=== PATIENT | female | born 1960 | race Caucasian/White ===

== ENCOUNTER → 2017-05-11 12:38 | Outpatient (CLI) | payer BC, MEDICARE, SELFPAY ==
[2017-05-11 13:57] VITALS: PULSE 100; PULSE 103; PULSE 106; PULSE 110; PULSE 112; PULSE 88; PULSE 89; O2SAT 82; O2SAT 84; O2SAT 86; O2SAT 90; O2SAT 92; O2SAT 95
--- NOTE | 2017-05-11 14:09 | CPS ---
Patient has oxygen established at home by [facility]. 6 minute walk began with patient on room air. At 1 min, her spo2 was 82%, rested and applied pt's own 2lpm demand flow At 2 min, her spo2 was 84%, rested and increased to 3lpm demand flow At 4 min, her spo2 was 86%, rested and increased to 4lpm demand flow At 6 min, her spo2 was 86%, rested and placed on 2LPM CONTINUOUS flow. Patient ambulated another minute(4 laps) with spo2 maintaining at 92%
--- NOTE | 2017-05-12 07:06 | WT_ITS ---
PSN 6 Minute Walk Test - 6 Minute Walk Test 6 Minute Walk Test: 6 Minute Walk Test PSN:6-Minute Walk Test Start: 05/11/17 13: 57 Freq: Status: Active Protocol: RESP.6MINW Document 05/11/17 13:57 [facility] (Rec: 05/11/17 14:24 [facility] [id number]) 6 Minute Walk Test Date Performed 05/11/17 Time Performed 12:30 Height 5 ft 4 in Weight: 86.636 kg Weight in Pounds 191.[address]: Rick Torres Assistive device used: None Pre-test Oxygen Delivery Method Room Air Pulse Ox (%) 92 Pulse Rate (60-100 beats/min) 88 Dyspnea Shi Scale (0-10) 1 1st minute Oxygen Delivery Method Room Air Pulse Ox (%) 82 Pulse Rate (60-100 beats/min) 103 H Dyspnea Shi Scale (0-10) 2 Reported Symptoms Cyanotic Increased Work of Breathing Dizziness 2nd minute Oxygen Flow Rate (L/min) 2 Oxygen Delivery Method Nasal Cannula Pulse Ox (%) 84 Pulse Rate (60-100 beats/min) 100 Dyspnea Shi Scale (0-10) 2 Number of Rests Taken 1 Reported Symptoms Increased Work of Breathing Dizziness 3rd minute Oxygen Flow Rate (L/min) 3 Oxygen Delivery Method Nasal Cannula Pulse Ox (%) 90 Pulse Rate (60-100 beats/min) 106 H Dyspnea Shi Scale (0-10) 3 Reported Symptoms Increased Work of Breathing 4th minute Oxygen Flow Rate (L/min) 3 Oxygen Delivery Method Nasal Cannula Pulse Ox (%) 86 Pulse Rate (60-100 beats/min) 110 H Dyspnea Shi Scale (0-10) 4 Number of Rests Taken 1 Reported Symptoms Increased Work of Breathing Dizziness 5th minute Oxygen Flow Rate (L/min) 4 Oxygen Delivery Method Nasal Cannula Pulse Ox (%) 92 Pulse Rate (60-100 beats/min) 100 Dyspnea Shi Scale (0-10) 3 Reported Symptoms Increased Work of Breathing 6th minute Oxygen Delivery Method Nasal Cannula Pulse Ox (%) 86 Pulse Rate (60-100 beats/min) 112 H Dyspnea Shi Scale (0-10) 4 Number of Rests Taken 1 Reported Symptoms Increased Work of Breathing Dizziness Post-test Oxygen Flow Rate (L/min) 2 Oxygen Delivery Method Nasal Cannula Pulse Ox (%) 95 Pulse Rate (60-100 beats/min) 89 Dyspnea Shi Scale (0-10) 1 Full Laps Walked 12 Partial Lap, Number of Tiles Walked 20 Total Distance Walked (ft) 728 05/11/17 14:09 Cardiopulmonary Services by Aicha Jones Patient has oxygen established at home by [facility]. 6 minute walk began with patient on room air. At 1 min, her spo2 was 82%, rested and applied pt's own 2lpm demand flow At 2 min, her spo2 was 84%, rested and increased to 3lpm demand flow At 4 min, her spo2 was 86%, rested and increased to 4lpm demand flow At 6 min, her spo2 was 86%, rested and placed on 2LPM CONTINUOUS flow. Patient ambulated another minute(4 laps) with spo2 maintaining at 92% Initialized on 05/11/17 14:09 - END OF NOTE - Interpretation Interpretation: Patient was noted to be 92% on room air. The patient was able to travel a total of 728 feet over the course of 6 minutes, but did require 4 breaks secondary to increased work of breathing and leg pain. Patient also was titrated up on demand flow oxygen, but required 2 L/min of continuous flow to maintain saturations. These findings are consistent with a respiratory limitation exercise tolerance - Recommendations Recommendations: The patient requires no supplemental oxygen at rest. However, patient should be using continuous flow oxygen with ambulation at 2 L/min.
== END ==
PROVIDERS: Family Provider Preventive Medicine Occupational Medicine; PCP Preventive Medicine Occupational Medicine; Visit Provider Internal Medicine Critical Care Medicine
DX: R06.9 Unspecified abnormalities of breathing (principal); M79.606 Pain in leg, unspecified
CPT/HCPCS: 94618

== ENCOUNTER → 2017-05-16 09:48 | Outpatient (CLI) | payer BC, MEDICARE, SELFPAY ==
--- NOTE | 2017-05-18 11:26 | PFT ---
INTRODUCTION: The patient is a 57-year-old female currently under the care of Dr. Torres that presents for pulmonary function testing secondary to a diagnosis of COPD. Respiratory therapy reports good patient effort reports no other concerns. Bronchodilators were used during testing. INTERPRETATION: Forced expiration spirometry demonstrates the presence of a very severe large airways obstructive ventilatory defect. There was no significant response to aerosolized bronchodilators, based upon strict ATS criteria. Spirograms are of fair quality and do not plateau indicating slow emptying of the lungs. The respiratory flow volume loop reveals decreased expiratory flow rates at all lung volumes consistent with airways obstruction. Body plethysmography was performed and reveals an elevated RV to 193% of predicted, indicative of underlying air trapping. Diffusing capacity by single breath CO is severely reduced at 25% of predicted. When compared to previous pulmonary function studies dated July 2015 there is been stability in the patient's spirometric values with a notable 19% decrease in DLCO. IMPRESSION: These pulmonary function studies demonstrate the presence of an irreversible very severe large airways obstructive ventilatory defect with associated air trapping and symmetric reduction in diffusing capacity. There has been a 19% reduction in the patient's DLCO since PFTs were last completed in July 2015. Clinical correlation is recommended.
== END ==
PROVIDERS: Family Provider Preventive Medicine Occupational Medicine; PCP Preventive Medicine Occupational Medicine; Visit Provider Internal Medicine Critical Care Medicine
DX: J44.9 Chronic obstructive pulmonary disease, unspecified (principal)
CPT/HCPCS: 94060; 94726; 94729

== ENCOUNTER → 2017-06-26 11:20 | Outpatient (CLI) | payer BC, MEDICARE, SELFPAY ==
--- NOTE | 2017-06-26 11:32 | RAD_ITS ---
STUDY: X-RAY CHEST REASON FOR EXAM: Female, 57 years old. Increasing shortness of breath. TECHNIQUE: Frontal and lateral views of the chest. COMPARISON: 07/12/2016. FINDINGS: The lungs are hyperexpanded. There are coarsened interstitial markings suggestive of mild chronic fibrosis. No gross focal infiltrates. No gross effusions. Normal size heart. Normal mediastinum and tyrone. Normal visualized pulmonary arteries. Normal visualized aortic arch and descending thoracic aorta. There are diffuse degenerative changes of the visualized thoracic spine. Normal visualized ribs, clavicles, and shoulders. There is no demonstrated abnormality of the visualized soft tissue structures of the upper abdomen. RAD/Chest PA and Lateral IMPRESSION: No acute chest disease. COPD with probable mild fibrosis. Electronically Signed: Marcio Harmon MD at 16:41 EDT , Service support ,
[2017-06-26 12:54] LABS: Anion Gap 6 (5-15); BUN 12 mg/dL (7-18); BUN/Creat Ratio 16.6 RATIO (10-20); Calcium,Total 8.9 mg/dL (8.5-10.1); Chloride 95 mmol/L (98-107); Creatinine, Serum 0.72 mg/dL (0.55-1.02); EST Glomerular Filtration Rate 88 mL/min (>60); Est Glom Filt Rate - Afr Amer 106 mL/min (>60); Glucose 141 mg/dL (74-106); Potassium 3.7 mmol/L (3.5-5.1); Sodium Level 141 mmol/L (136-145)
[2017-06-26 13:15] LABS: BNP,B-Type NATRIURETIC PEPTIDE 13.5 pg/mL (0-100)
== END ==
PROVIDERS: Family Provider Preventive Medicine Occupational Medicine; PCP Preventive Medicine Occupational Medicine; Visit Provider Nurse Practitioner Acute Care
DX: R06.02 Shortness of breath (principal); R05 Cough
CPT/HCPCS: 36415; 71046; 80048; 83880; 87070; 87205

== ENCOUNTER 2019-07-29 20:32 | Inpatient (IN) | payer BC, MEDICARE, SELFPAY ==
[2018-10-07 14:08] VITALS: BMI 33.5
[2019-07-29] VITALS (17 sets, daily range): BP systolic 42–111; BP diastolic 14–85; PULSE 60–91; RESP 14–23; O2SAT 89–100; BMI 35.2
--- NOTE | 2019-07-29 20:39 | PCM.HP.STD ---
Problem List (1) Pneumonia Status: Acute (2) Septic shock Status: Acute (3) Murmur, cardiac Status: Chronic (4) Sinus infection Status: Inactive Qualifiers: (5) AISSATOU (obstructive sleep apnea) Status: Chronic (6) SOB (shortness of breath) on exertion Status: Inactive (7) AISSATOU treated with BiPAP Status: Chronic (8) Chronic respiratory failure with hypoxia Status: Chronic (9) Stage 4 very severe COPD by GOLD classification Status: Chronic History of Present Illness Date of Admission: 07/29/19 Chief Complaint: respiratory failure from pnuemonia History was obtained from a previous hospitalist as patient was intubated. The patient is a 59 year old F with a significant history of end-stage COPD who was transferred from arrival emergency department because of respiratory failure from pneumonia. Patient was intubated at arrival emergency department. She became hypotensive and she arrested. She went from V. tach to asystole to PEA to normal sinus rhythm. Patient was started on levo fed for septic shock. Central line was placed. Patient was previously on hospice but she rescinded her decision before this new presentation. Pick Up Attendant was notified by emergency department doctor. Patient is allergic to penicillin. She was given vancomycin and Levaquin at outside hospital ED. COVID-19 test was done at outside hospital ED. Results of COVID-19 is pending. The patient is a 59 year old F with a significant history of end-stage COPD who was transferred from arrival emergency department because of septic shock secondary to pneumonia. Septic shock Continue patient on vancomycin and Levaquin. Add azithromycin. Get blood culture x2. Get sputum culture. Get strep pneumonia antigen and Legionella urine antigen. Get MRSA nasal screen. Pick Up Attendant consult. Continue Levophed. Stop amiodarone since patient is hypotensive with systolic blood pressure in the 50s. Get lactic acid. Follow COVID- 19 test ordered from outside hospital ED. Trend CBC and BMP. Get chest x-ray in a.m. Acute hypoxemic respiratory failure Continue vent. ABG Consult log operations coordinator. DVT Prophylaxis Subcutaneous Lovenox. Past Medical History Past Medical History (Chronic Problems): Chronic Problems (Last Reviewed 07/29/19 @ 20:[address] Feliberto Rahman MD) Murmur, cardiac (Chronic) AISSATOU (obstructive sleep apnea) (Chronic) AISSATOU treated with BiPAP (Chronic) Chronic respiratory failure with hypoxia (Chronic) Stage 4 very severe COPD by GOLD classification (Chronic) Medical History: Medical History (Last Reviewed 07/29/19 @ 20:[address] Feliberto Rahman MD) Bilateral leg edema R60.0 COPD with acute exacerbation J44.1 Hyperlipidemia E78.5 Low back pain M54.5 Lower gastrointestinal hemorrhage K92.2 Nonallopathic lesion of cervical region M99.9 Nonallopathic lesion of rib cage M99.9 Nonallopathic lesion of thoracic region M99.9 Pneumonia J18.9 Rectal hemorrhage K62.5 Thoracic back pain M54.6 Thrush B37.0 Yeast infection B37.9 Chronic respiratory failure J96.10 Diabetes mellitus E11.9 AISSATOU (obstructive sleep apnea) G47.33 Stage 4 very severe COPD by GOLD classification J44.9 Allergies acetaminophen [From Tylenol-Codeine #3] Allergy (Intermediate, Verified 10/07/18 13:47) Other - hallucinations bee venom protein (honey bee) Allergy (Intermediate, Verified 10/07/18 13:47) Other - localized hearing codeine [From Tylenol-Codeine #3] Allergy (Intermediate, Verified 10/07/18 13:47) Other - hallucinations aspirin Allergy (Mild, Verified 10/07/18 13:47) Nausea baclofen Allergy (Mild, Verified 10/07/18 13:47) Nausea celecoxib [From Celebrex] Allergy (Mild, Verified 10/07/18 13:47) Nausea rofecoxib [From Vioxx] Allergy (Unknown, Verified 10/07/18 13:47) Unknown ibuprofen [From Advil] Adverse Reaction (Mild, Verified 10/07/18 13:47) Other - tunnel hearing lisinopril Adverse Reaction (Mild, Verified 10/07/18 13:47) Other - woozy Home Medications: Ambulatory Orders Medication Instructions Recorded albuterol sulfate 90 mcg/actuation 2 puff INHALATION Q4H PRN g 04/13/17 aerosol inhaler chlorpheniramine maleate 4 mg 4 mg PO Q4H PRN 04/13/17 tablet metformin 750 mg tablet,extended 750 mg PO QDAY 04/13/17 release 24 hr pantoprazole 40 mg tablet,delayed 40 mg PO BID tab 04/13/17 release albuterol sulfate 2.5 mg INHALATION Q4H PRN #180 vial 12/06/17 roflumilast 500 mcg tablet 500 mcg PO QDAY #90 tab 01/02/18 budesonide 32 mcg/actuation nasal 1 spray INTRANASAL DAILY 01/23/18 spray chlorpheniramine maleate 4 mg 4 mg PO Q6H 01/23/18 tablet fluticasone 250 mcg-salmeterol 50 1 inh INHALATION BID 01/23/18 mcg/dose blistr powdr for inhalation furosemide 40 mg tablet 20 mg PO ONCE tab 01/23/18 hydrocodone 7.5 mg-acetaminophen 1 tab PO TID PRN tab 01/23/18 325 mg tablet loratadine 10 mg tablet 10 mg PO DAILY 01/23/18 lorazepam 1 mg tablet 0.5 mg PO .qid tab 01/23/18 morphine concentrate 100 mg/5 mL 2.5 mg SUBLINGUAL Q6H ml 01/23/18 (20 mg/mL) oral solution sodium chloride 0.65 % nasal spray 1 spray INTRANASAL Q1-4H PRN 01/23/18 aerosol tiotropium bromide 2.5 2 puff INHALATION QDAY #3 ea 06/19/18 mcg/actuation mist for inhalation azithromycin 250 mg tablet 250 mg PO QDAY #6 tab 10/07/18 prednisone 10 mg tablet 10 mg PO QDAY #30 tab 10/07/18 prednisone 5 mg tablet 5 mg PO QDAY #30 tab 10/14/18 Surgical History: Surgical History (Last Reviewed 07/29/19 @ 20:[address] Feliberto Rahman MD) H/O wisdom tooth extraction K08.499 1993 Smoking Status: Former smoker - *Family History Maternal Family History: Family History (Last Reviewed 07/29/19 @ 20:[address] Feliberto Rahman MD) Mother CVA (cerebral vascular accident) Kidney disease Father Diabetes Cancer Brother Heart disease Diabetes Sister Diabetes Review of Systems Unable to obtain accurate/complete ROS d/t: Intubated. VTE Information - Inpt Only VTE Present on Admission: No VTE Pharm Prophylaxis ordered?: Yes Patient Problems: Active and Suspected Problems (Last Reviewed 07/29/19 @ 20:[address] Feliberto Rahman MD) Pneumonia (Acute) Septic shock (Acute) - Physical Exam Vitals/I&O's: Weight: 93 kg Body Mass Index (BMI) 35.2 General: Alert, - - Intubated HEENT: Atraumatic, PERRLA, EOMI, Normocephalic Neck: Supple, Trachea Midline Lungs: Clear to auscultation, Normal air movement Cardiovascular: Regular rate, Normal S1, Normal S2 Abdomen: Bowel Sounds Present, Soft, Non Tender Extremities: Cool, Edema Skin: No rashes, No breakdown Musculoskeletal: No Tenderness to Palpation of Joints or Extremities Neurological: Cranial nerves II-XII grossly intact Psych/Mental Status: Anxious Current Medications Norepinephrine Bitartrate 8 mg (/ Sodium Chloride) 250 mls @ 9.375 mls/hr CONT INF .[id number] TI; Protocol Sodium Chloride () 250 mls @ 15 mls/hr IV .[id number] PRN PRN Reason: Saline Flush Sodium Chloride () 250 mls @ 15 mls/hr IV .[id number] PRN PRN Reason: Additional IVPB Infusion Sodium Chloride () 10 - 40 ml IV UD PRN PRN Reason: Multilumen/Hoffman Flush Sodium Chloride (0.9% Nacl (Sterile) Posiflush) 10 - 40 ml IV UD PRN PRN Reason: Port access or dressing change Sodium Chloride () 10 - 40 ml IV UD PRN PRN Reason: SALINE FLUSH Assessment/Plan All Active Problems (Last Reviewed 07/29/19 @ 20:[address] Feliberto Rahman MD) Pneumonia (Acute) Septic shock (Acute) The patient is a 59 year old F with a significant history of end-stage COPD who was transferred from arrival emergency department because of septic shock secondary to pneumonia. Septic shock Continue patient on vancomycin and Levaquin. Add aztreonam. Get blood culture x2. Get sputum culture. Get strep pneumonia antigen and Legionella urine antigen. Get MRSA nasal screen. Pick Up Attendant consult. Continue Levophed. Stop amiodarone since patient is hypotensive with systolic blood pressure in the 50s. Get lactic acid. Follow COVID- 19 test ordered from outside hospital ED. On a propofol and fentanyl drip. On home med list is prednisone. Will start patient on hydrocortisone. Trend CBC and BMP. Get Xray Acute hypoxemic respiratory failure Continue vent. ABG Consult log operations coordinator. DVT Prophylaxis Subcutaneous Lovenox. Inpatient E&M: 54153 Init Hosp L3
[2019-07-29] MEDS: Propofol 10MG/Ml 1,000 MG/100 ML Bottle 5.6 MG CONT INF (21:39)
[2019-07-29] MEDS: fentaNYL drip 100 ML 2.5 MCG IV (21:39)
--- NOTE | 2019-07-29 21:40 | RAD_ITS ---
STUDY: X-RAY CHEST REASON FOR EXAM: Female, 59 years old. ETT PLACEMENT, CENTRAL LINE PLACEMENT, OG TUBE PLACEMENT TECHNIQUE: AP portable COMPARISON: June 26, 2017 FINDINGS: Lungs are mildly hyperinflated but clear.. Blunted left costophrenic sulcus consistent with pleural thickening although cannot exclude tiny effusion. Normal size heart. Normal mediastinum and tyrone. Normal visualized pulmonary arteries. Normal visualized aortic arch and descending thoracic aorta. Central line is seen on the right with tip in distal superior vena cava approximately 3 cm proximal to the atriocaval junction. Right central line is also noted with tip in distal superior vena cava Endotracheal tube is noted with tip approximately 5 cm proximal to yissel Normal visualized thoracic spine. Normal visualized ribs, clavicles, and shoulders. Nasogastric tube is noted with tip in the proximal gastric cardia There is no demonstrated abnormality of the visualized soft tissue structures of the upper abdomen. RAD/Chest 1 View (Portable) IMPRESSION: No acute disease status post OG tube and multiple line placement Electronically Signed: Kris Boggs MD at 21:58 EDT , Service support ,
[2019-07-29] MEDS: Hydrocortisone Sod Succinate 100 MG/2 ML Vial 50 MG IV (22:04)
[2019-07-29] MEDS: Chlorhexidine 15 ML PO (22:30)
[2019-07-29 22:43] LABS: Triglycerides 117 mg/dL
[2019-07-29 22:46] LABS: Magnesium 1.8 mg/dL (1.6-2.6)
[2019-07-29 22:50] LABS: Base Excess 0 mmol/L (-2 to +2); Bicarbonate 27.8 mmol/L (22-26); PO2 102 mmHG (75-100); SO2 96 % (95-99); Total Carbon Dioxide 30 mmol/L; pCO2 66.5 mmHg (35-45); pH 7.23 (7.35-7.45)
[2019-07-29 22:50] LABS: Lactic Acid 2.4 mmol/L (0.4-1.9)
[2019-07-29 22:57] LABS: CPK Total, Creatine Kinase 280 U/L (26-192)
[2019-07-29 23:36] LABS: M R Staph aureus DNA By PCR Negative (Negative); Probe Check PASS; Specimen Processing Control PASS
[2019-07-29 23:39] LABS: Allen Test POS; Blood Gas Specimen Type ART; FI02 50; Mode A-C; O2 Delivery Device Vent; PEEP 5; RR 16; SITE L RADIAL; Vt 450
[2019-07-29 23:40] LABS: Time Given 2138
[2019-07-30] VITALS (59 sets, daily range): BP systolic 91–148; BP diastolic 31–70; PULSE 18–96; RESP 16–20; TEMP 36.1–37.1; O2SAT 89–100; BMI 35.4
[2019-07-30 02:19] LABS: Reflex Lactate? Y
[2019-07-30 02:22] LABS: Lactic Acid 2.8 mmol/L (0.4-1.9)
[2019-07-30 02:23] LABS: Reflex Lactate? N
--- NOTE | 2019-07-30 02:39 | ECHOCS_ITS ---
Reason For Study: ARRHYTHMIA Procedure This was a 2D Doppler, Color Flow transthoracic echocardiogram. The study was technically difficult. The study was technically limited. Patient was scanned in supine position during reflux assessment. Exam performed portable in ICU/CCU. The exam was abbreviated due to the COVID 19 protocol. Left Ventricle Normal size and thickness. The estimated ejection fraction is 65 %. Stage 1 diastolic dysfunction. No regional wall motion abnormalities noted. Right Ventricle Normal size and thickness. Normal systolic function. Atria Normal left atrium. Normal right atrium. Normal atrial septum. Mitral Valve The mitral valve is structurally normal. No prolapse or stenosis seen. Tricuspid Valve Normal tricuspid valve. Trivial tricuspid valve insufficiency. Right ventricular systolic pressure estimated to be 15 mmHg. Aortic Valve Normal aortic valve. Trisinus/trileaflet aortic valve. Pulmonic Valve Normal pulmonic valve. Great Vessels Normal aortic root. Normal arch. Normal inferior vena cava. Inferior vena cava collapse with sniff. Pericardium/Pleural No pericardial effusion. Medication Diluted definity 3.0ml given slow IV push to enhance endocardial definition. MMode/2D Measurements & Calculations LVIDd: 4.8 cm IVSd: 1.1 cm LAV(MOD-bp): 35.4 ml LVIDs: 3.8 cm LVPWd: 1.0 cm FS: 21.9 % LAV(MOD-bp) Indexed: 17.9 ml/m2 LAV(MOD-sp2): 39.9 ml LAV(MOD-sp4): 30.3 ml LA A4 area: 13.1 cm2 RA A4 area: 11.8 cm2 Doppler Measurements & Calculations MV E max megan: 82.8 cm/sec Ao V2 max: 159.2 cm/sec LV V1 max: 114.9 cm/sec MV A max megan: 100.2 cm/sec Ao max P.1 mmHg LV V1 max P.3 mmHg MV E/A: 0.83 Interpretation Summary The estimated ejection fraction is 65 %. Stage 1 diastolic dysfunction. Trivial tricuspid valve insufficiency. Right ventricular systolic pressure estimated to be 15 mmHg. Compared to echo report dated 10/12/2014, no appreciable changes noted. The study was technically difficult. Contrast injection was performed. Ordering Physician: Feliberto Rahman Referring Physician: Jayden Celaya Performed By: Radha Keller RDCS, RVT
--- NOTE | 2019-07-30 02:40 | EKG12_ITS ---
Test Reason : ELEVATED TROP Blood Pressure : / mmHG Vent. Rate : 081 BPM Atrial Rate : 081 BPM P-R Int : 134 ms QRS Dur : 084 ms QT Int : 362 ms P-R-T Axes : 078 -19 018 degrees QTc Int : 420 ms Normal sinus rhythm Low voltage QRS (limb leads) Confirmed by SAVITA DENNIS, ABRAHAM ([id number]), design editor SARAH GONZALEZ ([id number]) on 08/04/2019 3:00:34 PM Referred By: BRAXTON Confirmed By:ABRAHAM BARNEY MD
[2019-07-30] MEDS: Atorvastatin Calcium 40 MG Tablet PO ×2 (03:40→21:20)
[2019-07-30] MEDS: Aspirin 325 MG Tablet PO (03:40)
[2019-07-30] MEDS: Heparin Injection (Vial) 5,000 UNIT/ML VIAL 7500 UNIT IV (03:45)
[2019-07-30] MEDS: HEPARIN/D5w 25,000 UNITS 25,000 UNITS/250 ML IV.SOLN. 14 UNITS IV (03:45)
[2019-07-30 03:54] LABS: International Normalized Ratio 1.7
[2019-07-30 03:55] LABS: Partial Thromboplast Time 35.6 Seconds (24.1-36.2)
[2019-07-30] MEDS: Hydrocortisone Sod Succinate 100 MG/2 ML Vial 50 MG IV ×3 (04:02→21:20)
[2019-07-30] MEDS: 0.9% Saline Lock 10 ML Syringe IV ×6 (04:03→21:19)
[2019-07-30] MEDS: 0.9% Normal Saline 1,000 ML 75 ML IV ×2 (04:51→20:45)
[2019-07-30 04:53] LABS: Absolute Lymphocyte Count 0.87 X10^3/uL (0.83-4.51); Absolute Neutrophil Count 19.5 X10^3/uL (2.0-7.7); Basophil# 0.04 X10^3/uL; Basophil% 0.2 % (0-1); Eosinophil# 0.21 X10^3/uL; Hematocrit 32.7 % (37-47); Hemoglobin 9.9 g/dL (12.0-15.0); Lymphocyte # 0.87 X10^3/ul (4.0); Lymphocyte % 4.1 % (19-41); Mean Corp Hgb Conc 30.3 g/dL (32-36); Mean Corpuscular Hgb 29.2 pg (27.0-32.0); Mean Corpuscular Volume 96.5 fL (81-99); Mean Platelet Vol. 11.1 fl (6.2-12.0); Monocyte# 0.75 X10^3/uL; Monocyte% 3.5 % (0-10); NRBC Flagged by Analyzer 0 % (0-5); Neutrophil # 19.47 X10^3/uL (2.7-7.7); Neutrophil % 90.5 % (47-70); Platelet Count 208 K/mm3 (150-450); RBC Distribution Width CV 13.2 % (11.6-14.6); RBC Distribution Width SD 47.4 fl (35.1-43.9); Red Blood Count 3.39 M/mm3 (4.2-5.4); White Blood Count 21.5 K/mm3 (4.4-11.0)
[2019-07-30] MEDS: Propofol 10MG/Ml 1,000 MG/100 ML Bottle 8.4 MG CONT INF ×2 (04:56→10:00)
[2019-07-30 05:05] LABS: Anion Gap 9 (5-15); BUN 31 mg/dL (7-18); BUN/Creat Ratio 17.1 RATIO (10-20); Calcium,Total 7.5 mg/dL (8.5-10.1); Chloride 102 mmol/L (98-107); Creatinine, Serum 1.81 mg/dL (0.55-1.02); EST Glomerular Filtration Rate 30 mL/min (>60); Est Glom Filt Rate - Afr Amer 37 mL/min (>60); Glucose 214 mg/dL (74-106); Potassium 4.8 mmol/L (3.5-5.1); Sodium Level 136 mmol/L (136-145)
[2019-07-30 05:21] LABS: Lactic Acid 1.7 mmol/L (0.4-1.9)
--- NOTE | 2019-07-30 06:02 | PCM.RX.CS ---
Consult Pharmacy has been consulted to manage selected antiobiotic: Vancomycin Type of Consult: New start Suspected Infection: Sepsis Labs: Sodium 136 mmol/L (136-145) 07/30/19 04:40 Potassium 4.8 mmol/L (3.5-5.1) 07/30/19 04:40 Chloride 102 mmol/L (98-107) 07/30/19 04:40 Carbon Dioxide 25.0 mmol/L (21.0-32.0) 07/30/19 04:40 Anion Gap 9 (5-15) 07/30/19 04:40 BUN 31 mg/dL (7-18) H 07/30/19 04:40 Creatinine 1.81 mg/dL (0.55-1.02) H 07/30/19 04:40 Est GFR (MDRD) Af Amer 37 mL/min (>60) L 07/30/19 04:40 Est GFR (MDRD) Non-Af 30 mL/min (>60) L 07/30/19 04:40 BUN/Creatinine Ratio 17.1 RATIO (10-20) 07/30/19 04:40 Glucose 214 mg/dL (74-106) H 07/30/19 04:40 Microbiology: Microbiology 07/30/19 03:30 Stool C. difficile DNA Amplification - Final 07/29/19 21:00 Mucosa - Nasopharyngeal Respiratory Panel (PCR) - Preliminary 07/29/19 22:10 Urine Catheter - Jimenez Streptococcus pneumoniae Antigen (M - Final 07/29/19 22:10 Urine Catheter - Jimenez Legionella Antigen - Final Weight used for dosin kg Estimated Creatinine Clearance: 36.99 Goal Trough: 15-20 mcg/mL Pharmacy Plan for Drug Dosing: Pharmacy Service will continue to monitor and adjust dosing as required. Medications Vancomycin HCl 1,250 mg/ (Sodium Chloride) 275 mls @ 167 mls/hr IV Q24H TI Discontinued Medications Vancomycin HCl 1,500 mg/ (Sodium Chloride) 530 mls @ 250 mls/hr IV X1 ONE Stop: 07/30/19 00:07 Last Admin: 07/30/19 02:39 Dose: Infused Documented by: Follow-Up Labs: Trough Vancomycin Labs to be done on [date and time ordered]: 07/30 @ 3432
[2019-07-30] MEDS: Ipratropium/Albuterol Sulfate 3 ML AMPUL.NEB INHALATION ×4 (07:00→22:50)
[2019-07-30] MEDS: Chlorhexidine 15 ML PO ×2 (08:10→21:19)
--- NOTE | 2019-07-30 08:24 | CON.PCM_ITS ---
Problem List (1) Respiratory arrest before cardiac arrest Status: Acute (2) Acute kidney injury Status: Acute (3) Acute and chronic respiratory failure ([id number]) Status: Chronic Qualifiers: Respiratory failure complication: hypoxia and hypercapnia Qualified Code(s): J96.21 - Acute and chronic respiratory failure with hypoxia; J96.22 - Acute and chronic respiratory failure with hypercapnia (4) Non-ST elevated myocardial infarction Status: Acute (5) Pneumonia Status: Suspected Qualifiers: Pneumonia type: due to unspecified organism Laterality: unspecified laterality Lung location: unspecified part of lung Qualified Code(s): J18.9 - Pneumonia, unspecified organism (6) Septic shock Status: Acute (7) AISSATOU (obstructive sleep apnea) Status: Chronic (8) AISSATOU treated with BiPAP Status: Chronic (9) Chronic respiratory failure with hypoxia Status: Chronic (10) Stage 4 very severe COPD by GOLD classification Status: Chronic Reason for Consult Date of Consultation: 07/30/19 Reason for Consultation: Status post arrest History of Present Illness: The patient is a 59 year old F, with past medical history listed below and well- known to me from the outpatient office, who presented to [facility] secondary to progressive shortness of breath. Patient reportedly revoked her DNR DNI status and shortly after arrival to the emergency department, patient had a respiratory arrest requiring intubation. This was followed by a cardiac arrest requiring 30 minutes of CPR, 3 rounds of epinephrine, amiodarone and 2 electric shocks. Patient reportedly had V. tach, asystole and PEA as reported rhythms. Patient was placed on Levophed by the outside ER. [facility] was consulted, but stated that the patient was likely terminal. A COVID test was reportedly sent on the patient prior to transfer. I was called at home and accepted the patient. On arrival to our intensive care unit, patient was hypoxic and hypotensive. Patient was receiving Levophed for septic shock, but have been given vasopressin as a bolus. Patient was given vancomycin and Levaquin at the outside facility. Nursing reported the patient was able to follow commands and was making attempts to extubate herself. Patient was initiated on vasopressin with some improvement in Levophed requirements. Patient was also initiated on stress dose steroids. This morning, patient was able to nod her head yes to chest pain. This was reproducible with palpation of the sternum. Patient was unable to provide additional history secondary to intubation, but was following commands appropriately. Respiratory had reported significant secretions that have been sent for culture. Oxygenation has significantly improved and patient is currently on 35%. Unable to obtain a full review of systems secondary to patient's intubated status. Past Medical History Past Medical History (Chronic Problems): Chronic Problems (Last Reviewed 07/29/19 @ 20:[address] Feliberto Rahman MD) Acute and chronic respiratory failure ([id number]) (Chronic) Murmur, cardiac (Chronic) AISSATOU (obstructive sleep apnea) (Chronic) AISSATOU treated with BiPAP (Chronic) Chronic respiratory failure with hypoxia (Chronic) Stage 4 very severe COPD by GOLD classification (Chronic) Medical History: Medical History (Last Reviewed 07/29/19 @ 20:[address] Feliberto Rahman MD) Bilateral leg edema R60.0 COPD with acute exacerbation J44.1 Hyperlipidemia E78.5 Low back pain M54.5 Lower gastrointestinal hemorrhage K92.2 Nonallopathic lesion of cervical region M99.9 Nonallopathic lesion of rib cage M99.9 Nonallopathic lesion of thoracic region M99.9 Pneumonia J18.9 Rectal hemorrhage K62.5 Thoracic back pain M54.6 Thrush B37.0 Yeast infection B37.9 Chronic respiratory failure J96.10 Diabetes mellitus E11.9 AISSATOU (obstructive sleep apnea) G47.33 Stage 4 very severe COPD by GOLD classification J44.9 Allergies acetaminophen [From Tylenol-Codeine #3] Allergy (Intermediate, Verified 10/07/18 13:47) Other - hallucinations bee venom protein (honey bee) Allergy (Intermediate, Verified 10/07/18 13:47) Other - localized hearing codeine [From Tylenol-Codeine #3] Allergy (Intermediate, Verified 10/07/18 13:47) Other - hallucinations aspirin Allergy (Mild, Verified 10/07/18 13:47) Nausea baclofen Allergy (Mild, Verified 10/07/18 13:47) Nausea celecoxib [From Celebrex] Allergy (Mild, Verified 10/07/18 13:47) Nausea rofecoxib [From Vioxx] Allergy (Unknown, Verified 10/07/18 13:47) Unknown ibuprofen [From Advil] Adverse Reaction (Mild, Verified 10/07/18 13:47) Other - tunnel hearing lisinopril Adverse Reaction (Mild, Verified 10/07/18 13:47) Other - woozy Home Medications: Ambulatory Orders Medication Instructions Recorded albuterol sulfate 90 mcg/actuation 2 puff INHALATION Q4H PRN g 04/13/17 aerosol inhaler chlorpheniramine maleate 4 mg 4 mg PO Q4H PRN 04/13/17 tablet metformin 750 mg tablet,extended 750 mg PO QDAY 04/13/17 release 24 hr pantoprazole 40 mg tablet,delayed 40 mg PO BID tab 04/13/17 release albuterol sulfate 2.5 mg INHALATION Q4H PRN #180 vial 12/06/17 roflumilast 500 mcg tablet 500 mcg PO QDAY #90 tab 01/02/18 budesonide 32 mcg/actuation nasal 1 spray INTRANASAL DAILY 01/23/18 spray chlorpheniramine maleate 4 mg 4 mg PO Q6H 01/23/18 tablet fluticasone 250 mcg-salmeterol 50 1 inh INHALATION BID 01/23/18 mcg/dose blistr powdr for inhalation furosemide 40 mg tablet 20 mg PO ONCE tab 01/23/18 hydrocodone 7.5 mg-acetaminophen 1 tab PO TID PRN tab 01/23/18 325 mg tablet loratadine 10 mg tablet 10 mg PO DAILY 01/23/18 lorazepam 1 mg tablet 0.5 mg PO .qid tab 01/23/18 morphine concentrate 100 mg/5 mL 2.5 mg SUBLINGUAL Q6H ml 01/23/18 (20 mg/mL) oral solution sodium chloride 0.65 % nasal spray 1 spray INTRANASAL Q1-4H PRN 01/23/18 aerosol tiotropium bromide 2.5 2 puff INHALATION QDAY #3 ea 06/19/18 mcg/actuation mist for inhalation azithromycin 250 mg tablet 250 mg PO QDAY #6 tab 10/07/18 prednisone 10 mg tablet 10 mg PO QDAY #30 tab 10/07/18 prednisone 5 mg tablet 5 mg PO QDAY #30 tab 10/14/18 Surgical History: Surgical History (Last Reviewed 07/29/19 @ 20:[address] Feliberto aRhman MD) H/O wisdom tooth extraction K08.499 1993 Smoking Status: Former smoker - *Family History Maternal Family History: Family History (Last Reviewed 07/29/19 @ 20:[address] Feliberto Rahman MD) Mother CVA (cerebral vascular accident) Kidney disease Father Diabetes Cancer Brother Heart disease Diabetes Sister Diabetes Review of Systems Unable to obtain accurate/complete ROS d/t: Intubation Patient Problems: Active and Suspected Problems (Last Reviewed 07/29/19 @ 20:[address] Feliberto Rahman MD) Pneumonia (Suspected) Septic shock (Acute) Respiratory arrest before cardiac arrest (Acute) Acute kidney injury (Acute) Non-ST elevated myocardial infarction (Acute) Objective: Chest x-ray was personally reviewed and showed no acute infiltrates that I can tell. Supportive devices appear to be in appropriate locations. Patient has not had an echocardiogram in the last 4 years. Patient's previous pulmonary function test was completed recently showing an FEV1 of 26% with a proportional reduction in DLCO. Patient has refused transplant evaluation in the past. - Physical Exam Vitals/I&O's: Vital Signs Temp Pulse Resp BP Pulse Ox 36.1 C L 84 18 116/43 L 92 07/30/19 04:00 07/30/19 06:56 07/30/19 06:56 07/30/19 06:00 07/30/19 06:56 Oxygen Flow Rate (L/min) 40 Oxygen Delivery Method Mechanical Ventilator Weight: 93.7 kg Body Mass Index (BMI) 35.2 Intake and Output for Last 24 Hours 07/28/19 07/29/19 07/30/19 23:59 23:59 23:59 Intake Total 270.34 / 288.02 1041.13 / 1041.13 Output Total 75 / 75 75 / 75 Balance 195.34 / 213.02 966.13 / 966.13 General: Alert, Cooperative, - - Good vent synchrony. Appears older than stated age. Obese. HEENT: Atraumatic, PERRLA, EOMI, Normocephalic, - - No scleral icterus or injection noted Oral: Moist Mucosa, No Gingival or Mucosal Lesions/ Ulcerations Neck: Supple, No JVD, No Nodes, Trachea Midline Lungs: No rales, Diminished, Rhonchi, Wheezes - Bilateral improves with suctioning Cardiovascular: Regular rate, Regular Rhythm, Normal S1, Normal S2, No murmurs, No rub noted, No Gallop Abdomen: Bowel Sounds Present, Soft, Non Tender, Non-Distended, Obese Extremities: No cyanosis, Clubbing, Edema Skin: No rashes, No breakdown Musculoskeletal: No Tenderness to Palpation of Joints or Extremities Lymphatic: No Cervical, Supraclavicular, or Inguinal Adenopathy Neurological: Cranial nerves II-XII grossly intact, Neuro grossly intact Psych/Mental Status: Normal Affect, Appropriate Microbiology Past 72 Hours 07/29/19 21:00 Mucosa - Nasopharyngeal Respiratory Panel (PCR) - Final 07/30/19 03:30 Stool C. difficile DNA Amplification - Final 07/29/19 22:10 Urine Catheter - Jimenez Streptococcus pneumoniae Antigen (M - Final 07/29/19 22:10 Urine Catheter - Jimenez Legionella Antigen - Final Laboratory Results 07/29/19 21:38: Specimen Type ART, Sample Site L RADIAL, pH 7.23 L, Bicarbonate Actual 27.8 H, POC Total CO2 30, Base Excess 0, O2 Saturation 96, O2 % 50, ABG pCO2 66.5 H, ABG pO2 102 H, Terence Test POS, Respiration Rate 16, O2 Delivery D evice Vent, Vent Mode A-C, Tidal Volume 450, POC PEEP 5, Blood Gas Notified Whom [facility] , Blood Gas Notified Time 213707/29/19 22:00: Magnesium 1.8 07/29/19 22:00: MRSA (PCR) Negative 07/29/19 22:00: Triglycerides 117 07/29/19 22:00: Total Creatine Kinase 280 H 07/29/19 22:00: Troponin I 4.140 H* 07/29/19 22:22: Lactic Acid 2.4 H* 07/30/19 01:30: Troponin I 7.100 H* 07/30/19 01:30: Lactic Acid 2.8 H* 07/30/19 03:35: PT 19.0 H, INR 1.7, APTT 35.6 07/30/19 04:40: WBC 21.5 H, RBC 3.39 L, Hgb 9.9 L, Hct 32.7 L, MCV 96.5, MCH 29.2, MCHC 30.3 L, RDW Std Deviation 47.4 H, RDW Coeff of Kimberlee 13.2, Plt Count 208, MPV 11.1, Immature Gran % (Auto) 0.700, Neut % (Auto) 90.5 H, Lymph % (Auto) 4.1 L, [place] % (Auto) 3.5, Eos % (Auto) 1.0, Baso % (Auto) 0.2, Absolute Neuts (auto) 19.5 H, Absolute Lymphs (auto) 0.87, Nucleated RBC % 0 07/30/19 04:40: Sodium 136, Potassium 4.8, Chloride 102, Carbon Dioxide 25.0, Anion Gap 9, BUN 31 H, Creatinine 1.81 H, Estim Creat Clear Calc 28.90, Est GFR (MDRD) Af Amer 37 L, Est GFR (MDRD) Non-Af 30 L, BUN/Creatinine Ratio 17.1, Glucose 214 H, Calcium 7.5 L 07/30/19 04:40: Troponin I 8.800 H* 07/30/19 04:40: Lactic Acid 1.7 07/30/19 07:00: Troponin I Pending Current Medications Acetaminophen (Tylenol) 650 mg PO Q6H PRN PRN PRN Reason: Pain Score 1-10/Temp > 100.7 F Albuterol Sulfate (Ventolin Aerosols) 2.5 mg INHALATION Q2H PRN PRN PRN Reason: SOB &/OR WHEEZING Albuterol/Ipratropium (Duoneb) 3 ml INHALATION Q4H.RT [facility] Aspirin (Aspirin, Baby) 81 mg PO DAILY@0800 [facility] Atorvastatin Calcium (Lipitor) 40 mg PO QHS [facility] Last Admin: 07/30/19 03:40 Dose: 40 mg Documented by: Chlorhexidine Gluconate () 15 ml PO BID [facility] Last Admin: 07/30/19 08:10 Dose: 15 ml Documented by: Dextrose (D50w Syringe) 0 gm IV X1 PRN; Protocol PRN Reason: Hypoglycemia Glucagon () 1 mg IM .X1 PRN PRN Reason: Hypoglycemia Heparin Sodium (Porcine) (Heparin Na) 0 unit IV UD PRN; Protocol Hydrocortisone Sodium Succinate (Solu-Cortef) 50 mg IV Q8 [facility] Last Admin: 07/30/19 04:02 Dose: 50 mg Documented by: Norepinephrine Bitartrate 8 mg (/ Sodium Chloride) 250 mls @ 9.375 mls/hr CONT INF .[id number] [facility]; Protocol Last Titration: 07/30/19 06:00 Dose: 10 mcg/min, 18.8 mls/hr Documented by: Sodium Chloride () 250 mls @ 15 mls/hr IV .[id number] PRN PRN Reason: Saline Flush Sodium Chloride () 250 mls @ 15 mls/hr IV .[id number] PRN PRN Reason: Additional IVPB Infusion Last Infusion: 07/30/19 04:52 Dose: Infused Documented by: Aztreonam 2 gm/ Sodium (Chloride) 100 mls @ 150 mls/hr IV Q8 TI Stop: 08/05/19 22:01 Last Infusion: 07/30/19 05:39 Dose: Infused Documented by: Levofloxacin (Levaquin Iv) 750 mg in 150 mls @ 100 mls/hr IV Q48 TI Vancomycin IV Pharmacy to Dose (1,500 ea/ Sodium Chloride) 500 mls @ 250 mls/hr IV Q12 PRN; Protocol Fentanyl () 100 mls @ 2.5 mls/hr IV UD [facility]; Protocol Last Titration: 07/30/19 06:00 Dose: 25 mcg/hr, 2.5 mls/hr Documented by: Propofol (Diprivan) 1,000 mg in 100 mls @ 5.622 mls/hr CONT INF .Q12H [facility]; Protocol Last Titration: 07/30/19 06:00 Dose: 15 mcg/kg/min, 8.4 mls/hr Documented by: Vasopressin 20 units/ Sodium (Chloride) 25 mls @ 3 mls/hr IV .[id number] TI Last Infusion: 07/30/19 06:05 Dose: 0.04 units/min, 3 mls/hr Documented by: Pantoprazole Sodium 40 mg/ (Sodium Chloride) 110 mls @ 330 mls/hr IV Q24 TI Heparin Sodium/Dextrose () 25,000 units in 250 mls @ 14 mls/hr IV .[id number] [facility]; Protocol Last Titration: 07/30/19 06:00 Dose: 1,400 units/hr, 14 mls/hr Documented by: Sodium Chloride () 1,000 mls @ 75 mls/hr IV .[id number] TI Last Infusion: 07/30/19 06:00 Dose: 75 mls/hr Documented by: Vancomycin HCl 1,250 mg/ (Sodium Chloride) 275 mls @ 167 mls/hr IV Q24H TI Ondansetron HCl (Zofran) 4 mg IV Q8H PRN PRN PRN Reason: NAUSEA/VOMITING Sodium Chloride () 10 - 40 ml IV UD PRN PRN Reason: Multilumen/Hoffman Flush Last Admin: 07/30/19 04:52 Dose: 40 ml Documented by: Sodium Chloride (0.9% Nacl (Sterile) Posiflush) 10 - 40 ml IV UD PRN PRN Reason: Port access or dressing change Sodium Chloride () 10 - 40 ml IV UD PRN PRN Reason: SALINE FLUSH Last Admin: 07/30/19 08:10 Dose: 20 ml Documented by: Clinical Impression(s) from Imaging Studies Chest X-Ray 07/29/19 21:40 IMPRESSION: No acute disease status post OG tube and multiple line placement Electronically Signed: Kris Boggs MD at 21:58 EDT , Service support , Assessment/Plan Active and Suspected Problems (Last Reviewed 07/29/19 @ 20:[address] Feliberto Rahman MD) Pneumonia (Suspected) Septic shock (Acute) Respiratory arrest before cardiac arrest (Acute) Acute kidney injury (Acute) Non-ST elevated myocardial infarction (Acute) RECOMMENDATIONS: 1. Obtain echocardiogram 2. Continue troponin until peaked 3. Wean pressors as tolerated. Map greater than 65 4. Spontaneous breathing and awakening trials per protocol 5. Continue empiric antibiotics until cultures resulted 6. Follow-up on outpatient COVID testing 7. Okay to start tube feeds from my perspective IMPRESSIONS: 1. Acute on chronic combined respiratory failure secondary to presumed COPD exacerbation secondary to pneumonia versus COVID-19 Unclear etiology of initial respiratory arrest. History is very limited at this time. Patient may have a viral etiology for COPD exacerbation. Given advanced lung disease, infiltrates may not be present on initial imaging. Patient does have significant secretions suggesting a COPD exacerbation. Cultures are currently pending. Agree with empiric antibiotics until culture data can be found. Will need to follow-up on outpatient COVID testing. 2. Non-ST elevation MD following cardiopulmonary arrest/shock Previous echocardiogram is dated, but showed normal function previously. Patient has had a significant elevation in troponin to 8.8. Would monitor until peaked. Repeat echocardiogram for evaluation of focal wall motion abnormality. Patient does appear to be in shock at this time and it is unclear if this is secondary to septic shock from pneumonia versus cardiogenic shock. Patient is currently on aspirin and systemic anticoagulation. 3. Acute kidney injury secondary to #1 and #2 Medical suspicion for prerenal etiology secondary to previous problems. No indication for renal replacement therapy at this time. We will continue to monitor closely. 4. Possible anoxic brain injury Patient with extensive resuscitation time at outside facility. Unclear if patient truly had nonperfusion for that long as she does appear to be following commands appropriately. Cannot exclude memory issues, but patient is not acting like significant anoxic injury at this time. 5. History of noncompliance/obesity/AISSATOU Complicates care, management, recovery and prognosis. No BiPAP required as patient is currently intubated. Okay to start tube feeds. Patient is on systemic anticoagulation. TIME: 45 minutes of critical care time spent addressing patient's respiratory failure, non-ST elevation MD, acute kidney injury, review of all data and collaboration with care team (7 AM to 8:40 AM) 9xxxx: [phone] Critical care first hour
[2019-07-30] MEDS: Famotidine 200 MG/20 ML MDV 20 MG in 0.9% Normal Saline (Pres. free 8 ML 300 MG IV ×2 (10:28→21:19)
[2019-07-30] MEDS: levoFLOXacin IV 750 MG/150 ML BAG 100 MG IV (10:50)
[2019-07-30 11:09] LABS: Partial Thromboplast Time 87.9 Seconds (24.1-36.2)
--- NOTE | 2019-07-30 11:52 | NT.THERAPY_ITS ---
Nutrition Therapy Report - History Nutrition Services has been consulted to:: Manage enteral nutrition Current diet / nutrition support order:: NPO - Anthropometric Measurements Height:: 5 ft 4 in Weight:: 93.7 kg Body Mass Index (BMI):: 35.4 - Relevant Labs Relevant Labs:: WBC 21.5 K/mm3 (4.4-11.0) H 07/30/19 04:40 RBC 3.39 M/mm3 (4.2-5.4) L 07/30/19 04:40 Hgb 9.9 g/dL (12.0-15.0) L 07/30/19 04:40 Hct 32.7 % (37-47) L 07/30/19 04:40 MCHC 30.3 g/dL (32-36) L 07/30/19 04:40 RDW Std Deviation 47.4 fl (35.1-43.9) H 07/30/19 04:40 Neut % (Auto) 90.5 % (47-70) H 07/30/19 04:40 Lymph % (Auto) 4.1 % (19-41) L 07/30/19 04:40 Absolute Neuts (auto) 19.5 X10^3/uL (2.0-7.7) H 07/30/19 04:40 PT 19.0 SECONDS (11.7-14.9) H 07/30/19 03:35 APTT 87.9 Seconds (24.1-36.2) H 07/30/19 10:10 BUN 31 mg/dL (7-18) H 07/30/19 04:40 Creatinine 1.81 mg/dL (0.55-1.02) H 07/30/19 04:40 Est GFR (MDRD) Af Amer 37 mL/min (>60) L 07/30/19 04:40 Est GFR (MDRD) Non-Af 30 mL/min (>60) L 07/30/19 04:40 Glucose 214 mg/dL (74-106) H 07/30/19 04:40 Lactic Acid 2.8 mmol/L (0.4-1.9) H* 07/30/19 01:30 Calcium 7.5 mg/dL (8.5-10.1) L 07/30/19 04:40 Total Creatine Kinase 280 U/L (26-192) H 07/29/19 22:00 Troponin I 10.700 ng/mL (<0.045) H* 07/30/19 08:00 - Assessment Food / Nutrition-Related History:: Discussed in ICU rounds. Pt currently intubated, in isolation for pending COVID-19 testing. Currently w/ BLE non- pitting edema. No wt hx available in EMR. Per rounds, ok to start tube feeds today. - Nutrition Diagnosis Problem / Etiology / Signs & Symptoms (PES):: Inadequate oral intake r/t intubation as evidenced by no PO intake since admission Evidence of Malnutrition Exists:: No - Nutrition Intervention Nutrition Prescription:: [id number] calories/day, 100-112 g protein/day - Food / Nutrient Delivery Interventions Summary of nutrition intervention:: Will order enteral nutrition support. Nutrition support ordered as / adjusted to:: Vital AF 1.2 at goal rate of 55mL/hour w/ 100mL H2O flush every 4 hours to provide 1584 calories, 99 g protein, and 1670mL total fluid/day. Would start at 20mL/hour and increase by 10mL every 8 to 12 hours as pt tolerates until goal rate achieved. Nutrition education provided?: No - MNT Monitoring Further MNT monitoring and evaluation required?: Yes MNT Follow-up in:: 1-2 days
[2019-07-30] MEDS: 0.9% Normal Saline 1,000 ML 999 ML IV ×2 (12:20→18:45)
--- NOTE | 2019-07-30 12:41 | PN_ITS ---
Patient Problems: Active and Suspected Problems (Last Reviewed 07/29/19 @ 20:[address] Feliberto Rahman MD) Pneumonia (Suspected) Septic shock (Acute) Respiratory arrest before cardiac arrest (Acute) Acute kidney injury (Acute) Non-ST elevated myocardial infarction (Acute) Reason for Visit: shock Subjective: Remains on vent. Following cmds. Objective: Decreased FiO2. Vasopressin weaned off. Still on norepi. Vitals/I&O's: Vital Signs Temp Pulse Resp BP Pulse Ox 36.1 C L 88 17 148/62 H 96 07/30/19 08:00 07/30/19 11:00 07/30/19 11:00 07/30/19 11:00 07/30/19 11:00 Oxygen Flow Rate (L/min) 40 Oxygen Delivery Method Mechanical Ventilator Weight: 93.7 kg Body Mass Index (BMI) 35.4 Intake and Output for Last 24 Hours 07/28/19 07/29/19 07/30/19 23:59 23:59 23:59 Intake Total 270.34 / 288.02 1659.53 / 1659.53 Output Total 75 / 75 75 / 75 Balance 195.34 / 213.02 1584.53 / 1584.53 General: No apparent distress HEENT: Atraumatic, Normocephalic Oral: - - ETT and OG in place Neck: No Nodes, Trachea Midline Lungs: Normal air movement, - - coarse breath sounds anteriorly Cardiovascular: Regular rate, Regular Rhythm, Normal S1, Normal S2 Abdomen: Bowel Sounds Present, Soft, Non Tender, Non-Distended, No Hepato-sple nomegaly Extremities: No edema, No Calf Tenderness Neurological: - - no clonus Psych/Mental Status: Normal Affect, Appropriate Microbiology Past 72 Hours 07/29/19 Unknown Sputum, Induced/Lukens Gram Stain - Final 07/29/19 21:00 Mucosa - Nasopharyngeal Respiratory Panel (PCR) - Final 07/30/19 03:30 Stool C. difficile DNA Amplification - Final 07/29/19 22:10 Urine Catheter - Jimenez Streptococcus pneumoniae Antigen (M - Final 07/29/19 22:10 Urine Catheter - Jimenez Legionella Antigen - Final Laboratory Results 07/29/19 21:38: Specimen Type ART, Sample Site L RADIAL, pH 7.23 L, Bicarbonate Actual 27.8 H, POC Total CO2 30, Base Excess 0, O2 Saturation 96, O2 % 50, ABG pCO2 66.5 H, ABG pO2 102 H, Terence Test POS, Respiration Rate 16, O2 Delivery Device Vent, Vent Mode A-C, Tidal Volume 450, POC PEEP 5, Blood Gas Notified Whom SHARA DENNIS, Blood Gas Notified Time 213707/29/19 22:00: Magnesium 1.8 07/29/19 22:00: MRSA (PCR) Negative 07/29/19 22:00: Triglycerides 117 07/29/19 22:00: Total Creatine Kinase 280 H 07/29/19 22:00: Troponin I 4.140 H* 07/29/19 22:22: Lactic Acid 2.4 H* 07/30/19 01:30: Troponin I 7.100 H* 07/30/19 01:30: Lactic Acid 2.8 H* 07/30/19 03:35: PT 19.0 H, INR 1.7, APTT 35.6 07/30/19 04:40: WBC 21.5 H, RBC 3.39 L, Hgb 9.9 L, Hct 32.7 L, MCV 96.5, MCH 29.2, MCHC 30.3 L, RDW Std Deviation 47.4 H, RDW Coeff of Kimberlee 13.2, Plt Count 208, MPV 11.1, Immature Gran % (Auto) 0.700, Neut % (Auto) 90.5 H, Lymph % (Auto) 4.1 L, [place] % (Auto) 3.5, Eos % (Auto) 1.0, Baso % (Auto) 0.2, Absolute Neuts (auto) 19.5 H, Absolute Lymphs (auto) 0.87, Nucleated RBC % 0 07/30/19 04:40: Sodium 136, Potassium 4.8, Chloride 102, Carbon Dioxide 25.0, Anion Gap 9, BUN 31 H, Creatinine 1.81 H, Estim Creat Clear Calc 28.90, Est GFR (MDRD) Af Amer 37 L, Est GFR (MDRD) Non-Af 30 L, BUN/Creatinine Ratio 17.1, Glucose 214 H, Calcium 7.5 L 07/30/19 04:40: Troponin I 8.800 H* 07/30/19 04:40: Lactic Acid 1.7 07/30/19 08:00: Troponin I 10.700 H* 07/30/19 10:10: APTT 87.9 H 07/30/19 11:50: Troponin I Pending Current Medications Acetaminophen (Tylenol) 650 mg PO Q6H PRN PRN PRN Reason: Pain Score 1-10/Temp > 100.7 F Albuterol Sulfate (Ventolin Aerosols) 2.5 mg INHALATION Q2H PRN PRN PRN Reason: SOB &/OR WHEEZING Albuterol/Ipratropium (Duoneb) 3 ml INHALATION Q4H.RT [facility] Last Admin: 07/30/19 11:00 Dose: 3 ml Documented by: Aspirin (Aspirin, Baby) 81 mg PO DAILY@0800 [facility] Atorvastatin Calcium (Lipitor) 40 mg PO QHS [facility] Last Admin: 07/30/19 03:40 Dose: 40 mg Documented by: Chlorhexidine Gluconate () 15 ml PO BID [facility] Last Admin: 07/30/19 08:10 Dose: 15 ml Documented by: Dextrose (D50w Syringe) 0 gm IV X1 PRN; Protocol PRN Reason: Hypoglycemia Glucagon () 1 mg IM .X1 PRN PRN Reason: Hypoglycemia Heparin Sodium (Porcine) (Heparin Na) 0 unit IV UD PRN; Protocol Hydrocortisone Sodium Succinate (Solu-Cortef) 50 mg IV Q8 [facility] Last Admin: 07/30/19 04:02 Dose: 50 mg Documented by: Norepinephrine Bitartrate 8 mg (/ Sodium Chloride) 250 mls @ 9.375 mls/hr CONT INF .[id number] [facility]; Protocol Last Titration: 07/30/19 11:00 Dose: 15 mcg/min, 28.1 mls/hr Documented by: Sodium Chloride () 250 mls @ 15 mls/hr IV .[id number] PRN PRN Reason: Saline Flush Sodium Chloride () 250 mls @ 15 mls/hr IV .[id number] PRN PRN Reason: Additional IVPB Infusion Last Infusion: 07/30/19 04:52 Dose: Infused Documented by: Aztreonam 2 gm/ Sodium (Chloride) 100 mls @ 150 mls/hr IV Q8 [facility] Stop: 08/05/19 22:01 Last Infusion: 07/30/19 05:39 Dose: Infused Documented by: Levofloxacin (Levaquin Iv) 750 mg in 150 mls @ 100 mls/hr IV Q48 TI Last Admin: 07/30/19 10:50 Dose: 100 mls/hr Documented by: Vancomycin IV Pharmacy to Dose (1,500 ea/ Sodium Chloride) 500 mls @ 250 mls/hr IV Q12 PRN; Protocol Fentanyl () 100 mls @ 2.5 mls/hr IV UD TI; Protocol Last Titration: 07/30/19 10:00 Dose: 25 mcg/hr, 2.5 mls/hr Documented by: Propofol (Diprivan) 1,000 mg in 100 mls @ 5.622 mls/hr CONT INF .Q12H TI; Protocol Last Admin: 07/30/19 10:00 Dose: 15 mcg/kg/min, 8.4 mls/hr Documented by: Heparin Sodium/Dextrose () 25,000 units in 250 mls @ 14 mls/hr IV .[id number] TI; Protocol Last Titration: 07/30/19 12:00 Dose: 1,300 units/hr, 13 mls/hr Documented by: Sodium Chloride () 1,000 mls @ 75 mls/hr IV .[id number] TI Last Infusion: 07/30/19 10:50 Dose: 0 mls/hr Documented by: Vancomycin HCl 1,250 mg/ (Sodium Chloride) 275 mls @ 167 mls/hr IV Q24H TI Famotidine 20 mg/ Sodium (Chloride) 10 mls @ 300 mls/hr IV Q12 TI Last Infusion: 07/30/19 10:30 Dose: Infused Documented by: Enteral Nutritional Formula (Vital Af 1.2 Vickey Liquid) 1,000 mls @ 55 mls/hr GT .[id number] TI Sodium Chloride () 1,000 mls @ 999 mls/hr IV .Q1H1M ONE Stop: 07/30/19 13:08 Ondansetron HCl (Zofran) 4 mg IV Q8H PRN PRN PRN Reason: NAUSEA/VOMITING Sodium Chloride () 10 - 40 ml IV UD PRN PRN Reason: Multilumen/Hoffman Flush Last Admin: 07/30/19 10:28 Dose: 10 ml Documented by: Sodium Chloride (0.9% Nacl (Sterile) Posiflush) 10 - 40 ml IV UD PRN PRN Reason: Port access or dressing change Sodium Chloride () 10 - 40 ml IV UD PRN PRN Reason: SALINE FLUSH Last Admin: 07/30/19 08:10 Dose: 20 ml Documented by: STROKE Vital Signs/Narrative: Vital Signs Pulse Resp BP Pulse Ox 07/30/19 11:00 94 16 148/62 H 96 07/30/19 10:58 85 18 100 07/30/19 10:15 90 105/69 07/30/19 10:00 79 18 112/42 L 95 07/30/19 09:45 79 119/36 L 07/30/19 09:30 79 103/50 L 07/30/19 09:23 78 18 98 07/30/19 09:15 76 107/31 L 07/30/19 09:00 74 18 123/41 H 95 07/30/19 08:45 73 16 119/51 L 95 Medical Necessity - Tobacco Use Smoking Status: Former smoker Assessment/Plan All Active Problems (Last Reviewed 07/29/19 @ 20:[address] Feliberto Rahman MD) Septic shock (Acute) Respiratory arrest before cardiac arrest (Acute) Acute kidney injury (Acute) Non-ST elevated myocardial infarction (Acute) 1. septic shock: etiology unclear. On broad spectrum antibiotics. Follow up cultures. Etiology could be pneumonia, though CXR unremarkable, v COVID-19 v other. On hydrocortisone and norepi. 2. acute hypoxic respiratory failure: 2/2 AECOPD +/- pneumonia/COVID-19. On vent with Decreased FiO2. 3. cardiopulmonary arrest: Vtach to PEA then asystole before resumption of no rmal sinus. Echo shows EF of 65% 4. KEITH: unclear etiology. ATN v prerenal. monitor. 5. NSTEMI: may be due CPA. On ASA, heparin gtt. 6. VTE prophylaxis: anticoagulated. Inpatient E&M: [id number] [facility] L3
[2019-07-30] MEDS: Propofol 10MG/Ml 1,000 MG/100 ML Bottle 14.1 MG CONT INF ×2 (14:30→21:18)
--- NOTE | 2019-07-30 14:51 | CASEMGMT ---
SUE BARTON assessment: Phone assessment completed with pt's at this time d/t pt still intubated at this time for initial transition planning/care coordination assessment. SUE BARTON introduced self and role at [facility], voices understanding and consents to assessment at this time. answers all questions appropriately at this time. Care providers, pharmacy, and demographics verified at this time. Presentation: Direct admit from [facility] for Respiratory failure from pnuemonia Admitting dx: Septic shock PCP: Belia Specialists: gricelda Torres Preferred Pharmacy: [facility] Insurance: [place]/MCR A/B Prescription Benefit: yes Living Will/HPOA: is not aware that pt has LW/HPOA and is aware that there is nothing on file at [facility] at this time, voices understanding. LNOK: Simon Dacosta, Living Arrangements: Pt lives with on main level of 2 story home and states that pt was previously independent with ADL's. did say that he would 'stay close' when pt is showering for support if needed. Transportation: Per , pt drives self and states no transportation concerns at this time. DME/HHC: Pt has the following DME: walker(does not use), grab bars, shower chair, 4liters continuous home oxygen and cpap that were set up through Hospice. Per , pt has been on hospice since 12/2018 thru [facility] and was on palliative prior to that but pt revoked Hospice to go to [facility] and is unsure what pt's plan will be at discharge. Pt has never had HHC or been to SNF in the past. is unsure of plan for pt at this time. Pt is on disability. Per , pt does not smoke cigarettes but does occasionally 'have a beer.' states no further concerns/needs at this time. CM to follow pt, PT/OT evals, and for any further discharge planning/needs. Advised to ask for CM if any further questions/concerns/needs arise, voices understanding. Pt Goal: Unknown Plan: TBD [place] SUE BARTON
[2019-07-30] MEDS: fentaNYL drip 100 ML 10 MCG IV (16:30)
[2019-07-30] MEDS: Vital AF 1.2 Cal Liquid 1,000 ML 55 ML GT (17:00)
[2019-07-30 18:04] LABS: Partial Thromboplast Time 97.1 Seconds (24.1-36.2)
[2019-07-30] MEDS: HEPARIN/D5w 25,000 UNITS 25,000 UNITS/250 ML IV.SOLN. 11 UNITS IV (19:24)
[2019-07-31] VITALS (60 sets, daily range): BP systolic 78–138; BP diastolic 45–91; PULSE 80–109; RESP 8–22; TEMP 36.1–36.8; O2SAT 88–98
[2019-07-31 00:03] LABS: Partial Thromboplast Time 79.3 Seconds (24.1-36.2)
[2019-07-31 00:41] LABS: Bedside Glucose 173 mg/dL (70-110)
[2019-07-31] MEDS: Propofol 10MG/Ml 1,000 MG/100 ML Bottle 14.1 MG CONT INF (01:30)
[2019-07-31] MEDS: Ipratropium/Albuterol Sulfate 3 ML AMPUL.NEB INHALATION ×6 (02:25→22:30)
[2019-07-31] MEDS: fentaNYL drip 100 ML 10 MCG IV ×2 (02:40→17:00)
[2019-07-31] MEDS: Hydrocortisone Sod Succinate 100 MG/2 ML Vial 50 MG IV (05:04)
[2019-07-31 05:16] LABS: Absolute Lymphocyte Count 1.52 X10^3/uL (0.83-4.51); Absolute Neutrophil Count 16.8 X10^3/uL (2.0-7.7); Basophil# 0.03 X10^3/uL; Basophil% 0.2 % (0-1); Eosinophil# 0.15 X10^3/uL; Eosinophils% 0.8 % (0-5); Hemoglobin 8.9 g/dL (12.0-15.0); Lymphocyte # 1.52 X10^3/ul (4.0); Lymphocyte % 7.9 % (19-41); Mean Corp Hgb Conc 30.7 g/dL (32-36); Mean Corpuscular Hgb 29.2 pg (27.0-32.0); Mean Corpuscular Volume 95.1 fL (81-99); Mean Platelet Vol. 10.5 fl (6.2-12.0); Monocyte# 0.61 X10^3/uL; Monocyte% 3.2 % (0-10); NRBC Flagged by Analyzer 0.1 % (0-5); Neutrophil # 16.76 X10^3/uL (2.7-7.7); Neutrophil % 87.2 % (47-70); Platelet Count 174 K/mm3 (150-450); RBC Distribution Width CV 13.7 % (11.6-14.6); RBC Distribution Width SD 47.4 fl (35.1-43.9); Red Blood Count 3.05 M/mm3 (4.2-5.4); White Blood Count 19.2 K/mm3 (4.4-11.0)
[2019-07-31 05:37] LABS: Anion Gap 8 (5-15); BUN 49 mg/dL (7-18); BUN/Creat Ratio 17.5 RATIO (10-20); Calcium,Total 7.4 mg/dL (8.5-10.1); Chloride 106 mmol/L (98-107); EST Glomerular Filtration Rate 18 mL/min (>60); Est Glom Filt Rate - Afr Amer 22 mL/min (>60); Estimated Creatinine Clearance 18.68 ml/min; Glucose 208 mg/dL (74-106); Magnesium 1.6 mg/dL (1.6-2.6); Partial Thromboplast Time 74.1 Seconds (24.1-36.2); Phosphorus 3.6 mg/dL (2.5-4.9); Potassium 4.6 mmol/L (3.5-5.1); Sodium Level 137 mmol/L (136-145)
--- NOTE | 2019-07-31 07:40 | PCM.PN.INT ---
Subjective: Patient did well overnight. Patient was able to be taken off of Levophed. Patient was able to tolerate approximately 20 minutes of spontaneous breathing trial before becoming hypoxic and tachypneic. Patient has had significant decrease in urine output that is not been responsive to fluid boluses. Desmond called overnight and COVID was still pending. Patient reportedly was negative this morning per nursing for COVID. General: Alert, Cooperative, No apparent distress, - - Follows commands. Fair vent synchrony initially, but is improving with sedation HEENT: Atraumatic, PERRLA, EOMI, Normocephalic, - - No scleral icterus or injection noted Oral: Moist Mucosa, No Gingival or Mucosal Lesions/ Ulcerations Neck: Supple, No JVD, No Nodes, Trachea Midline Lungs: No rhonchi, No rales, Diminished, Wheezes, - - Symmetric expansion. No dullness to percussion. Cardiovascular: Regular rate, Regular Rhythm, Normal S1, Normal S2, No murmurs, No rub noted, No Gallop Abdomen: Bowel Sounds Present, Soft, Non Tender, Non-Distended, Obese Extremities: No cyanosis, Clubbing, Edema Skin: - - No change compared to previous Musculoskeletal: No Tenderness to Palpation of Joints or Extremities Lymphatic: No Cervical, Supraclavicular, or Inguinal Adenopathy Neurological: Cranial nerves II-XII grossly intact, Neuro grossly intact, Motor Exam 5/5 strength throughout Psych/Mental Status: Anxious, Restless - On spontaneous breathing trial Vital Signs Temp Pulse Resp BP Pulse Ox 36.8 C 102 H 15 102/65 94 07/31/19 04:00 07/31/19 06:53 07/31/19 06:53 07/31/19 06:00 07/31/19 06:00 Oxygen Flow Rate (L/min) 40 Oxygen Delivery Method Mechanical Ventilator Weight: 98.3 kg Body Mass Index (BMI) 35.4 Intake and Output for Last 24 Hours 07/29/19 07/30/19 07/31/19 23:59 23:59 23:59 Intake Total 270.34 / 288.02 6021.50 / 6310.83 1354.98 / 1354.98 Output Total 75 / 75 275 / 275 50 / 50 Balance 195.34 / 213.02 5746.50 / 6035.83 1304.98 / 1304.98 Labs (Last 48 Hours) 07/29/19 07/29/19 07/29/19 21:38 22:00 22:00 WBC RBC Hgb Hct MCV MCH MCHC RDW Std Deviation RDW Coeff of Kimberlee Plt Count MPV Immature Gran % (Auto) Neut % (Auto) Lymph % (Auto) Dunn % (Auto) Eos % (Auto) Baso % (Auto) Absolute Neuts (auto) Absolute Lymphs (auto) Nucleated RBC % PT INR APTT Specimen Type ART Sample Site L RADIAL pH 7.23 L Bicarbonate Actual 27.8 H POC Total CO2 30 Base Excess 0 O2 Saturation 96 O2 % 50 ABG pCO2 66.5 H ABG pO2 102 H Terence Test POS Respiration Rate 16 O2 Delivery Device Vent Vent Mode A-C Tidal Volume 450 POC PEEP 5 Blood Gas Notified Whom [facility] Blood Gas Notified Time 2138 Sodium Potassium Chloride Carbon Dioxide Anion Gap BUN Creatinine Estim Creat Clear Calc Est GFR (MDRD) Af Amer Est GFR (MDRD) Non-Af BUN/Creatinine Ratio Glucose Lactic Acid Calcium Phosphorus Magnesium 1.8 Total Creatine Kinase Troponin I Triglycerides MRSA (PCR) Negative POC Glucose 07/29/19 07/29/19 07/29/19 22:00 22:00 22:00 WBC RBC Hgb Hct MCV MCH MCHC RDW Std Deviation RDW Coeff of Kimberlee Plt Count MPV Immature Gran % (Auto) Neut % (Auto) Lymph % (Auto) Dunn % (Auto) Eos % (Auto) Baso % (Auto) Absolute Neuts (auto) Absolute Lymphs (auto) Nucleated RBC % PT INR APTT Specimen Type Sample Site pH Bicarbonate Actual POC Total CO2 Base Excess O2 Saturation O2 % ABG pCO2 ABG pO2 Terence Test Respiration Rate O2 Delivery Device Vent Mode Tidal Volume POC PEEP Blood Gas Notified Whom Blood Gas Notified Time Sodium Potassium Chloride Carbon Dioxide Anion Gap BUN Creatinine Estim Creat Clear Calc Est GFR (MDRD) Af Amer Est GFR (MDRD) Non-Af BUN/Creatinine Ratio Glucose Lactic Acid Calcium Phosphorus Magnesium Total Creatine Kinase 280 H Troponin I 4.140 H* Triglycerides 117 MRSA (PCR) POC Glucose 07/29/19 07/30/19 07/30/19 22:22 01:30 01:30 WBC RBC Hgb Hct MCV MCH MCHC RDW Std Deviation RDW Coeff of Kimberlee Plt Count MPV Immature Gran % (Auto) Neut % (Auto) Lymph % (Auto) Dunn % (Auto) Eos % (Auto) Baso % (Auto) Absolute Neuts (auto) Absolute Lymphs (auto) Nucleated RBC % PT INR APTT Specimen Type Sample Site pH Bicarbonate Actual POC Total CO2 Base Excess O2 Saturation O2 % ABG pCO2 ABG pO2 Terence Test Respiration Rate O2 Delivery Device Vent Mode Tidal Volume POC PEEP Blood Gas Notified Whom Blood Gas Notified Time Sodium Potassium Chloride Carbon Dioxide Anion Gap BUN Creatinine Estim Creat Clear Calc Est GFR (MDRD) Af Amer Est GFR (MDRD) Non-Af BUN/Creatinine Ratio Glucose Lactic Acid 2.4 H* 2.8 H* Calcium Phosphorus Magnesium Total Creatine Kinase Troponin I 7.100 H* Triglycerides MRSA (PCR) POC Glucose 07/30/19 07/30/19 07/30/19 03:35 04:40 04:40 WBC 21.5 H RBC 3.39 L Hgb 9.9 L Hct 32.7 L MCV 96.5 MCH 29.2 MCHC 30.3 L RDW Std Deviation 47.4 H RDW Coeff of Kimberlee 13.2 Plt Count 208 MPV 11.1 Immature Gran % (Auto) 0.700 Neut % (Auto) 90.5 H Lymph % (Auto) 4.1 L Dunn % (Auto) 3.5 Eos % (Auto) 1.0 Baso % (Auto) 0.2 Absolute Neuts (auto) 19.5 H Absolute Lymphs (auto) 0.87 Nucleated RBC % 0 PT 19.0 H INR 1.7 APTT 35.6 Specimen Type Sample Site pH Bicarbonate Actual POC Total CO2 Base Excess O2 Saturation O2 % ABG pCO2 ABG pO2 Terence Test Respiration Rate O2 Delivery Device Vent Mode Tidal Volume POC PEEP Blood Gas Notified Whom Blood Gas Notified Time Sodium 136 Potassium 4.8 Chloride 102 Carbon Dioxide 25.0 Anion Gap 9 BUN 31 H Creatinine 1.81 H Estim Creat Clear Calc 28.90 Est GFR (MDRD) Af Amer 37 L Est GFR (MDRD) Non-Af 30 L BUN/Creatinine Ratio 17.1 Glucose 214 H Lactic Acid Calcium 7.5 L Phosphorus Magnesium Total Creatine Kinase Troponin I Triglycerides MRSA (PCR) POC Glucose 07/30/19 07/30/19 07/30/19 04:40 04:40 08:00 WBC RBC Hgb Hct MCV MCH MCHC RDW Std Deviation RDW Coeff of Kimberlee Plt Count MPV Immature Gran % (Auto) Neut % (Auto) Lymph % (Auto) Dunn % (Auto) Eos % (Auto) Baso % (Auto) Absolute Neuts (auto) Absolute Lymphs (auto) Nucleated RBC % PT INR APTT Specimen Type Sample Site pH Bicarbonate Actual POC Total CO2 Base Excess O2 Saturation O2 % ABG pCO2 ABG pO2 Terence Test Respiration Rate O2 Delivery Device Vent Mode Tidal Volume POC PEEP Blood Gas Notified Whom Blood Gas Notified Time Sodium Potassium Chloride Carbon Dioxide Anion Gap BUN Creatinine Estim Creat Clear Calc Est GFR (MDRD) Af Amer Est GFR (MDRD) Non-Af BUN/Creatinine Ratio Glucose Lactic Acid 1.7 Calcium Phosphorus Magnesium Total Creatine Kinase Troponin I 8.800 H* 10.700 H* Triglycerides MRSA (PCR) POC Glucose 07/30/19 07/30/19 07/30/19 10:10 11:50 17:20 WBC RBC Hgb Hct MCV MCH MCHC RDW Std Deviation RDW Coeff of Kimberlee Plt Count MPV Immature Gran % (Auto) Neut % (Auto) Lymph % (Auto) Dunn % (Auto) Eos % (Auto) Baso % (Auto) Absolute Neuts (auto) Absolute Lymphs (auto) Nucleated RBC % PT INR APTT 87.9 H 97.1 H* Specimen Type Sample Site pH Bicarbonate Actual POC Total CO2 Base Excess O2 Saturation O2 % ABG pCO2 ABG pO2 Terence Test Respiration Rate O2 Delivery Device Vent Mode Tidal Volume POC PEEP Blood Gas Notified Whom Blood Gas Notified Time Sodium Potassium Chloride Carbon Dioxide Anion Gap BUN Creatinine Estim Creat Clear Calc Est GFR (MDRD) Af Amer Est GFR (MDRD) Non-Af BUN/Creatinine Ratio Glucose Lactic Acid Calcium Phosphorus Magnesium Total Creatine Kinase Troponin I 12.500 H* Triglycerides MRSA (PCR) POC Glucose 07/30/19 07/30/19 07/31/19 23:35 23:36 05:10 WBC 19.2 H RBC 3.05 L Hgb 8.9 L Hct 29.0 L MCV 95.1 MCH 29.2 MCHC 30.7 L RDW Std Deviation 47.4 H RDW Coeff of Kimberlee 13.7 Plt Count 174 MPV 10.5 Immature Gran % (Auto) 0.700 Neut % (Auto) 87.2 H Lymph % (Auto) 7.9 L Dunn % (Auto) 3.2 Eos % (Auto) 0.8 Baso % (Auto) 0.2 Absolute Neuts (auto) 16.8 H Absolute Lymphs (auto) 1.52 Nucleated RBC % 0.1 PT INR APTT 79.3 H Specimen Type Sample Site pH Bicarbonate Actual POC Total CO2 Base Excess O2 Saturation O2 % ABG pCO2 ABG pO2 Terence Test Respiration Rate O2 Delivery Device Vent Mode Tidal Volume POC PEEP Blood Gas Notified Whom Blood Gas Notified Time Sodium Potassium Chloride Carbon Dioxide Anion Gap BUN Creatinine Estim Creat Clear Calc Est GFR (MDRD) Af Amer Est GFR (MDRD) Non-Af BUN/Creatinine Ratio Glucose Lactic Acid Calcium Phosphorus Magnesium Total Creatine Kinase Troponin I Triglycerides MRSA (PCR) POC Glucose 173 H 07/31/19 07/31/19 05:10 05:10 WBC RBC Hgb Hct MCV MCH MCHC RDW Std Deviation RDW Coeff of Kimberlee Plt Count MPV Immature Gran % (Auto) Neut % (Auto) Lymph % (Auto) Dunn % (Auto) Eos % (Auto) Baso % (Auto) Absolute Neuts (auto) Absolute Lymphs (auto) Nucleated RBC % PT INR APTT 74.1 H Specimen Type Sample Site pH Bicarbonate Actual POC Total CO2 Base Excess O2 Saturation O2 % ABG pCO2 ABG pO2 Terence Test Respiration Rate O2 Delivery Device Vent Mode Tidal Volume POC PEEP Blood Gas Notified Whom Blood Gas Notified Time Sodium 137 Potassium 4.6 Chloride 106 Carbon Dioxide 23.0 Anion Gap 8 BUN 49 H Creatinine 2.80 H Estim Creat Clear Calc 18.68 Est GFR (MDRD) Af Amer 22 L Est GFR (MDRD) Non-Af 18 L BUN/Creatinine Ratio 17.5 Glucose 208 H Lactic Acid Calcium 7.4 L Phosphorus 3.6 Magnesium 1.6 Total Creatine Kinase Troponin I Triglycerides MRSA (PCR) POC Glucose Microbiology 07/29/19 22:00 Blood Culture (Wb) - Central Line Blood Culture - Preliminary 07/29/19 Unknown Sputum, Induced/Lukens Gram Stain - Final 07/29/19 Unknown Sputum, Induced/Lukens Respiratory Culture - Preliminary Appears to be normal respiratory jasmin. Further studies to follow. 07/29/19 21:00 Mucosa - Nasopharyngeal Respiratory Panel (PCR) - Final 07/30/19 03:30 Stool C. difficile DNA Amplification - Final 07/29/19 22:10 Urine Catheter - Jimenez Streptococcus pneumoniae Antigen (M - Final 07/29/19 22:10 Urine Catheter - Jimenez Legionella Antigen - Final Medical Necessity - Tobacco Use Smoking Status: Former smoker Assessment/Plan All Active Problems (Last Reviewed 07/29/19 @ 20:[address] Feliberto Rahman MD) Septic shock (Acute) Respiratory arrest before cardiac arrest (Acute) Acute kidney injury (Acute) Non-ST elevated myocardial infarction (Acute) RECOMMENDATIONS: 1. Obtain echocardiogram 2. Continue troponin until peaked 3. Wean pressors as tolerated. Map greater than 65 4. Spontaneous breathing and awakening trials per protocol 5. Continue empiric antibiotics until cultures resulted 6. Follow-up on outpatient COVID testing 7. Okay to start tube feeds from my perspective IMPRESSIONS: 1. Acute on chronic combined respiratory failure secondary to presumed COPD exacerbation secondary to pneumonia versus COVID-19 Unclear etiology of initial respiratory arrest. History is very limited at this time. Patient may have a viral etiology for COPD exacerbation, but work-up including COVID have been negative. Given advanced lung disease, infiltrates may not be present on initial imaging. Patient does have significant secretions suggesting a COPD exacerbation. Cultures are currently reporting a possible gram-positive in the blood culture. Agree with empiric antibiotics until culture data can be found. 2. Non-ST elevation NJ following cardiopulmonary arrest/shock Previous echocardiogram is dated, but showed normal function previously. Repeat echocardiogram shows no significant changes. Patient has had a significant elevation in troponin to 12.5. Clinical course would be suggestive of distributive shock secondary to sepsis versus arrest. Patient may need to be seen by cardiology for possible heart catheterization, but would attempt stabilization initially. Patient is currently on aspirin and systemic anticoagulation. 3. Acute kidney injury secondary to #1 and #2 Medical suspicion for prerenal etiology secondary to previous problems. No indication for renal replacement therapy at this time, but with oliguric renal failure and prolonged resuscitation, ATN is suspected. Increasing creatinine is suggestive of complete renal shutdown. Will consult nephrology. Patient may require early hemodialysis. We will continue to monitor closely. 4. Possible anoxic brain injury Patient with extensive resuscitation time at outside facility. Unclear if patient truly had nonperfusion for that long as she does appear to be following commands appropriately. Cannot exclude memory issues, but patient is not acting like significant anoxic injury at this time. 5. History of noncompliance/obesity/AISSATOU Complicates care, management, recovery and prognosis. No BiPAP required as patient is currently intubated. Okay to continue tube feeds. Patient is on systemic anticoagulation. TIME: 38 minutes of critical care time spent addressing patient's respiratory failure, non-ST elevation NJ, acute kidney injury, review of all data and collaboration with care team (5:20 AM to 6:30 AM) [id number]: [id number] Critical care first hour
[2019-07-31] MEDS: Chlorhexidine 15 ML PO ×2 (10:37→21:57)
[2019-07-31] MEDS: Aspirin 81 MG TAB.CHEW PO (10:41)
[2019-07-31] MEDS: Famotidine 200 MG/20 ML MDV 20 MG in 0.9% Normal Saline (Pres. free 8 ML 300 MG IV ×2 (10:41→21:57)
--- NOTE | 2019-07-31 11:01 | PCM.RX.CS ---
Consult Pharmacy has been consulted to manage selected antiobiotic: Vancomycin Type of Consult: Follow-up Suspected Infection: Sepsis Labs: Sodium 137 mmol/L (136-145) 07/31/19 05:10 Potassium 4.6 mmol/L (3.5-5.1) 07/31/19 05:10 Chloride 106 mmol/L (98-107) 07/31/19 05:10 Carbon Dioxide 23.0 mmol/L (21.0-32.0) 07/31/19 05:10 Anion Gap 8 (5-15) 07/31/19 05:10 BUN 49 mg/dL (7-18) H 07/31/19 05:10 Creatinine 2.80 mg/dL (0.55-1.02) H 07/31/19 05:10 Est GFR (MDRD) Af Amer 22 mL/min (>60) L 07/31/19 05:10 Est GFR (MDRD) Non-Af 18 mL/min (>60) L 07/31/19 05:10 BUN/Creatinine Ratio 17.5 RATIO (10-20) 07/31/19 05:10 Glucose 208 mg/dL (74-106) H 07/31/19 05:10 Microbiology: Microbiology 07/29/19 22:00 Blood Culture (Wb) - Central Line Bacteria Detection (PCR) - Final Coag Negative Staph 07/29/19 22:00 Blood Culture (Wb) - Central Line Blood Culture - Preliminary Coag Negative Staph 07/29/19 Unknown Sputum, Induced/Lukens Gram Stain - Final 07/29/19 Unknown Sputum, Induced/Lukens Respiratory Culture - Preliminary Appears to be normal respiratory jasmin. Further studies to follow. 07/29/19 21:00 Mucosa - Nasopharyngeal Respiratory Panel (PCR) - Final 07/30/19 03:30 Stool C. difficile DNA Amplification - Final 07/29/19 22:10 Urine Catheter - Jimenez Streptococcus pneumoniae Antigen (M - Final 07/29/19 22:10 Urine Catheter - Jimenez Legionella Antigen - Final Pharmacy Plan for Drug Dosin/30--pt's SrCr increased from 1.81 to 2.8. pt weight increased from 93kg to 98kg Recommend to d/c Vancomycin and wait on 07/31/19 level for further dosing. Pharmacy Service will continue to monitor and adjust dosing as required.
[2019-07-31] MEDS: Propofol 10MG/Ml 1,000 MG/100 ML Bottle 13.3 MG CONT INF (11:07)
--- NOTE | 2019-07-31 12:11 | PCM.CONS.R ---
Problem List (1) Acute kidney injury Status: Acute Consultation - Renal 07/31/19 PCP/ Referring MD: Requesting physician: [] Primary care physician: Jayden Celaya DO Reason for Consultation:: Acute renal failure - History of Present Illness History of Present Illness: The patient is a 59 year old F known history of end-stage COPD. Apparently she was on home hospice at some point and presented to the hospital with complaints of shortness of breath. She revoked her DNR/DNI status. She went into cardiac arrest in the ER with a 30 to 40-minute arrest time. Rhythm was V. fib, asystole, PEA arrest. Renal consulted for acute renal failure. Creatinine is now up to 2.8. She is essentially anuric since admission. Failed breathing trial. Blood pressure is low, currently on Levophed drip. No prior renal history as per records. Review of systems cannot be obtained since she is intubated. - Allergies Allergies: Allergies acetaminophen [From Tylenol-Codeine #3] Allergy (Intermediate, Verified 10/07/18 13:47) Other - hallucinations bee venom protein (honey bee) Allergy (Intermediate, Verified 10/07/18 13:47) Other - localized hearing codeine [From Tylenol-Codeine #3] Allergy (Intermediate, Verified 10/07/18 13:47) Other - hallucinations aspirin Allergy (Mild, Verified 10/07/18 13:47) Nausea baclofen Allergy (Mild, Verified 10/07/18 13:47) Nausea celecoxib [From Celebrex] Allergy (Mild, Verified 10/07/18 13:47) Nausea rofecoxib [From Vioxx] Allergy (Unknown, Verified 10/07/18 13:47) Unknown ibuprofen [From Advil] Adverse Reaction (Mild, Verified 10/07/18 13:47) Other - tunnel hearing lisinopril Adverse Reaction (Mild, Verified 10/07/18 13:47) Other - woozy - Current Medications Current Medications: Current Medications Acetaminophen (Tylenol) 650 mg PO Q6H PRN PRN PRN Reason: Pain Score 1-10/Temp > 100.7 F Albuterol Sulfate (Ventolin Aerosols) 2.5 mg INHALATION Q2H PRN PRN PRN Reason: SOB &/OR WHEEZING Albuterol/Ipratropium (Duoneb) 3 ml INHALATION Q4H.RT TI Last Admin: 07/31/19 11:22 Dose: 3 ml Documented by: Aspirin (Aspirin, Baby) 81 mg NG DAILY@0800 [facility] Atorvastatin Calcium (Lipitor) 40 mg NG QHS [facility] Chlorhexidine Gluconate () 15 ml PO BID [facility] Last Admin: 07/31/19 10:37 Dose: 15 ml Documented by: Dextrose (D50w Syringe) 0 gm IV X1 PRN; Protocol PRN Reason: Hypoglycemia Glucagon () 1 mg IM .X1 PRN PRN Reason: Hypoglycemia Heparin Sodium (Porcine) (Heparin Na) 0 unit IV UD PRN; Protocol Norepinephrine Bitartrate 8 mg (/ Sodium Chloride) 250 mls @ 9.375 mls/hr CONT INF .[id number] [facility]; Protocol Last Titration: 07/31/19 10:00 Dose: 5 mcg/min, 9.4 mls/hr Documented by: Sodium Chloride () 250 mls @ 15 mls/hr IV .[id number] PRN PRN Reason: Saline Flush Sodium Chloride () 250 mls @ 15 mls/hr IV .[id number] PRN PRN Reason: Additional IVPB Infusion Last Infusion: 07/30/19 04:52 Dose: Infused Documented by: Aztreonam 2 gm/ Sodium (Chloride) 100 mls @ 150 mls/hr IV Q8 [facility] Stop: 08/05/19 22:01 Last Infusion: 07/31/19 06:04 Dose: Infused Documented by: Levofloxacin (Levaquin Iv) 750 mg in 150 mls @ 100 mls/hr IV Q48 [facility] Last Infusion: 07/30/19 12:20 Dose: Infused Documented by: Vancomycin IV Pharmacy to Dose (1,500 ea/ Sodium Chloride) 500 mls @ 250 mls/hr IV Q12 PRN; Protocol Fentanyl () 100 mls @ 2.5 mls/hr IV UD [facility]; Protocol Last Titration: 07/31/19 10:00 Dose: 100 mcg/hr, 10 mls/hr Documented by: Propofol (Diprivan) 1,000 mg in 100 mls @ 5.898 mls/hr CONT INF .Q12H [facility]; Protocol Last Admin: 07/31/19 11:07 Dose: 22.5 mcg/kg/min, 13.3 mls/hr Documented by: Heparin Sodium/Dextrose () 25,000 units in 250 mls @ 14 mls/hr IV .[id number] TI; Protocol Last Titration: 07/31/19 10:00 Dose: 1,100 units/hr, 11 mls/hr Documented by: Sodium Chloride () 1,000 mls @ 75 mls/hr IV .[id number] TI Last Infusion: 07/31/19 08:36 Dose: 75 mls/hr Documented by: Famotidine 20 mg/ Sodium (Chloride) 10 mls @ 300 mls/hr IV Q12 TI Last Infusion: 07/31/19 11:09 Dose: Infused Documented by: Enteral Nutritional Formula (Vital Af 1.2 Vickey Liquid) 1,000 mls @ 55 mls/hr GT .[id number] TI Last Admin: 07/31/19 05:04 Dose: Not Given Documented by: Methylprednisolone (Solu-Medrol) 40 mg IV Q8 TI Ondansetron HCl (Zofran) 4 mg IV Q8H PRN PRN PRN Reason: NAUSEA/VOMITING Sodium Chloride () 10 - 40 ml IV UD PRN PRN Reason: Multilumen/Hoffman Flush Last Admin: 07/30/19 21:19 Dose: 40 ml Documented by: Sodium Chloride (0.9% Nacl (Sterile) Posiflush) 10 - 40 ml IV UD PRN PRN Reason: Port access or dressing change Sodium Chloride () 10 - 40 ml IV UD PRN PRN Reason: SALINE FLUSH Last Admin: 07/30/19 08:10 Dose: 20 ml Documented by: - Past Medical History Past Medical History (Chronic Problems): Chronic Problems (Last Reviewed 07/29/19 @ 20:[address] Feliberto Rahman MD) Acute and chronic respiratory failure ([id number]) (Chronic) Murmur, cardiac (Chronic) AISSATOU (obstructive sleep apnea) (Chronic) AISSATOU treated with BiPAP (Chronic) Chronic respiratory failure with hypoxia (Chronic) Stage 4 very severe COPD by GOLD classification (Chronic) - Social History Smoking Status: Former smoker - Family History Maternal Family History: Family History (Last Reviewed 07/29/19 @ 20:[address] Feliberto Rahman MD) Mother CVA (cerebral vascular accident) Kidney disease Father Diabetes Cancer Brother Heart disease Diabetes Sister Diabetes Review of Systems Unable to obtain accurate/complete ROS d/t: intubated Patient Problems: Active and Suspected Problems (Last Reviewed 07/29/19 @ 20:[address] Feliberto Rahman MD) Pneumonia (Suspected) Septic shock (Acute) Respiratory arrest before cardiac arrest (Acute) Acute kidney injury (Acute) Non-ST elevated myocardial infarction (Acute) - Physical Exam Vitals/I&O's: Vital Signs Temp Pulse Resp BP Pulse Ox 97.3 F L 89 10 L 100/72 95 07/31/19 08:15 07/31/19 10:00 07/31/19 10:00 07/31/19 10:00 07/31/19 10:00 Oxygen Flow Rate (L/min) 40 Oxygen Delivery Method Mechanical Ventilator Weight: 98.3 kg Body Mass Index (BMI) 35.4 Intake and Output for Last 24 Hours 07/29/19 07/30/19 07/31/19 23:59 23:59 23:59 Intake Total 270.34 / 288.02 6021.50 / 6310.83 1696.45 / 1696.45 Output Total 75 / 75 275 / 275 50 / 50 Balance 195.34 / 213.02 5746.50 / 6035.83 1646.45 / 1646.45 HEENT: Atraumatic, PERRLA, EOMI, Normocephalic Neck: Supple, No JVD, Negative Carotid Bruits Lungs: Clear to auscultation, Normal air movement Cardiovascular: Regular rate, No murmurs Abdomen: Bowel Sounds Present, Soft, Non Tender Extremities: No edema, Capillary Refill Less than 3 Seconds Skin: No rashes, No breakdown Musculoskeletal: No Tenderness to Palpation of Joints or Extremities Psych/Mental Status: Appropriate Microbiology Past 72 Hours 07/29/19 22:00 Blood Culture (Wb) - Central Line Bacteria Detection (PCR) - Final Coag Negative Staph 07/29/19 22:00 Blood Culture (Wb) - Central Line Blood Culture - Preliminary Coag Negative Staph 07/29/19 Unknown Sputum, Induced/Lukens Gram Stain - Final 07/29/19 Unknown Sputum, Induced/Lukens Respiratory Culture - Preliminary Appears to be normal respiratory jasmin. Further studies to follow. 07/29/19 21:00 Mucosa - Nasopharyngeal Respiratory Panel (PCR) - Final 07/30/19 03:30 Stool C. difficile DNA Amplification - Final 07/29/19 22:10 Urine Catheter - Jimenez Streptococcus pneumoniae Antigen (M - Final 07/29/19 22:10 Urine Catheter - Jimenez Legionella Antigen - Final Laboratory Results 07/30/19 11:50: Troponin I 12.500 H* 07/30/19 17:20: APTT 97.1 H* 07/30/19 23:35: APTT 79.3 H 07/30/19 23:36: POC Glucose 173 H 07/31/19 05:10: WBC 19.2 H, RBC 3.05 L, Hgb 8.9 L, Hct 29.0 L, MCV 95.1, MCH 29.2, MCHC 30.7 L, RDW Std Deviation 47.4 H, RDW Coeff of Kimberlee 13.7, Plt Count 174, MPV 10.5, Immature Gran % (Auto) 0.700, Neut % (Auto) 87.2 H, Lymph % (Auto) 7.9 L, [place] % (Auto) 3.2, Eos % (Auto) 0.8, Baso % (Auto) 0.2, Absolute Neuts (auto) 16.8 H, Absolute Lymphs (auto) 1.52, Nucleated RBC % 0.1 07/31/19 05:10: Sodium 137, Potassium 4.6, Chloride 106, Carbon Dioxide 23.0, Anion Gap 8, BUN 49 H, Creatinine 2.80 H, Estim Creat Clear Calc 18.68, Est GFR (MDRD) Af Amer 22 L, Est GFR (MDRD) Non-Af 18 L, BUN/Creatinine Ratio 17.5, Glucose 208 H, Calcium 7.4 L, Phosphorus 3.6, Magnesium 1.6 07/31/19 05:10: APTT 74.1 H Current Medications Acetaminophen (Tylenol) 650 mg PO Q6H PRN PRN PRN Reason: Pain Score 1-10/Temp > 100.7 F Albuterol Sulfate (Ventolin Aerosols) 2.5 mg INHALATION Q2H PRN PRN PRN Reason: SOB &/OR WHEEZING Albuterol/Ipratropium (Duoneb) 3 ml INHALATION Q4H.RT TI Last Admin: 07/31/19 11:22 Dose: 3 ml Documented by: Aspirin (Aspirin, Baby) 81 mg NG DAILY@0800 [facility] Atorvastatin Calcium (Lipitor) 40 mg NG QHS [facility] Chlorhexidine Gluconate () 15 ml PO BID [facility] Last Admin: 07/31/19 10:37 Dose: 15 ml Documented by: Dextrose (D50w Syringe) 0 gm IV X1 PRN; Protocol PRN Reason: Hypoglycemia Glucagon () 1 mg IM .X1 PRN PRN Reason: Hypoglycemia Heparin Sodium (Porcine) (Heparin Na) 0 unit IV UD PRN; Protocol Norepinephrine Bitartrate 8 mg (/ Sodium Chloride) 250 mls @ 9.375 mls/hr CONT INF .[id number] [facility]; Protocol Last Titration: 07/31/19 10:00 Dose: 5 mcg/min, 9.4 mls/hr Documented by: Sodium Chloride () 250 mls @ 15 mls/hr IV .[id number] PRN PRN Reason: Saline Flush Sodium Chloride () 250 mls @ 15 mls/hr IV .[id number] PRN PRN Reason: Additional IVPB Infusion Last Infusion: 07/30/19 04:52 Dose: Infused Documented by: Aztreonam 2 gm/ Sodium (Chloride) 100 mls @ 150 mls/hr IV Q8 [facility] Stop: 08/05/19 22:01 Last Infusion: 07/31/19 06:04 Dose: Infused Documented by: Levofloxacin (Levaquin Iv) 750 mg in 150 mls @ 100 mls/hr IV Q48 TI Last Infusion: 07/30/19 12:20 Dose: Infused Documented by: Vancomycin IV Pharmacy to Dose (1,500 ea/ Sodium Chloride) 500 mls @ 250 mls/hr IV Q12 PRN; Protocol Fentanyl () 100 mls @ 2.5 mls/hr IV UD [facility]; Protocol Last Titration: 07/31/19 10:00 Dose: 100 mcg/hr, 10 mls/hr Documented by: Propofol (Diprivan) 1,000 mg in 100 mls @ 5.898 mls/hr CONT INF .Q12H [facility]; Protocol Last Admin: 07/31/19 11:07 Dose: 22.5 mcg/kg/min, 13.3 mls/hr Documented by: Heparin Sodium/Dextrose () 25,000 units in 250 mls @ 14 mls/hr IV .[id number] [facility]; Protocol Last Titration: 07/31/19 10:00 Dose: 1,100 units/hr, 11 mls/hr Documented by: Sodium Chloride () 1,000 mls @ 75 mls/hr IV .[id number] TI Last Infusion: 07/31/19 08:36 Dose: 75 mls/hr Documented by: Famotidine 20 mg/ Sodium (Chloride) 10 mls @ 300 mls/hr IV Q12 TI Last Infusion: 07/31/19 11:09 Dose: Infused Documented by: Enteral Nutritional Formula (Vital Af 1.2 Vickey Liquid) 1,000 mls @ 55 mls/hr GT .[id number] TI Last Admin: 07/31/19 05:04 Dose: Not Given Documented by: Methylprednisolone (Solu-Medrol) 40 mg IV Q8 TI Ondansetron HCl (Zofran) 4 mg IV Q8H PRN PRN PRN Reason: NAUSEA/VOMITING Sodium Chloride () 10 - 40 ml IV UD PRN PRN Reason: Multilumen/Hoffman Flush Last Admin: 07/30/19 21:19 Dose: 40 ml Documented by: Sodium Chloride (0.9% Nacl (Sterile) Posiflush) 10 - 40 ml IV UD PRN PRN Reason: Port access or dressing change Sodium Chloride () 10 - 40 ml IV UD PRN PRN Reason: SALINE FLUSH Last Admin: 07/30/19 08:10 Dose: 20 ml Documented by: Assessment/Plan All Active Problems (Last Reviewed 07/29/19 @ 20:[address] Feliberto Rahman MD) Septic shock (Acute) Respiratory arrest before cardiac arrest (Acute) Acute kidney injury (Acute) Non-ST elevated myocardial infarction (Acute) Acute renal failure. No prior kidney disease as per records. Most likely ATN in the setting of prolonged cardiac arrest. Discussed with staff. She has been anuric since admission. Overnight she made only about 50 cc of urine. Reviewed x-ray, labs. No acute indications for dialysis today but she will most likely need dialysis in the next 1 or 2 days if she remains anuric. Chest x-ray does not show any volume overload. Discussed with Dr. Torres.
--- NOTE | 2019-07-31 12:45 | PCM.PN.HOSP ---
Patient Problems: Active and Suspected Problems (Last Reviewed 07/29/19 @ 20:[address] Feliberto Rahman MD) Pneumonia (Suspected) Septic shock (Acute) Respiratory arrest before cardiac arrest (Acute) Acute kidney injury (Acute) Non-ST elevated myocardial infarction (Acute) Reason for Visit: pneumonia Subjective: Following some commands. Decreased pressor support. Vitals/I&O's: Vital Signs Temp Pulse Resp BP Pulse Ox 36.3 C L 95 18 100/72 95 07/31/19 08:15 07/31/19 12:00 07/31/19 11:22 07/31/19 10:00 07/31/19 11:22 Oxygen Flow Rate (L/min) 40 Oxygen Delivery Method Mechanical Ventilator Weight: 98.3 kg Body Mass Index (BMI) 35.4 Intake and Output for Last 24 Hours 07/29/19 07/30/19 07/31/19 23:59 23:59 23:59 Intake Total 270.34 / 288.02 6021.50 / 6310.83 1696.45 / 1696.45 Output Total 75 / 75 275 / 275 50 / 50 Balance 195.34 / 213.02 5746.50 / 6035.83 1646.45 / 1646.45 HEENT: Atraumatic, Normocephalic Oral: - - intubated sedated Neck: No Nodes, Trachea Midline Lungs: Normal air movement, - - coarse breath sounds anteriorly Cardiovascular: Regular rate, Regular Rhythm, Normal S1, Normal S2, No murmurs Abdomen: Bowel Sounds Present, Soft, Non Tender, Non-Distended, No Hepato-splenomegaly Extremities: No edema, No Calf Tenderness Skin: No rashes, No breakdown Musculoskeletal: No Tenderness to Palpation of Joints or Extremities, No Muscle Wasting Microbiology Past 72 Hours 07/29/19 22:00 Blood Culture (Wb) - Central Line Bacteria Detection (PCR) - Final Coag Negative Staph 07/29/19 22:00 Blood Culture (Wb) - Central Line Blood Culture - Preliminary Coag Negative Staph 07/29/19 Unknown Sputum, Induced/Lukens Gram Stain - Final 07/29/19 Unknown Sputum, Induced/Lukens Respiratory Culture - Preliminary Appears to be normal respiratory jasmin. Further studies to follow. 07/29/19 21:00 Mucosa - Nasopharyngeal Respiratory Panel (PCR) - Final 07/30/19 03:30 Stool C. difficile DNA Amplification - Final 07/29/19 22:10 Urine Catheter - Jimenez Streptococcus pneumoniae Antigen (M - Final 07/29/19 22:10 Urine Catheter - Jimenez Legionella Antigen - Final Laboratory Results 07/30/19 11:50: Troponin I 12.500 H* 07/30/19 17:20: APTT 97.1 H* 07/30/19 23:35: APTT 79.3 H 07/30/19 23:36: POC Glucose 173 H 07/31/19 05:10: WBC 19.2 H, RBC 3.05 L, Hgb 8.9 L, Hct 29.0 L, MCV 95.1, MCH 29.2, MCHC 30.7 L, RDW Std Deviation 47.4 H, RDW Coeff of Kimberlee 13.7, Plt Count 174, MPV 10.5, Immature Gran % (Auto) 0.700, Neut % (Auto) 87.2 H, Lymph % (Auto) 7.9 L, [place] % (Auto) 3.2, Eos % (Auto) 0.8, Baso % (Auto) 0.2, Absolute Neuts (auto) 16.8 H, Absolute Lymphs (auto) 1.52, Nucleated RBC % 0.1 07/31/19 05:10: Sodium 137, Potassium 4.6, Chloride 106, Carbon Dioxide 23.0, Anion Gap 8, BUN 49 H, Creatinine 2.80 H, Estim Creat Clear Calc 18.68, Est GFR (MDRD) Af Amer 22 L, Est GFR (MDRD) Non-Af 18 L, BUN/Creatinine Ratio 17.5, Glucose 208 H, Calcium 7.4 L, Phosphorus 3.6, Magnesium 1.6 07/31/19 05:10: APTT 74.1 H Current Medications Acetaminophen (Tylenol) 650 mg PO Q6H PRN PRN PRN Reason: Pain Score 1-10/Temp > 100.7 F Albuterol Sulfate (Ventolin Aerosols) 2.5 mg INHALATION Q2H PRN PRN PRN Reason: SOB &/OR WHEEZING Albuterol/Ipratropium (Duoneb) 3 ml INHALATION Q4H.RT TI Last Admin: 07/31/19 11:22 Dose: 3 ml Documented by: Aspirin (Aspirin, Baby) 81 mg NG DAILY@0800 [facility] Atorvastatin Calcium (Lipitor) 40 mg NG QHS [facility] Chlorhexidine Gluconate () 15 ml PO BID [facility] Last Admin: 07/31/19 10:37 Dose: 15 ml Documented by: Dextrose (D50w Syringe) 0 gm IV X1 PRN; Protocol PRN Reason: Hypoglycemia Glucagon () 1 mg IM .X1 PRN PRN Reason: Hypoglycemia Heparin Sodium (Porcine) (Heparin Na) 0 unit IV UD PRN; Protocol Norepinephrine Bitartrate 8 mg (/ Sodium Chloride) 250 mls @ 9.375 mls/hr CONT INF .[id number] [facility]; Protocol Last Titration: 07/31/19 10:00 Dose: 5 mcg/min, 9.4 mls/hr Documented by: Sodium Chloride () 250 mls @ 15 mls/hr IV .[id number] PRN PRN Reason: Saline Flush Sodium Chloride () 250 mls @ 15 mls/hr IV .[id number] PRN PRN Reason: Additional IVPB Infusion Last Infusion: 07/30/19 04:52 Dose: Infused Documented by: Aztreonam 2 gm/ Sodium (Chloride) 100 mls @ 150 mls/hr IV Q8 [facility] Stop: 08/05/19 22:01 Last Infusion: 07/31/19 06:04 Dose: Infused Documented by: Levofloxacin (Levaquin Iv) 750 mg in 150 mls @ 100 mls/hr IV Q48 TI Last Infusion: 07/30/19 12:20 Dose: Infused Documented by: Vancomycin IV Pharmacy to Dose (1,500 ea/ Sodium Chloride) 500 mls @ 250 mls/hr IV Q12 PRN; Protocol Fentanyl () 100 mls @ 2.5 mls/hr IV UD [facility]; Protocol Last Titration: 07/31/19 10:00 Dose: 100 mcg/hr, 10 mls/hr Documented by: Propofol (Diprivan) 1,000 mg in 100 mls @ 5.898 mls/hr CONT INF .Q12H [facility]; Protocol Last Admin: 07/31/19 11:07 Dose: 22.5 mcg/kg/min, 13.3 mls/hr Documented by: Heparin Sodium/Dextrose () 25,000 units in 250 mls @ 14 mls/hr IV .[id number] [facility]; Protocol Last Titration: 07/31/19 10:00 Dose: 1,100 units/hr, 11 mls/hr Documented by: Sodium Chloride () 1,000 mls @ 75 mls/hr IV .[id number] TI Last Infusion: 07/31/19 08:36 Dose: 75 mls/hr Documented by: Famotidine 20 mg/ Sodium (Chloride) 10 mls @ 300 mls/hr IV Q12 TI Last Infusion: 07/31/19 11:09 Dose: Infused Documented by: Enteral Nutritional Formula (Vital Af 1.2 Vickey Liquid) 1,000 mls @ 55 mls/hr GT .[id number] TI Last Admin: 07/31/19 05:04 Dose: Not Given Documented by: Methylprednisolone (Solu-Medrol) 40 mg IV Q8 TI Ondansetron HCl (Zofran) 4 mg IV Q8H PRN PRN PRN Reason: NAUSEA/VOMITING Sodium Chloride () 10 - 40 ml IV UD PRN PRN Reason: Multilumen/Hoffman Flush Last Admin: 07/30/19 21:19 Dose: 40 ml Documented by: Sodium Chloride (0.9% Nacl (Sterile) Posiflush) 10 - 40 ml IV UD PRN PRN Reason: Port access or dressing change Sodium Chloride () 10 - 40 ml IV UD PRN PRN Reason: SALINE FLUSH Last Admin: 07/30/19 08:10 Dose: 20 ml Documented by: STROKE Vital Signs/Narrative: Vital Signs Pulse Resp BP Pulse Ox 07/31/19 12:00 95 07/31/19 11:22 97 17 95 07/31/19 10:00 89 10 L 100/72 95 07/31/19 09:49 91 07/31/19 09:30 89 12 104/60 88 07/31/19 09:15 87 13 93/61 93 07/31/19 09:00 95 12 105/56 L 96 07/31/19 08:59 86 14 96 Medical Necessity - Tobacco Use Smoking Status: Former smoker Assessment/Plan All Active Problems (Last Reviewed 07/29/19 @ 20:[address] Feliberto Rahman MD) Septic shock (Acute) Respiratory arrest before cardiac arrest (Acute) Acute kidney injury (Acute) Non-ST elevated myocardial infarction (Acute) 1. septic shock: etiology unclear. On broad spectrum antibiotics. Follow up cultures. Etiology could be pneumonia, though CXR unremarkable, v COVID-19 v other. On hydrocortisone and norepi. COVID-19 negative. 2. acute hypoxic respiratory failure: 2/2 AECOPD +/- pneumonia. On vent 3. cardiopulmonary arrest: Vtach to PEA then asystole before resumption of normal sinus. Echo shows EF of 65% 4. KEITH: unclear etiology. ATN v prerenal. monitor. 5. NSTEMI: may be due CPA. On ASA, heparin gtt. 6. VTE prophylaxis: anticoagulated. Inpatient E&M: 96872 Subs Hosp L2
[2019-07-31] MEDS: 0.9% Normal Saline 1,000 ML 75 ML IV (12:57)
[2019-07-31] MEDS: HEPARIN/D5w 25,000 UNITS 25,000 UNITS/250 ML IV.SOLN. 11 UNITS IV (14:54)
[2019-07-31] MEDS: TITRATION PARAMETER CHANGE 1 EACH IV (14:55)
[2019-07-31] MEDS: Insulin Lispro 100 UNIT/ML INSULN.PEN SC (17:48)
[2019-07-31] MEDS: Bisacodyl 10 MG Suppository RECTAL (17:49)
[2019-07-31] MEDS: Propofol 10MG/Ml 1,000 MG/100 ML Bottle 10.3 MG CONT INF (17:57)
[2019-07-31 18:01] LABS: Bedside Glucose 195 mg/dL (70-110)
[2019-07-31] MEDS: Atorvastatin Calcium 40 MG Tablet NG (21:47)
[2019-07-31] MEDS: Senna Tablet 2 TABLET NG (21:47)
[2019-07-31] MEDS: 0.9% Saline Lock 10 ML Syringe IV (21:57)
[2019-08-01] VITALS (48 sets, daily range): BP systolic 92–145; BP diastolic 47–87; PULSE 77–128; RESP 11–21; TEMP 36.3–37.1; O2SAT 89–96
[2019-08-01] MEDS: Insulin Lispro 100 UNIT/ML INSULN.PEN SC ×3 (00:18→23:27)
[2019-08-01 00:36] LABS: Bedside Glucose 251 mg/dL (70-110)
[2019-08-01] MEDS: 0.9% Normal Saline 1,000 ML 75 ML IV (01:40)
[2019-08-01 02:08] LABS: Vancomycin, Trough Level 30.7 ug/mL (5.0-15.0)
--- NOTE | 2019-08-01 02:50 | PCM.RX.CS ---
Consult Pharmacy has been consulted to manage selected antiobiotic: Vancomycin Type of Consult: Follow-up Suspected Infection: Sepsis Prior Doses of Antibiotics Received/Current Regimen: Medications Discontinued Medications Vancomycin HCl 1,250 mg/ (Sodium Chloride) 275 mls @ 167 mls/hr IV Q24H TI Last Admin: 07/31/19 02:11 Dose: Infused Labs: Sodium 137 mmol/L (136-145) 07/31/19 05:10 Potassium 4.6 mmol/L (3.5-5.1) 07/31/19 05:10 Chloride 106 mmol/L (98-107) 07/31/19 05:10 Carbon Dioxide 23.0 mmol/L (21.0-32.0) 07/31/19 05:10 Anion Gap 8 (5-15) 07/31/19 05:10 BUN 49 mg/dL (7-18) H 07/31/19 05:10 Creatinine 2.80 mg/dL (0.55-1.02) H 07/31/19 05:10 Est GFR (MDRD) Af Amer 22 mL/min (>60) L 07/31/19 05:10 Est GFR (MDRD) Non-Af 18 mL/min (>60) L 07/31/19 05:10 BUN/Creatinine Ratio 17.5 RATIO (10-20) 07/31/19 05:10 Glucose 208 mg/dL (74-106) H 07/31/19 05:10 Vancomycin Trough 30.7 ug/mL (5.0-15.0) H 08/01/19 00:00 Microbiology: Microbiology 07/29/19 22:00 Blood Culture (Wb) - Central Line Bacteria Detection (PCR) - Final Coag Negative Staph 07/29/19 22:00 Blood Culture (Wb) - Central Line Blood Culture - Preliminary Coag Negative Staph 07/29/19 Unknown Sputum, Induced/Lukens Gram Stain - Final 07/29/19 Unknown Sputum, Induced/Lukens Respiratory Culture - Preliminary Appears to be normal respiratory jasmin. Further studies to follow. 07/29/19 21:00 Mucosa - Nasopharyngeal Respiratory Panel (PCR) - Final 07/30/19 03:30 Stool C. difficile DNA Amplification - Final 07/29/19 22:10 Urine Catheter - Jimenez Streptococcus pneumoniae Antigen (M - Final 04/28/20 22:10 Urine Catheter - Jimenez Legionella Antigen - Final Weight used for dosin.3 kg Estimated Creatinine Clearance: 18.7 Goal Trough: 15-20 mcg/mL Pharmacy Plan for Drug Dosing: Due to decreasing kidney function the vancomycin trough level was high (30.7). Anticipating this, the previous order had been stopped. A random vanco level will be drawn 08/02/19 @0000, and continuing orders to be figured from that result. Pharmacy Service will continue to monitor and adjust dosing as required. Follow-Up Labs: Trough Vancomycin - random Labs to be done on [date and time ordered]: 08/02/19 @0000
[2019-08-01] MEDS: fentaNYL drip 100 ML 10 MCG IV (02:51)
[2019-08-01] MEDS: Propofol 10MG/Ml 1,000 MG/100 ML Bottle 7.4 MG CONT INF (02:53)
[2019-08-01] MEDS: Albuterol 2.5 MG/3 ML VIAL.NEB. INHALATION (04:13)
[2019-08-01 04:24] LABS: Anion Gap 9 (5-15); BUN 58 mg/dL (7-18); BUN/Creat Ratio 15.4 RATIO (10-20); Calcium,Total 7.1 mg/dL (8.5-10.1); Chloride 103 mmol/L (98-107); Creatinine, Serum 3.77 mg/dL (0.55-1.02); EST Glomerular Filtration Rate 13 mL/min (>60); Est Glom Filt Rate - Afr Amer 16 mL/min (>60); Estimated Creatinine Clearance 13.87 ml/min; Glucose 239 mg/dL (74-106); Magnesium 1.9 mg/dL (1.6-2.6); Phosphorus 5.2 mg/dL (2.5-4.9); Potassium 5.3 mmol/L (3.5-5.1); Sodium Level 133 mmol/L (136-145)
[2019-08-01 04:31] LABS: Partial Thromboplast Time 70.8 Seconds (24.1-36.2)
[2019-08-01 04:38] LABS: Absolute Neutrophil Count 25.2 X10^3/uL (2.0-7.7); Basophil# 0.07 X10^3/uL; Basophil% 0.3 % (0-1); Eosinophils% 0.4 % (0-5); Hematocrit 30.7 % (37-47); Lymphocyte % 3.7 % (19-41); Mean Corp Hgb Conc 29.3 g/dL (32-36); Mean Corpuscular Hgb 29.3 pg (27.0-32.0); Mean Platelet Vol. 10.9 fl (6.2-12.0); Monocyte# 0.57 X10^3/uL; Monocyte% 2.1 % (0-10); NRBC Flagged by Analyzer 0.1 % (0-5); Neutrophil # 25.18 X10^3/uL (2.7-7.7); Neutrophil % 91.8 % (47-70); POSITIVE DIFFERENTIAL YES; POSITIVE MORPHOLOGY YES; Platelet Count 230 K/mm3 (150-450); RBC Distribution Width CV 13.9 % (11.6-14.6); RBC Distribution Width SD 50.1 fl (35.1-43.9); Red Blood Count 3.07 M/mm3 (4.2-5.4); White Blood Count 27.4 K/mm3 (4.4-11.0)
[2019-08-01 04:51] LABS: Differential Indicated SCAN CRITERIA MET
[2019-08-01 05:41] LABS: Anisocytosis 1+; Hypochromasia 1+; Platelet Estimate ADEQUATE (ADEQ)
[2019-08-01 05:42] LABS: Macrocytosis RARE
[2019-08-01 05:46] LABS: Bedside Glucose 225 mg/dL (70-110)
[2019-08-01] MEDS: Polyethylene Glycol 3350 17 GM PACKET GT (06:15)
[2019-08-01] MEDS: Ipratropium/Albuterol Sulfate 3 ML AMPUL.NEB INHALATION ×5 (06:45→22:19)
--- NOTE | 2019-08-01 07:23 | PCM.PN.INT ---
Subjective: Patient did okay overnight. Patient did not have a spontaneous awakening or breathing trial this morning secondary to decreased mental status overnight with holding of sedation. Patient has also been increased on Levophed to 12 mcg. Urine output continues to be poor. No bowel movements have been noted. No bleeding has been reported. General: - - Intubated and sedated. RASS -2. HEENT: Atraumatic, PERRLA, EOMI, Normocephalic, - - No scleral icterus or injection noted Oral: Moist Mucosa, No Gingival or Mucosal Lesions/ Ulcerations Neck: Supple, No JVD, No Nodes, Trachea Midline Lungs: No rhonchi, No rales, Diminished, Wheezes, - - Symmetric expansion. Cardiovascular: Normal S1, Normal S2, No murmurs, No rub noted, No Gallop, Tachycardic Abdomen: Bowel Sounds Present, Soft, Non Tender, Non-Distended, Obese Extremities: No cyanosis, Clubbing, Edema Skin: - - No change compared to previous Musculoskeletal: No Tenderness to Palpation of Joints or Extremities Lymphatic: No Cervical, Supraclavicular, or Inguinal Adenopathy Neurological: Cranial nerves II-XII grossly intact, Neuro grossly intact Psych/Mental Status: Flat Affect Vital Signs Temp Pulse Resp BP Pulse Ox 36.5 C L 91 17 104/65 94 08/01/19 04:00 08/01/19 06:45 08/01/19 06:45 08/01/19 06:00 08/01/19 06:45 Oxygen Flow Rate (L/min) 40 Oxygen Delivery Method Mechanical Ventilator Weight: 102.1 kg Body Mass Index (BMI) 35.4 Intake and Output for Last 24 Hours 07/30/19 07/31/19 08/01/19 23:59 23:59 23:59 Intake Total 6021.50 / 6310.83 3515.67 / 4106.57 992.89 / 992.89 Output Total 275 / 275 100 / 150 100 / 100 Balance 5746.50 / 6035.83 3415.67 / 3956.57 892.89 / 892.89 Labs (Last 48 Hours) 07/30/19 07/30/19 07/30/19 08:00 10:10 11:50 WBC RBC Hgb Hct MCV MCH MCHC RDW Std Deviation RDW Coeff of Kimberlee Plt Count MPV Immature Gran % (Auto) Neut % (Auto) Lymph % (Auto) [place] % (Auto) Eos % (Auto) Baso % (Auto) Absolute Neuts (auto) Absolute Lymphs (auto) Nucleated RBC % Differential Comment Platelet Estimate Hypochromasia Anisocytosis Macrocytosis APTT 87.9 H Sodium Potassium Chloride Carbon Dioxide Anion Gap BUN Creatinine Estim Creat Clear Calc Est GFR (MDRD) Af Amer Est GFR (MDRD) Non-Af BUN/Creatinine Ratio Glucose Calcium Phosphorus Magnesium Troponin I 10.700 H* 12.500 H* Vancomycin Trough POC Glucose 07/30/19 07/30/19 07/30/19 17:20 23:35 23:36 WBC RBC Hgb Hct MCV MCH MCHC RDW Std Deviation RDW Coeff of Kimberlee Plt Count MPV Immature Gran % (Auto) Neut % (Auto) Lymph % (Auto) [place] % (Auto) Eos % (Auto) Baso % (Auto) Absolute Neuts (auto) Absolute Lymphs (auto) Nucleated RBC % Differential Comment Platelet Estimate Hypochromasia Anisocytosis Macrocytosis APTT 97.1 H* 79.3 H Sodium Potassium Chloride Carbon Dioxide Anion Gap BUN Creatinine Estim Creat Clear Calc Est GFR (MDRD) Af Amer Est GFR (MDRD) Non-Af BUN/Creatinine Ratio Glucose Calcium Phosphorus Magnesium Troponin I Vancomycin Trough POC Glucose 173 H 07/31/19 07/31/19 07/31/19 05:10 05:10 05:10 WBC 19.2 H RBC 3.05 L Hgb 8.9 L Hct 29.0 L MCV 95.1 MCH 29.2 MCHC 30.7 L RDW Std Deviation 47.4 H RDW Coeff of Kimberlee 13.7 Plt Count 174 MPV 10.5 Immature Gran % (Auto) 0.700 Neut % (Auto) 87.2 H Lymph % (Auto) 7.9 L [place] % (Auto) 3.2 Eos % (Auto) 0.8 Baso % (Auto) 0.2 Absolute Neuts (auto) 16.8 H Absolute Lymphs (auto) 1.52 Nucleated RBC % 0.1 Differential Comment Platelet Estimate Hypochromasia Anisocytosis Macrocytosis APTT 74.1 H Sodium 137 Potassium 4.6 Chloride 106 Carbon Dioxide 23.0 Anion Gap 8 BUN 49 H Creatinine 2.80 H Estim Creat Clear Calc 18.68 Est GFR (MDRD) Af Amer 22 L Est GFR (MDRD) Non-Af 18 L BUN/Creatinine Ratio 17.5 Glucose 208 H Calcium 7.4 L Phosphorus 3.6 Magnesium 1.6 Troponin I Vancomycin Trough POC Glucose 07/31/19 08/01/19 08/01/19 17:30 00:00 00:17 WBC RBC Hgb Hct MCV MCH MCHC RDW Std Deviation RDW Coeff of Kimberlee Plt Count MPV Immature Gran % (Auto) Neut % (Auto) Lymph % (Auto) [place] % (Auto) Eos % (Auto) Baso % (Auto) Absolute Neuts (auto) Absolute Lymphs (auto) Nucleated RBC % Differential Comment Platelet Estimate Hypochromasia Anisocytosis Macrocytosis APTT Sodium Potassium Chloride Carbon Dioxide Anion Gap BUN Creatinine Estim Creat Clear Calc Est GFR (MDRD) Af Amer Est GFR (MDRD) Non-Af BUN/Creatinine Ratio Glucose Calcium Phosphorus Magnesium Troponin I Vancomycin Trough 30.7 H POC Glucose 195 H 251 H 08/01/19 08/01/19 08/01/19 04:00 04:00 04:00 WBC 27.4 H RBC 3.07 L Hgb 9.0 L Hct 30.7 L MCV 100.0 H D MCH 29.3 MCHC 29.3 L RDW Std Deviation 50.1 H RDW Coeff of Kimberlee 13.9 Plt Count 230 MPV 10.9 Immature Gran % (Auto) 1.700 H Neut % (Auto) 91.8 H Lymph % (Auto) 3.7 L [place] % (Auto) 2.1 Eos % (Auto) 0.4 Baso % (Auto) 0.3 Absolute Neuts (auto) 25.2 H Absolute Lymphs (auto) 1.00 Nucleated RBC % 0.1 Differential Comment COMMENT Platelet Estimate ADEQUATE Hypochromasia 1+ Anisocytosis 1+ Macrocytosis RARE APTT 70.8 H Sodium 133 L Potassium 5.3 H Chloride 103 Carbon Dioxide 21.0 Anion Gap 9 BUN 58 H Creatinine 3.77 H Estim Creat Clear Calc 13.87 Est GFR (MDRD) Af Amer 16 L Est GFR (MDRD) Non-Af 13 L BUN/Creatinine Ratio 15.4 Glucose 239 H Calcium 7.1 L Phosphorus 5.2 H Magnesium 1.9 Troponin I Vancomycin Trough POC Glucose 08/01/19 05:35 WBC RBC Hgb Hct MCV MCH MCHC RDW Std Deviation RDW Coeff of Kimberlee Plt Count MPV Immature Gran % (Auto) Neut % (Auto) Lymph % (Auto) [place] % (Auto) Eos % (Auto) Baso % (Auto) Absolute Neuts (auto) Absolute Lymphs (auto) Nucleated RBC % Differential Comment Platelet Estimate Hypochromasia Anisocytosis Macrocytosis APTT Sodium Potassium Chloride Carbon Dioxide Anion Gap BUN Creatinine Estim Creat Clear Calc Est GFR (MDRD) Af Amer Est GFR (MDRD) Non-Af BUN/Creatinine Ratio Glucose Calcium Phosphorus Magnesium Troponin I Vancomycin Trough POC Glucose 225 H Microbiology 07/29/19 22:00 Blood Culture (Wb) - Central Line Bacteria Detection (PCR) - Final Coag Negative Staph 07/29/19 22:00 Blood Culture (Wb) - Central Line Blood Culture - Preliminary Coag Negative Staph 07/29/19 Unknown Sputum, Induced/Lukens Gram Stain - Final 07/29/19 Unknown Sputum, Induced/Lukens Respiratory Culture - Preliminary Appears to be normal respiratory jasmin. Further studies to follow. 07/29/19 21:00 Mucosa - Nasopharyngeal Respiratory Panel (PCR) - Final 07/30/19 03:30 Stool C. difficile DNA Amplification - Final Medical Necessity - Tobacco Use Smoking Status: Former smoker Assessment/Plan All Active Problems (Last Reviewed 07/29/19 @ 20:[address] Feliberto Rahman MD) Septic shock (Acute) Respiratory arrest before cardiac arrest (Acute) Acute kidney injury (Acute) Non-ST elevated myocardial infarction (Acute) RECOMMENDATIONS: 1. Repeat panculture with fever 2. Potential placement of hemodialysis line per nephrology 3. Wean pressors as tolerated. Map greater than 65 4. Spontaneous breathing and awakening trials per protocol 5. Continue empiric antibiotics for now 6. Discontinue heparin drip. 7. Aggressive bowel regimen IMPRESSIONS: 1. Acute on chronic combined respiratory failure secondary to presumed COPD exacerbation secondary to pneumonia versus COVID-19 Unclear etiology of initial respiratory arrest. History is very limited at this time. Patient may have a viral etiology for COPD exacerbation, but work-up including COVID have been negative. Given advanced lung disease, infiltrates may not be present on initial imaging. Patient had significant secretions suggesting a COPD exacerbation. Cultures are currently reporting coag negative staph in blood, but no further fevers have been noted. Agree with empiric antibiotics 2. Non-ST elevation AK following cardiopulmonary arrest/shock Previous echocardiogram is dated, but showed normal function previously. Repeat echocardiogram shows no significant changes. Patient has had a significant elevation in troponin to 12.5. Clinical course would be suggestive of distributive shock secondary to sepsis versus arrest. Patient may need to be seen by cardiology for possible heart catheterization, but would attempt stabilization initially. Patient is currently on aspirin. Unclear etiology of continued need for pressor therapy. Patient may have an element of acidosis related to renal failure. Patient was transitioned from stress dose steroids to Solu-Medrol yesterday. Patient is significantly positive over the course of her hospitalization secondary to problem #3. 3. Acute kidney injury secondary to #1 and #2 Medical suspicion for prerenal etiology secondary to previous problems. No indication for renal replacement therapy at this time, but with oliguric renal failure and prolonged resuscitation, ATN is suspected. Increasing creatinine is suggestive of complete renal shutdown. Appreciate nephrology recommendations. Patient may require early hemodialysis. We will continue to monitor closely. 4. Possible anoxic brain injury Patient with extensive resuscitation time at outside facility. Unclear if patient truly had nonperfusion for that long as she does appear to be following commands appropriately. Cannot exclude memory issues, but patient is not acting like significant anoxic injury at this time. 5. History of noncompliance/obesity/AISSATOU Complicates care, management, recovery and prognosis. No BiPAP required as patient is currently intubated. Okay to continue tube feeds. Patient is on systemic anticoagulation. TIME: 32 minutes of critical care time spent addressing patient's respiratory failure, non-ST elevation AK, acute kidney injury, review of all data and collaboration with care team (6:30 AM to 7:30 AM) 9xxxx: [id number] Critical care first hour
[2019-08-01] MEDS: Chlorhexidine 15 ML PO ×2 (09:33→21:50)
[2019-08-01] MEDS: Senna Tablet 2 TABLET NG ×2 (09:33→21:49)
[2019-08-01] MEDS: Aspirin 81 MG TAB.CHEW NG (09:33)
[2019-08-01] MEDS: Famotidine 200 MG/20 ML MDV 20 MG in 0.9% Normal Saline (Pres. free 8 ML 300 MG IV ×2 (10:18→21:51)
[2019-08-01] MEDS: levoFLOXacin IV 750 MG/150 ML BAG 100 MG IV (10:18)
--- NOTE | 2019-08-01 10:48 | PN_ITS ---
Patient Problems: Active and Suspected Problems (Last Reviewed 07/29/19 @ 20:[address] Feliberto Rahman MD) Pneumonia (Suspected) Septic shock (Acute) Respiratory arrest before cardiac arrest (Acute) Acute kidney injury (Acute) Non-ST elevated myocardial infarction (Acute) Reason for Visit: CPA Subjective: Still on vent. increased norepi. Vitals/I&O's: Vital Signs Temp Pulse Resp BP Pulse Ox 36.5 C L 92 14 103/52 L 92 08/01/19 04:08/01/19 10:00 08/01/19 10:00 08/01/19 10:00 08/01/19 10:00 Oxygen Flow Rate (L/min) 40 Oxygen Delivery Method Mechanical Ventilator Weight: 102.1 kg Body Mass Index (BMI) 35.4 Intake and Output for Last 24 Hours 07/30/19 07/31/19 08/01/19 23:59 23:59 23:59 Intake Total 6021.50 / 6310.83 3515.67 / 4106.57 1126.81 / 1126.81 Output Total 275 / 275 100 / 150 100 / 100 Balance 5746.50 / 6035.83 3415.67 / 3956.57 1026.81 / 1026.81 General: - - intubated and sedated. HEENT: Atraumatic, Normocephalic Oral: Moist Mucosa, No Gingival or Mucosal Lesions/ Ulcerations Neck: No Nodes, Trachea Midline Lungs: Clear to auscultation, Normal air movement Cardiovascular: Regular rate, Regular Rhythm, Normal S1, Normal S2, No murmurs Abdomen: Bowel Sounds Present, Soft, Non Tender, Non-Distended, No Hepato-splenomegaly Extremities: No edema, No Calf Tenderness Skin: No rashes, No breakdown Psych/Mental Status: Normal Affect, Appropriate Microbiology Past 72 Hours 07/29/19 22:00 Blood Culture (Wb) - Central Line Bacteria Detection (PCR) - Final Coag Negative Staph 07/29/19 22:00 Blood Culture (Wb) - Central Line Blood Culture - Preliminary Coag Negative Staph 07/29/19 Unknown Sputum, Induced/Lukens Gram Stain - Final 07/29/19 Unknown Sputum, Induced/Lukens Respiratory Culture - Preliminary Appears to be normal respiratory jasmin. Further studies to follow. 07/29/19 21:00 Mucosa - Nasopharyngeal Respiratory Panel (PCR) - Final 07/30/19 03:30 Stool C. difficile DNA Amplification - Final 07/29/19 22:10 Urine Catheter - Jimenez Streptococcus pneumoniae Antigen (M - Final 07/29/19 22:10 Urine Catheter - Jimenez Legionella Antigen - Final Laboratory Results 07/31/19 17:30: POC Glucose 195 H 08/01/19 00:00: Vancomycin Trough 30.7 H 08/01/19 00:17: POC Glucose 251 H 08/01/19 04:00: APTT 70.8 H 08/01/19 04:00: WBC 27.4 H, RBC 3.07 L, Hgb 9.0 L, Hct 30.7 L, MCV 100.0 H D, MCH 29.3, MCHC 29.3 L, RDW Std Deviation 50.1 H, RDW Coeff of Kimberlee 13.9, Plt Count 230, MPV 10.9, Immature Gran % (Auto) 1.700 H, Neut % (Auto) 91.8 H, Lymph % (Auto) 3.7 L, [place] % (Auto) 2.1, Eos % (Auto) 0.4, Baso % (Auto) 0.3, Absolute Neuts (auto) 25.2 H, Absolute Lymphs (auto) 1.00, Nucleated RBC % 0.1, Differential Comment COMMENT, Platelet Estimate ADEQUATE, Hypochromasia 1+, Anisocytosis 1+, Macrocytosis RARE 08/01/19 04:00: Sodium 133 L, Potassium 5.3 H, Chloride 103, Carbon Dioxide 21.0, Anion Gap 9, BUN 58 H, Creatinine 3.77 H, Estim Creat Clear Calc 13.87, Est GFR (MDRD) Af Amer 16 L, Est GFR (MDRD) Non-Af 13 L, BUN/Creatinine Ratio 15.4, Glucose 239 H, Calcium 7.1 L, Phosphorus 5.2 H, Magnesium 1.9 08/01/19 05:35: POC Glucose 225 H Current Medications Acetaminophen (Tylenol) 650 mg PO Q6H PRN PRN PRN Reason: Pain Score 1-10/Temp > 100.7 F Albuterol Sulfate (Ventolin Aerosols) 2.5 mg INHALATION Q2H PRN PRN PRN Reason: SOB &/OR WHEEZING Last Admin: 08/01/19 04:13 Dose: 2.5 mg Documented by: Albuterol/Ipratropium (Duoneb) 3 ml INHALATION Q4H.RT [facility] Last Admin: 08/01/19 10:42 Dose: 3 ml Documented by: Aspirin (Aspirin, Baby) 81 mg NG DAILY@0800 [facility] Last Admin: 08/01/19 09:33 Dose: 81 mg Documented by: Atorvastatin Calcium (Lipitor) 40 mg NG QHS [facility] Last Admin: 07/31/19 21:47 Dose: 40 mg Documented by: Chlorhexidine Gluconate () 15 ml PO BID [facility] Last Admin: 08/01/19 09:33 Dose: 15 ml Documented by: Dextrose (D50w Syringe) 0 gm IV X1 PRN; Protocol PRN Reason: Hypoglycemia Glucagon () 1 mg IM .X1 PRN PRN Reason: Hypoglycemia Norepinephrine Bitartrate 8 mg (/ Sodium Chloride) 250 mls @ 9.375 mls/hr CONT INF .[id number] [facility]; Protocol Last Titration: 08/01/19 10:00 Dose: 12 mcg/min, 22.5 mls/hr Documented by: Sodium Chloride () 250 mls @ 15 mls/hr IV .[id number] PRN PRN Reason: Saline Flush Sodium Chloride () 250 mls @ 15 mls/hr IV .[id number] PRN PRN Reason: Additional IVPB Infusion Last Infusion: 07/30/19 04:52 Dose: Infused Documented by: Levofloxacin (Levaquin Iv) 750 mg in 150 mls @ 100 mls/hr IV Q48 [facility] Last Admin: 08/01/19 10:18 Dose: 100 mls/hr Documented by: Vancomycin IV Pharmacy to Dose (1,500 ea/ Sodium Chloride) 500 mls @ 250 mls/hr IV Q12 PRN; Protocol Fentanyl () 100 mls @ 2.5 mls/hr IV UD [facility]; Protocol Last Titration: 08/01/19 10:25 Dose: 25 mcg/hr, 2.5 mls/hr Documented by: Propofol (Diprivan) 1,000 mg in 100 mls @ 6.126 mls/hr CONT INF .Q12H [facility]; Protocol Last Titration: 08/01/19 10:00 Dose: 10 mcg/kg/min, 6.1 mls/hr Documented by: Sodium Chloride () 1,000 mls @ 75 mls/hr IV .[id number] [facility] Last Admin: 08/01/19 01:40 Dose: 75 mls/hr Documented by: Famotidine 20 mg/ Sodium (Chloride) 10 mls @ 300 mls/hr IV Q12 [facility] Last Infusion: 08/01/19 10:24 Dose: Infused Documented by: Enteral Nutritional Formula (Vital Af 1.2 Vickey Liquid) 1,000 mls @ 55 mls/hr GT .[id number] [facility] Last Admin: 08/01/19 00:18 Dose: Not Given Documented by: Insulin Human Lispro (Humalog Kwikpen (Bkc)) 0 unit SC Q6 [facility]; Protocol Last Admin: 08/01/19 05:35 Dose: 2 u Documented by: Methylprednisolone (Solu-Medrol) 40 mg IV Q8 [facility] Last Admin: 08/01/19 05:36 Dose: 40 mg Documented by: Ondansetron HCl (Zofran) 4 mg IV Q8H PRN PRN PRN Reason: NAUSEA/VOMITING Senna (Senokot) 2 tablet NG BID [facility] Last Admin: 08/01/19 09:33 Dose: 2 tablet Documented by: Sodium Chloride () 10 - 40 ml IV UD PRN PRN Reason: Multilumen/Hoffman Flush Last Admin: 07/31/19 21:57 Dose: 40 ml Documented by: Sodium Chloride (0.9% Nacl (Sterile) Posiflush) 10 - 40 ml IV UD PRN PRN Reason: Port access or dressing change Sodium Chloride () 10 - 40 ml IV UD PRN PRN Reason: SALINE FLUSH Last Admin: 07/30/19 08:10 Dose: 20 ml Documented by: STROKE Vital Signs/Narrative: Vital Signs Pulse Resp BP Pulse Ox 08/01/19 10:00 92 14 103/52 L 92 08/01/19 09:20 88 17 92 08/01/19 09:00 90 14 110/47 L 92 08/01/19 08:00 128 H 14 114/76 96 08/01/19 07:45 86 08/01/19 07:00 85 14 103/50 L 95 Medical Necessity - Tobacco Use Smoking Status: Former smoker Assessment/Plan All Active Problems (Last Reviewed 07/29/19 @ 20:[address] Feliberto Rahman MD) Septic shock (Acute) Respiratory arrest before cardiac arrest (Acute) Acute kidney injury (Acute) Non-ST elevated myocardial infarction (Acute) 1. septic shock: etiology unclear. On broad spectrum antibiotics. Follow up cultures. Etiology could be pneumonia, though CXR unremarkable, v other. On hydrocortisone and norepi. COVID-19 negative. 2. acute hypoxic respiratory failure: 2/2 AECOPD +/- pneumonia. On vent 3. cardiopulmonary arrest: Vtach to PEA then asystole before resumption of normal sinus. Echo shows EF of 65% 4. KEITH: unclear etiology. ATN v prerenal. monitor. 5. NSTEMI: may be due CPA. On ASA, heparin gtt. 6. VTE prophylaxis: anticoagulated. Inpatient E&M: [id number] Subs Hosp L2
--- NOTE | 2019-08-01 11:25 | CASEMGMT ---
SUE [facility] Note: call received from pt's insurance verification clerk, Vonnie @ . (fax: [phone]). Clinical update given that pt remains in ICU and on ventilator, Levophed. CM is available for dc needs and will contact CM again next week for update. Kristie KIMBALL RN ACM
[2019-08-01 12:20] LABS: Bedside Glucose 197 mg/dL (70-110)
--- NOTE | 2019-08-01 13:29 | PCM.PN.REN ---
Patient Problems: Active and Suspected Problems (Last Reviewed 07/29/19 @ 20:[address] Feliberto Rahman MD) Pneumonia (Suspected) Septic shock (Acute) Respiratory arrest before cardiac arrest (Acute) Acute kidney injury (Acute) Non-ST elevated myocardial infarction (Acute) Subjective: No new events reMains intubated, but responds to questions appropriately Very minimal urine output - Physical Exam Vitals/I&O's: Vital Signs Temp Pulse Resp BP Pulse Ox 98.8 F 92 14 105/54 L 92 08/01/19 12:00 08/01/19 12:00 08/01/19 12:00 08/01/19 12:00 08/01/19 12:00 Oxygen Flow Rate (L/min) 40 Oxygen Delivery Method Mechanical Ventilator Weight: 102.1 kg Body Mass Index (BMI) 35.4 Intake and Output for Last 24 Hours 07/30/19 07/31/19 08/01/19 23:59 23:59 23:59 Intake Total 6021.50 / 6310.83 3515.67 / 4106.57 1387.97 / 1387.97 Output Total 275 / 275 100 / 150 100 / 100 Balance 5746.50 / 6035.83 3415.67 / 3956.57 1287.97 / 1287.97 General: Alert, Oriented x3, Cooperative HEENT: Atraumatic, PERRLA, EOMI, Normocephalic Neck: Supple, No JVD, Negative Carotid Bruits Lungs: Clear to auscultation, Normal air movement Cardiovascular: Regular rate, No murmurs Abdomen: Bowel Sounds Present, Soft, Non Tender Extremities: No edema, Capillary Refill Less than 3 Seconds Skin: No rashes, No breakdown Musculoskeletal: No Tenderness to Palpation of Joints or Extremities Microbiology Past 72 Hours 07/29/19 Unknown Sputum, Induced/Lukens Gram Stain - Final 07/29/19 Unknown Sputum, Induced/Lukens Respiratory Culture - Final 07/29/19 22:00 Blood Culture (Wb) - Central Line Bacteria Detection (PCR) - Final Coag Negative Staph 07/29/19 22:00 Blood Culture (Wb) - Central Line Blood Culture - Preliminary Coag Negative Staph 07/29/19 21:00 Mucosa - Nasopharyngeal Respiratory Panel (PCR) - Final 07/30/19 03:30 Stool C. difficile DNA Amplification - Final 07/29/19 22:10 Urine Catheter - Jimenez Streptococcus pneumoniae Antigen (M - Final 07/29/19 22:10 Urine Catheter - Jimenez Legionella Antigen - Final Laboratory Results 07/31/19 17:30: POC Glucose 195 H 08/01/19 00:00: Vancomycin Trough 30.7 H 08/01/19 00:17: POC Glucose 251 H 08/01/19 04:00: APTT 70.8 H 08/01/19 04:00: WBC 27.4 H, RBC 3.07 L, Hgb 9.0 L, Hct 30.7 L, MCV 100.0 H D, MCH 29.3, MCHC 29.3 L, RDW Std Deviation 50.1 H, RDW Coeff of Kimberlee 13.9, Plt Count 230, MPV 10.9, Immature Gran % (Auto) 1.700 H, Neut % (Auto) 91.8 H, Lymph % (Auto) 3.7 L, [place] % (Auto) 2.1, Eos % (Auto) 0.4, Baso % (Auto) 0.3, Absolute Neuts (auto) 25.2 H, Absolute Lymphs (auto) 1.00, Nucleated RBC % 0.1, Differential Comment COMMENT, Platelet Estimate ADEQUATE, Hypochromasia 1+, Anisocytosis 1+, Macrocytosis RARE 08/01/19 04:00: Sodium 133 L, Potassium 5.3 H, Chloride 103, Carbon Dioxide 21.0, Anion Gap 9, BUN 58 H, Creatinine 3.77 H, Estim Creat Clear Calc 13.87, Est GFR (MDRD) Af Amer 16 L, Est GFR (MDRD) Non-Af 13 L, BUN/Creatinine Ratio 15.4, Glucose 239 H, Calcium 7.1 L, Phosphorus 5.2 H, Magnesium 1.9 08/01/19 05:35: POC Glucose 225 H 08/01/19 12:18: POC Glucose 197 H Current Medications Acetaminophen (Tylenol) 650 mg PO Q6H PRN PRN PRN Reason: Pain Score 1-10/Temp > 100.7 F Albuterol Sulfate (Ventolin Aerosols) 2.5 mg INHALATION Q2H PRN PRN PRN Reason: SOB &/OR WHEEZING Last Admin: 08/01/19 04:13 Dose: 2.5 mg Documented by: Albuterol/Ipratropium (Duoneb) 3 ml INHALATION Q4H.RT [facility] Last Admin: 08/01/19 10:42 Dose: 3 ml Documented by: Aspirin (Aspirin, Baby) 81 mg NG DAILY@0800 [facility] Last Admin: 08/01/19 09:33 Dose: 81 mg Documented by: Atorvastatin Calcium (Lipitor) 40 mg NG QHS [facility] Last Admin: 07/31/19 21:47 Dose: 40 mg Documented by: Chlorhexidine Gluconate () 15 ml PO BID [facility] Last Admin: 08/01/19 09:33 Dose: 15 ml Documented by: Dextrose (D50w Syringe) 0 gm IV X1 PRN; Protocol PRN Reason: Hypoglycemia Glucagon () 1 mg IM .X1 PRN PRN Reason: Hypoglycemia Norepinephrine Bitartrate 8 mg (/ Sodium Chloride) 250 mls @ 9.375 mls/hr CONT INF .[id number] [facility]; Protocol Last Titration: 08/01/19 12:00 Dose: 12 mcg/min, 22.5 mls/hr Documented by: Sodium Chloride () 250 mls @ 15 mls/hr IV .[id number] PRN PRN Reason: Saline Flush Sodium Chloride () 250 mls @ 15 mls/hr IV .[id number] PRN PRN Reason: Additional IVPB Infusion Last Infusion: 07/30/19 04:52 Dose: Infused Documented by: Levofloxacin (Levaquin Iv) 750 mg in 150 mls @ 100 mls/hr IV Q48 [facility] Last Infusion: 08/01/19 11:54 Dose: Infused Documented by: Vancomycin IV Pharmacy to Dose (1,500 ea/ Sodium Chloride) 500 mls @ 250 mls/hr IV Q12 PRN; Protocol Fentanyl () 100 mls @ 2.5 mls/hr IV UD [facility]; Protocol Last Titration: 08/01/19 12:00 Dose: 25 mcg/hr, 2.5 mls/hr Documented by: Propofol (Diprivan) 1,000 mg in 100 mls @ 6.126 mls/hr CONT INF .Q12H [facility]; Protocol Last Titration: 08/01/19 12:00 Dose: 10 mcg/kg/min, 6.1 mls/hr Documented by: Sodium Chloride () 1,000 mls @ 75 mls/hr IV .[id number] [facility] Last Admin: 08/01/19 01:40 Dose: 75 mls/hr Documented by: Famotidine 20 mg/ Sodium (Chloride) 10 mls @ 300 mls/hr IV Q12 [facility] Last Infusion: 08/01/19 10:24 Dose: Infused Documented by: Enteral Nutritional Formula (Vital Af 1.2 Vickey Liquid) 1,000 mls @ 55 mls/hr GT .[id number] [facility] Last Admin: 08/01/19 00:18 Dose: Not Given Documented by: Insulin Human Lispro (Humalog Kwikpen (Bkc)) 0 unit SC Q6 [facility]; Protocol Last Admin: 08/01/19 12:42 Dose: Not Given Documented by: Methylprednisolone (Solu-Medrol) 40 mg IV Q8 [facility] Last Admin: 08/01/19 05:36 Dose: 40 mg Documented by: Ondansetron HCl (Zofran) 4 mg IV Q8H PRN PRN PRN Reason: NAUSEA/VOMITING Senna (Senokot) 2 tablet NG BID [facility] Last Admin: 08/01/19 09:33 Dose: 2 tablet Documented by: Sodium Chloride () 10 - 40 ml IV UD PRN PRN Reason: Multilumen/Hoffman Flush Last Admin: 07/31/19 21:57 Dose: 40 ml Documented by: Sodium Chloride (0.9% Nacl (Sterile) Posiflush) 10 - 40 ml IV UD PRN PRN Reason: Port access or dressing change Sodium Chloride () 10 - 40 ml IV UD PRN PRN Reason: SALINE FLUSH Last Admin: 07/30/19 08:10 Dose: 20 ml Documented by: Medical Necessity - Tobacco Use Smoking Status: Former smoker Assessment/Plan All Active Problems (Last Reviewed 07/29/19 @ 20:[address] Feliberto Rahman MD) Septic shock (Acute) Respiratory arrest before cardiac arrest (Acute) Acute kidney injury (Acute) Non-ST elevated myocardial infarction (Acute) Acute renal failure. No prior kidney disease as per records. Most likely ATN in the setting of prolonged cardiac arrest. Discussed with staff. She has been anuric since admission. BUN, creatinine are worse. Urine output remains very poor. Borderline hyperkalemia, volume overload. Failed spontaneous breathing trial. Will need renal replacement therapy at least on a temporary basis. Discussed with over phone. He would like to talk to family members before proceeding with dialysis. Discussed with Dr. Torres.
--- NOTE | 2019-08-01 14:17 | RAD_ITS ---
STUDY: X-RAY CHEST REASON FOR EXAM: Female, 59 years old. Temporary dialysis cath placement- left IJ -- Dr. Sanz and Dr. Torres looked at xray-did not want a repeat to include entire lung field TECHNIQUE: Single AP portable view of the chest. COMPARISON: Comparison is made with prior examination dated July 29, 2019. FINDINGS: A left-sided temporary dialysis catheter as been placed. The tip is at the junction of the superior vena cava and right atrium. A right-sided central line is in situ with the tip in the superior vena cava. This is unchanged. An endotracheal tube is in situ. The tip is at 2.6 cm proximal to the yissel. The lungs are clear and expanded. There is no demonstrated pleural abnormality. Normal size heart. Normal mediastinum and tyrone. Normal visualized pulmonary arteries. Normal visualized aortic arch and descending thoracic aorta. Normal visualized thoracic spine. Normal visualized ribs, clavicles, and shoulders. There is no demonstrated abnormality of the visualized soft tissue structures of the upper abdomen. RAD/CXR for Line Placement IMPRESSION: Left-sided temporary dialysis catheter as been placed with the tip at the junction of the superior vena cava and right atrium. There has been no change since prior study. Electronically Signed: Sunil Encinas, at 15:08 EDT , Service support ,
[2019-08-01 17:05] LABS: Bedside Glucose 150 mg/dL (70-110)
--- NOTE | 2019-08-01 17:14 | PCM.OP.PRO ---
Problem List (1) Acute kidney injury Status: Acute Procedure Report Date of Procedure: 08/01/19 left IJ temporary dialysis catheter placement Left IJ visualized prior to procedure. wide open. discussed with . consented to procedure via phone. witnessed by Mimi ROGERS taking care of patient patient prepped under usual aseptic precautions. chlor prep used locally, drape applied. 1% lidocaine applied for local anesthesia. under US guidance, needle placed in left IJ with return of blood. guidewire placed without resistance. tract dilated via serial dilators. 12 F 20 Cm dialysis catheter advanced over guidewire. once catheter in place, guidewire removed and both ports clamped. venous return via both ports without resistance. sterile sutures applied followed by dressing. no immediate complications stat CXR with no pneumo. catheter looks like it may be against the wall. if any flow issues will consider withdrawing a little bit.
[2019-08-01] MEDS: Heparin 10,000 UNITS/10 ML Vial IV (18:05)
--- NOTE | 2019-08-01 18:33 | DIALYSIS ---
1st Hemodialysis tx completed today x 2.5hrs. -2400ml off. tolerated very well with no adjustment to levo gtt on tx. Stable t/o. CVC required line reversal today. CVC closed with Heparin to each lumen fill volume. Report to Mimi Ritchie RN
[2019-08-01] MEDS: Propofol 10MG/Ml 1,000 MG/100 ML Bottle 6.1 MG CONT INF (20:00)
[2019-08-01] MEDS: Atorvastatin Calcium 40 MG Tablet NG (21:49)
[2019-08-01 23:36] LABS: Bedside Glucose 179 mg/dL (70-110)
[2019-08-02] VITALS (52 sets, daily range): BP systolic 88–153; BP diastolic 49–89; PULSE 63–100; RESP 12–21; TEMP 35.7–36.6; O2SAT 87–98
[2019-08-02] MEDS: Ipratropium/Albuterol Sulfate 3 ML AMPUL.NEB INHALATION ×6 (03:09→22:47)
[2019-08-02 04:33] LABS: Absolute Lymphocyte Count 0.86 X10^3/uL (0.83-4.51); Absolute Neutrophil Count 16.4 X10^3/uL (2.0-7.7); Basophil# 0.02 X10^3/uL; Basophil% 0.1 % (0-1); Hemoglobin 7.7 g/dL (12.0-15.0); Lymphocyte # 0.86 X10^3/ul (4.0); Lymphocyte % 4.7 % (19-41); Mean Corp Hgb Conc 30.8 g/dL (32-36); Mean Corpuscular Hgb 29.3 pg (27.0-32.0); Mean Corpuscular Volume 95.1 fL (81-99); Mean Platelet Vol. 10.6 fl (6.2-12.0); Monocyte% 3.3 % (0-10); NRBC Flagged by Analyzer 0.2 % (0-5); Neutrophil # 16.35 X10^3/uL (2.7-7.7); Neutrophil % 89.9 % (47-70); POSITIVE MORPHOLOGY YES; Platelet Count 189 K/mm3 (150-450); RBC Distribution Width CV 13.7 % (11.6-14.6); RBC Distribution Width SD 47.7 fl (35.1-43.9); Red Blood Count 2.63 M/mm3 (4.2-5.4); White Blood Count 18.2 K/mm3 (4.4-11.0)
[2019-08-02 04:40] LABS: Differential Indicated SCAN CRITERIA MET
[2019-08-02 04:46] LABS: Partial Thromboplast Time 28.8 Seconds (24.1-36.2)
[2019-08-02 04:57] LABS: Anion Gap 9 (5-15); BUN 51 mg/dL (7-18); BUN/Creat Ratio 14.9 RATIO (10-20); Calcium,Total 6.7 mg/dL (8.5-10.1); Chloride 101 mmol/L (98-107); Creatinine, Serum 3.42 mg/dL (0.55-1.02); EST Glomerular Filtration Rate 15 mL/min (>60); Est Glom Filt Rate - Afr Amer 18 mL/min (>60); Estimated Creatinine Clearance 15.29 ml/min; Glucose 208 mg/dL (74-106); Potassium 4.3 mmol/L (3.5-5.1); Sodium Level 134 mmol/L (136-145)
[2019-08-02 05:26] LABS: Anisocytosis 1+; Hypochromasia 1+; Platelet Estimate ADEQUATE (ADEQ)
[2019-08-02] MEDS: Insulin Lispro 100 UNIT/ML INSULN.PEN SC ×4 (05:42→23:07)
[2019-08-02] MEDS: Haloperidol Lactate 5 MG/ML Vial IV (05:42)
[2019-08-02 05:44] LABS: Vancomycin, Random Level 24.5 ug/mL (0.0-15.0)
[2019-08-02] MEDS: Vital AF 1.2 Cal Liquid 1,000 ML 55 ML GT (06:25)
--- NOTE | 2019-08-02 07:07 | PCM.PN.INT ---
Subjective: Patient did okay overnight. Patient tolerated hemodialysis yesterday without complications and was able to be taken off of Levophed. Patient did have a spontaneous breathing trial this morning, but started to become agitated after approximately 30 to 45 minutes. This led to desaturation and sedation had to be reinitiated. Did attempt Haldol for anxiety, but this was not successful. Patient has not had a bowel movement. General: - - Intubated and sedated. Obese. Fair vent synchrony. HEENT: Atraumatic, PERRLA, EOMI, Normocephalic, - - No scleral icterus or injection noted Oral: Moist Mucosa, No Gingival or Mucosal Lesions/ Ulcerations Neck: Supple, No JVD, No Nodes, Trachea Midline Lungs: No rhonchi, No rales, Diminished, Wheezes, - - Symmetric expansion. Cardiovascular: Normal S1, Normal S2, No murmurs, No rub noted, No Gallop, Tachycardic Abdomen: Bowel Sounds Present, Soft, Non Tender, Non-Distended, Obese Extremities: No cyanosis, No edema, Capillary Refill Less than 3 Seconds, Clubbing Skin: No rashes, No breakdown Musculoskeletal: No Tenderness to Palpation of Joints or Extremities Lymphatic: No Cervical, Supraclavicular, or Inguinal Adenopathy Neurological: Cranial nerves II-XII grossly intact, Neuro grossly intact Psych/Mental Status: Flat Affect Vital Signs Temp Pulse Resp BP Pulse Ox 36.4 C L 95 14 112/71 90 08/02/19 00:00 08/02/19 07:00 08/02/19 07:00 08/02/19 07:00 08/02/19 07:00 Oxygen Flow Rate (L/min) 40 Oxygen Delivery Method Mechanical Ventilator Weight: 102 kg Body Mass Index (BMI) 35.4 Intake and Output for Last 24 Hours 07/31/19 08/01/19 08/02/19 23:59 23:59 23:59 Intake Total 3515.67 / 4106.57 2668.67 / 2781.07 168.01 / 168.01 Output Total 100 / 150 2550 / 2650 175 / 175 Balance 3415.67 / 3956.57 118.67 / 131.07 -6.99 / -6.99 Labs (Last 48 Hours) 07/31/19 08/01/19 08/01/19 17:30 00:00 00:17 WBC RBC Hgb Hct MCV MCH MCHC RDW Std Deviation RDW Coeff of Kimberlee Plt Count MPV Immature Gran % (Auto) Neut % (Auto) Lymph % (Auto) [place] % (Auto) Eos % (Auto) Baso % (Auto) Absolute Neuts (auto) Absolute Lymphs (auto) Nucleated RBC % Differential Comment Platelet Estimate Hypochromasia Anisocytosis Macrocytosis APTT Sodium Potassium Chloride Carbon Dioxide Anion Gap BUN Creatinine Estim Creat Clear Calc Est GFR (MDRD) Af Amer Est GFR (MDRD) Non-Af BUN/Creatinine Ratio Glucose Calcium Phosphorus Magnesium Vancomycin Trough 30.7 H Random Vancomycin Hep Bs Antigen Hep Bs Antibody Hep B Core Total Ab POC Glucose 195 H 251 H 08/01/19 08/01/19 08/01/19 04:00 04:00 04:00 WBC 27.4 H RBC 3.07 L Hgb 9.0 L Hct 30.7 L MCV 100.0 H D MCH 29.3 MCHC 29.3 L RDW Std Deviation 50.1 H RDW Coeff of Kimberlee 13.9 Plt Count 230 MPV 10.9 Immature Gran % (Auto) 1.700 H Neut % (Auto) 91.8 H Lymph % (Auto) 3.7 L [place] % (Auto) 2.1 Eos % (Auto) 0.4 Baso % (Auto) 0.3 Absolute Neuts (auto) 25.2 H Absolute Lymphs (auto) 1.00 Nucleated RBC % 0.1 Differential Comment COMMENT Platelet Estimate ADEQUATE Hypochromasia 1+ Anisocytosis 1+ Macrocytosis RARE APTT 70.8 H Sodium 133 L Potassium 5.3 H Chloride 103 Carbon Dioxide 21.0 Anion Gap 9 BUN 58 H Creatinine 3.77 H Estim Creat Clear Calc 13.87 Est GFR (MDRD) Af Amer 16 L Est GFR (MDRD) Non-Af 13 L BUN/Creatinine Ratio 15.4 Glucose 239 H Calcium 7.1 L Phosphorus 5.2 H Magnesium 1.9 Vancomycin Trough Random Vancomycin Hep Bs Antigen Hep Bs Antibody Hep B Core Total Ab POC Glucose 08/01/19 08/01/19 08/01/19 05:35 12:18 16:35 WBC RBC Hgb Hct MCV MCH MCHC RDW Std Deviation RDW Coeff of Kimberlee Plt Count MPV Immature Gran % (Auto) Neut % (Auto) Lymph % (Auto) [place] % (Auto) Eos % (Auto) Baso % (Auto) Absolute Neuts (auto) Absolute Lymphs (auto) Nucleated RBC % Differential Comment Platelet Estimate Hypochromasia Anisocytosis Macrocytosis APTT Sodium Potassium Chloride Carbon Dioxide Anion Gap BUN Creatinine Estim Creat Clear Calc Est GFR (MDRD) Af Amer Est GFR (MDRD) Non-Af BUN/Creatinine Ratio Glucose Calcium Phosphorus Magnesium Vancomycin Trough Random Vancomycin Hep Bs Antigen Hep Bs Antibody Pending Hep B Core Total Ab POC Glucose 225 H 197 H 08/01/19 08/01/19 08/01/19 16:35 16:35 17:03 WBC RBC Hgb Hct MCV MCH MCHC RDW Std Deviation RDW Coeff of Kimberlee Plt Count MPV Immature Gran % (Auto) Neut % (Auto) Lymph % (Auto) [place] % (Auto) Eos % (Auto) Baso % (Auto) Absolute Neuts (auto) Absolute Lymphs (auto) Nucleated RBC % Differential Comment Platelet Estimate Hypochromasia Anisocytosis Macrocytosis APTT Sodium Potassium Chloride Carbon Dioxide Anion Gap BUN Creatinine Estim Creat Clear Calc Est GFR (MDRD) Af Amer Est GFR (MDRD) Non-Af BUN/Creatinine Ratio Glucose Calcium Phosphorus Magnesium Vancomycin Trough Random Vancomycin Hep Bs Antigen Pending Hep Bs Antibody Hep B Core Total Ab Pending POC Glucose 150 H 08/01/19 08/02/19 08/02/19 23:25 04:20 04:20 WBC RBC Hgb Hct MCV MCH MCHC RDW Std Deviation RDW Coeff of Kimberlee Plt Count MPV Immature Gran % (Auto) Neut % (Auto) Lymph % (Auto) [place] % (Auto) Eos % (Auto) Baso % (Auto) Absolute Neuts (auto) Absolute Lymphs (auto) Nucleated RBC % Differential Comment Platelet Estimate Hypochromasia Anisocytosis Macrocytosis APTT 28.8 Sodium Potassium Chloride Carbon Dioxide Anion Gap BUN Creatinine Estim Creat Clear Calc Est GFR (MDRD) Af Amer Est GFR (MDRD) Non-Af BUN/Creatinine Ratio Glucose Calcium Phosphorus Magnesium Vancomycin Trough Random Vancomycin 24.5 H Hep Bs Antigen Hep Bs Antibody Hep B Core Total Ab POC Glucose 179 H 08/02/19 08/02/19 04:20 04:20 WBC 18.2 H RBC 2.63 L Hgb 7.7 L Hct 25.0 L MCV 95.1 MCH 29.3 MCHC 30.8 L D RDW Std Deviation 47.7 H RDW Coeff of Kimberlee 13.7 Plt Count 189 MPV 10.6 Immature Gran % (Auto) 2.000 H Neut % (Auto) 89.9 H Lymph % (Auto) 4.7 L [place] % (Auto) 3.3 Eos % (Auto) 0.0 Baso % (Auto) 0.1 Absolute Neuts (auto) 16.4 H Absolute Lymphs (auto) 0.86 Nucleated RBC % 0.2 Differential Comment Platelet Estimate ADEQUATE Hypochromasia 1+ Anisocytosis 1+ Macrocytosis APTT Sodium 134 L Potassium 4.3 Chloride 101 Carbon Dioxide 24.0 Anion Gap 9 BUN 51 H Creatinine 3.42 H Estim Creat Clear Calc 15.29 Est GFR (MDRD) Af Amer 18 L Est GFR (MDRD) Non-Af 15 L BUN/Creatinine Ratio 14.9 Glucose 208 H Calcium 6.7 L Phosphorus Magnesium Vancomycin Trough Random Vancomycin Hep Bs Antigen Hep Bs Antibody Hep B Core Total Ab POC Glucose Microbiology 07/29/19 Unknown Sputum, Induced/Lukens Gram Stain - Final 07/29/19 Unknown Sputum, Induced/Lukens Respiratory Culture - Final 07/29/19 22:00 Blood Culture (Wb) - Central Line Bacteria Detection (PCR) - Final Coag Negative Staph 07/29/19 22:00 Blood Culture (Wb) - Central Line Blood Culture - Preliminary Coag Negative Staph Clinical Impression(s) from Imaging Studies Chest X-Ray 08/01/19 14:17 IMPRESSION: Left-sided temporary dialysis catheter as been placed with the tip at the junction of the superior vena cava and right atrium. There has been no change since prior study. Electronically Signed: Sunil Encinas, at 15:08 EDT , Service support , Medical Necessity - Tobacco Use Smoking Status: Former smoker Assessment/Plan All Active Problems (Last Reviewed 07/29/19 @ 20:[address] Feliberto Rahman MD) Septic shock (Acute) Respiratory arrest before cardiac arrest (Acute) Acute kidney injury (Acute) Non-ST elevated myocardial infarction (Acute) RECOMMENDATIONS: 1. Continue hemodialysis per nephrology 2. Volume removal if possible with hemodialysis 3. Keep map greater than 65 4. Spontaneous breathing and awakening trials per protocol 5. Continue empiric antibiotics for now 6. Continue to monitor H&H. No active signs of bleeding. 7. Aggressive bowel regimen IMPRESSIONS: 1. Acute on chronic combined respiratory failure secondary to presumed COPD exacerbation secondary to pneumonia versus COVID-19 Unclear etiology of initial respiratory arrest. History is very limited at this time. Patient may have a viral etiology for COPD exacerbation, but work-up including COVID have been negative. Given advanced lung disease, infiltrates may not be present on initial imaging. Patient had significant secretions suggesting a COPD exacerbation. Cultures are currently reporting coag negative staph in blood, but no further fevers have been noted. Agree with empiric antibiotics to complete a 7-day course 2. Non-ST elevation [place] following cardiopulmonary arrest/shock Previous echocardiogram is dated, but showed normal function previously. Repeat echocardiogram shows no significant changes. Patient has had a significant elevation in troponin to 12.5. Clinical course would be suggestive of distributive shock secondary to sepsis versus arrest. Patient may need to be seen by cardiology for possible heart catheterization, but would attempt stabilization initially. Patient is currently on aspirin. Patient's hypotension did resolve with hemodialysis indicating probable acidosis complications from renal failure. Patient was transitioned from stress dose steroids to Solu-Medrol on 07/31/2019. Patient is significantly positive over the course of her hospitalization secondary to problem #3. 3. Acute kidney injury secondary to #1 and #2 Medical suspicion for prerenal etiology secondary to previous problems. Patient able to tolerate hemodialysis yesterday. Would defer timing of dialysis to nephrology, but would likely benefit from some volume removal if possible. Appreciate nephrology recommendations. Patient may require early hemodialysis. We will continue to monitor closely. 4. Possible anoxic brain injury Patient with extensive resuscitation time at outside facility. Unclear if patient truly had nonperfusion for that long as she does appear to be following commands appropriately. Cannot exclude memory issues, but patient is not acting like significant anoxic injury at this time. 5. History of noncompliance/obesity/AISSATOU Complicates care, management, recovery and prognosis. No BiPAP required as patient is currently intubated. Okay to continue tube feeds. Patient is on systemic anticoagulation. TIME: 34 minutes of critical care time spent addressing patient's respiratory failure, non-ST elevation [place], acute kidney injury, review of all data and collaboration with care team (5:25 AM to 6:25 AM) [phone]: [id number] Critical care first hour
[2019-08-02 07:52] LABS: Hepatitis B Surface Antibody Non-Reactive
[2019-08-02 08:21] LABS: Hepatitis B Surface Antigen Non-Reactive (Nonreactive)
[2019-08-02] MEDS: Aspirin 81 MG TAB.CHEW NG (08:31)
[2019-08-02] MEDS: Chlorhexidine 15 ML PO ×2 (08:31→23:03)
[2019-08-02] MEDS: Polyethylene Glycol 3350 17 GM PACKET GT (08:31)
[2019-08-02] MEDS: Senna Tablet 2 TABLET NG ×2 (08:31→23:02)
[2019-08-02] MEDS: 0.9% Saline Lock 10 ML Syringe IV ×2 (08:32→13:02)
[2019-08-02] MEDS: fentaNYL drip 100 ML 7.5 MCG IV ×2 (08:35→21:55)
[2019-08-02] MEDS: Famotidine 200 MG/20 ML MDV 20 MG in 0.9% Normal Saline (Pres. free 8 ML 300 MG IV ×2 (08:38→23:02)
--- NOTE | 2019-08-02 10:20 | CASEMGMT ---
RN CM Note: participated in ICU interdisciplinary rounds. Remains intubated, on vent 50%. Passed mobility screen. Pt is continuing with hemodialysis. Will follow of needs on dc. DC planning deferred @ this time. Will continue to follow and assist with transition of care. Kristie KIMBALL RN ACM.
--- NOTE | 2019-08-02 10:25 | PCM.RX.CS ---
Consult Pharmacy has been consulted to manage selected antiobiotic: Vancomycin Type of Consult: Follow-up Suspected Infection: Sepsis Prior Doses of Antibiotics Received/Current Regimen: last dose given: Vancomycin 1250mg IV on 07/31/19 0032 next dose on hold until Level <20 mg/L Labs: Sodium 134 mmol/L (136-145) L 08/02/19 04:20 Potassium 4.3 mmol/L (3.5-5.1) 08/02/19 04:20 Chloride 101 mmol/L (98-107) 08/02/19 04:20 Carbon Dioxide 24.0 mmol/L (21.0-32.0) 08/02/19 04:20 Anion Gap 9 (5-15) 08/02/19 04:20 BUN 51 mg/dL (7-18) H 08/02/19 04:20 Creatinine 3.42 mg/dL (0.55-1.02) H 08/02/19 04:20 Est GFR (MDRD) Af Amer 18 mL/min (>60) L 08/02/19 04:20 Est GFR (MDRD) Non-Af 15 mL/min (>60) L 08/02/19 04:20 BUN/Creatinine Ratio 14.9 RATIO (10-20) 08/02/19 04:20 Glucose 208 mg/dL (74-106) H 08/02/19 04:20 Vancomycin Trough 30.7 ug/mL (5.0-15.0) H 08/01/19 00:00 Random Vancomycin 24.5 ug/mL (0.0-15.0) H 08/02/19 04:20 Microbiology: Microbiology 07/29/19 22:00 Blood Culture (Wb) - Central Line Bacteria Detection (PCR) - Final Coag Negative Staph 07/29/19 22:00 Blood Culture (Wb) - Central Line Blood Culture - Final Staphylococcus warneri 07/29/19 Unknown Sputum, Induced/Lukens Gram Stain - Final 07/29/19 Unknown Sputum, Induced/Lukens Respiratory Culture - Final 07/29/19 21:00 Mucosa - Nasopharyngeal Respiratory Panel (PCR) - Final 07/30/19 03:30 Stool C. difficile DNA Amplification - Final 07/29/19 22:10 Urine Catheter - Jimenez Streptococcus pneumoniae Antigen (M - Final 07/29/19 22:10 Urine Catheter - Jimenez Legionella Antigen - Final Weight used for dosin kg Estimated Creatinine Clearance: 20 ml/min Goal Trough: 15-20 mcg/mL Pharmacy Plan for Drug Dosing: The patient's SCr has increased from admission from 1.81 to 3.77 on 08/01/19. Today has seen a slight decrease to 3.42. However, the vancomycin random level is still above 20mg/L. Another random vancomycin level will be drawn on 08/03/19 0600 and a dose will be ordered at that time. Pharmacy Service will continue to monitor and adjust dosing as required. Follow-Up Labs: Trough Other - vancomycin random level Labs to be done on [date and time ordered]: 08/03/19 0600
--- NOTE | 2019-08-02 11:01 | PN_ITS ---
Patient Problems: Active and Suspected Problems (Last Reviewed 07/29/19 @ 20:[address] Feliberto Rahman MD) Pneumonia (Suspected) Septic shock (Acute) Respiratory arrest before cardiac arrest (Acute) Acute kidney injury (Acute) Non-ST elevated myocardial infarction (Acute) Reason for Visit: pneumonia Subjective: FiO2 40%. On low dose norepi. Vitals/I&O's: Vital Signs Temp Pulse Resp BP Pulse Ox 36.1 C L 64 14 102/60 95 08/02/19 08:00 08/02/19 10:45 08/02/19 10:00 08/02/19 10:45 08/02/19 10:00 Oxygen Flow Rate (L/min) 40 Oxygen Delivery Method Mechanical Ventilator Weight: 102 kg Body Mass Index (BMI) 35.4 Intake and Output for Last 24 Hours 07/31/19 08/01/19 08/02/19 23:59 23:59 23:59 Intake Total 3515.67 / 4106.57 2668.67 / 2781.07 321.15 / 321.15 Output Total 100 / 150 2550 / 2650 175 / 175 Balance 3415.67 / 3956.57 118.67 / 131.07 146.15 / 146.15 General: - - awake. on HD. afebrile HEENT: Atraumatic, Normocephalic Oral: - - ETT and OG in place. Neck: No Nodes, Trachea Midline Lungs: Normal air movement, - - coarse breath sounds bilaterally. Cardiovascular: Regular rate, Regular Rhythm, Normal S1, Normal S2, No murmurs Abdomen: Bowel Sounds Present, Soft, Non Tender, Non-Distended, No Hepato- splenomegaly Extremities: No Calf Tenderness, Edema Microbiology Past 72 Hours 07/29/19 22:00 Blood Culture (Wb) - Central Line Bacteria Detection (PCR) - Final Coag Negative Staph 07/29/19 22:00 Blood Culture (Wb) - Central Line Blood Culture - Final Staphylococcus warneri 07/29/19 Unknown Sputum, Induced/Lukens Gram Stain - Final 07/29/19 Unknown Sputum, Induced/Lukens Respiratory Culture - Final Laboratory Results 08/01/19 12:18: POC Glucose 197 H 08/01/19 16:35: Hep Bs Antibody Non-Reactive 08/01/19 16:35: Hep B Core Total Ab Pending 08/01/19 16:35: Hep Bs Antigen Non-Reactive 08/01/19 17:03: POC Glucose 150 H 08/01/19 23:25: POC Glucose 179 H 08/02/19 04:20: Random Vancomycin 24.5 H 08/02/19 04:20: APTT 28.8 08/02/19 04:20: WBC 18.2 H, RBC 2.63 L, Hgb 7.7 L, Hct 25.0 L, MCV 95.1, MCH 29.3, MCHC 30.8 L D, RDW Std Deviation 47.7 H, RDW Coeff of Kimberlee 13.7, Plt Count 189, MPV 10.6, Immature Gran % (Auto) 2.000 H, Neut % (Auto) 89.9 H, Lymph % (Auto) 4.7 L, [place] % (Auto) 3.3, Eos % (Auto) 0.0, Baso % (Auto) 0.1, Absolute Neuts (auto) 16.4 H, Absolute Lymphs (auto) 0.86, Nucleated RBC % 0.2, Platelet Estimate ADEQUATE, Hypochromasia 1+, Anisocytosis 1+ 08/02/19 04:20: Sodium 134 L, Potassium 4.3, Chloride 101, Carbon Dioxide 24.0, Anion Gap 9, BUN 51 H, Creatinine 3.42 H, Estim Creat Clear Calc 15.29, Est GFR (MDRD) Af Amer 18 L, Est GFR (MDRD) Non-Af 15 L, BUN/Creatinine Ratio 14.9, Glucose 208 H, Calcium 6.7 L Current Medications Acetaminophen (Tylenol) 650 mg PO Q6H PRN PRN PRN Reason: Pain Score 1-10/Temp > 100.7 F Albuterol Sulfate (Ventolin Aerosols) 2.5 mg INHALATION Q2H PRN PRN PRN Reason: SOB &/OR WHEEZING Last Admin: 08/01/19 04:13 Dose: 2.5 mg Documented by: Albuterol/Ipratropium (Duoneb) 3 ml INHALATION Q4H.RT [facility] Last Admin: 08/02/19 06:21 Dose: 3 ml Documented by: Aspirin (Aspirin, Baby) 81 mg NG DAILY@0800 [facility] Last Admin: 08/02/19 08:31 Dose: 81 mg Documented by: Atorvastatin Calcium (Lipitor) 40 mg NG QHS [facility] Last Admin: 08/01/19 21:49 Dose: 40 mg Documented by: Chlorhexidine Gluconate () 15 ml PO BID [facility] Last Admin: 08/02/19 08:31 Dose: 15 ml Documented by: Dextrose (D50w Syringe) 0 gm IV X1 PRN; Protocol PRN Reason: Hypoglycemia Glucagon () 1 mg IM .X1 PRN PRN Reason: Hypoglycemia Norepinephrine Bitartrate 8 mg (/ Sodium Chloride) 250 mls @ 9.375 mls/hr CONT INF .[id number] [facility]; Protocol Last Titration: 08/02/19 10:45 Dose: 1 mcg/min, 1.9 mls/hr Documented by: Sodium Chloride () 250 mls @ 15 mls/hr IV .[id number] PRN PRN Reason: Saline Flush Sodium Chloride () 250 mls @ 15 mls/hr IV .[id number] PRN PRN Reason: Additional IVPB Infusion Last Infusion: 07/30/19 04:52 Dose: Infused Documented by: Levofloxacin (Levaquin Iv) 750 mg in 150 mls @ 100 mls/hr IV Q48 [facility] Last Infusion: 08/01/19 11:54 Dose: Infused Documented by: Vancomycin IV Pharmacy to Dose (1,500 ea/ Sodium Chloride) 500 mls @ 250 mls/hr IV Q12 PRN; Protocol Fentanyl () 100 mls @ 2.5 mls/hr IV UD [facility]; Protocol Last Titration: 08/02/19 10:00 Dose: 75 mcg/hr, 7.5 mls/hr Documented by: Famotidine 20 mg/ Sodium (Chloride) 10 mls @ 300 mls/hr IV Q12 [facility] Last Infusion: 08/02/19 08:40 Dose: Infused Documented by: Enteral Nutritional Formula (Vital Af 1.2 Vickey Liquid) 1,000 mls @ 55 mls/hr GT .[id number] [facility] Last Admin: 08/02/19 06:25 Dose: 55 mls/hr Documented by: Dexmedetomidine HCl 400 mcg/ (Sodium Chloride) 100 mls @ 12.75 mls/hr CONT INF .[id number] [facility]; Protocol Last Titration: 08/02/19 10:00 Dose: 0.5 mcg/kg/hr, 12.8 mls/hr Documented by: Insulin Human Lispro (Humalog Kwikpen (Bkc)) 0 unit SC Q6 [facility]; Protocol Last Admin: 08/02/19 05:42 Dose: 2 u Documented by: Methylprednisolone (Solu-Medrol) 40 mg IV Q8 TI Last Admin: 08/02/19 05:42 Dose: 40 mg Documented by: Ondansetron HCl (Zofran) 4 mg IV Q8H PRN PRN PRN Reason: NAUSEA/VOMITING Polyethylene Glycol (Miralax) 17 gm GT DAILY [facility] Last Admin: 08/02/19 08:31 Dose: 17 gm Documented by: Senna (Senokot) 2 tablet NG BID TI Last Admin: 08/02/19 08:31 Dose: 2 tablet Documented by: Sodium Chloride () 10 - 40 ml IV UD PRN PRN Reason: Multilumen/Hoffman Flush Last Admin: 08/02/19 08:32 Dose: 40 ml Documented by: Sodium Chloride (0.9% Nacl (Sterile) Posiflush) 10 - 40 ml IV UD PRN PRN Reason: Port access or dressing change Sodium Chloride () 10 - 40 ml IV UD PRN PRN Reason: SALINE FLUSH Last Admin: 07/30/19 08:10 Dose: 20 ml Documented by: STROKE Vital Signs/Narrative: Vital Signs Temp Pulse Resp BP Pulse Ox 08/02/19 10:45 64 102/60 08/02/19 10:30 66 97/54 L 08/02/19 10:15 70 94/55 L 08/02/19 10:00 67 14 88/53 L 95 08/02/19 09:00 83 12 97/59 L 93 08/02/19 08:00 36.1 C L 92 14 136/86 H 91 Medical Necessity - Tobacco Use Smoking Status: Former smoker Assessment/Plan All Active Problems (Last Reviewed 07/29/19 @ 20:[address] Feliberto Rahman MD) Septic shock (Acute) Respiratory arrest before cardiac arrest (Acute) Acute kidney injury (Acute) Non-ST elevated myocardial infarction (Acute) 1. septic shock: * etiology unclear. * On broad spectrum antibiotics. * Cultures thus far negative Follow up cultures (blood culture likely contaminant). * Etiology could be pneumonia, though CXR unremarkable, v other. * On methylpred and norepi. * COVID-19 negative. 2. acute hypoxic respiratory failure: * 2/2 AECOPD +/- pneumonia. * On vent * BDs, methylpred * CCM mgmt appreciated 3. cardiopulmonary arrest: * per discussion with ED doc at [facility]: Vtach to PEA then asystole before resumption of normal sinus. * Echo shows EF of 65% 4. KEITH: * unclear etiology, though suspected ATN * anuric * nephrology following and placed HD catheter on 07/31 * HD started on 07/31. Subsequent treatment on 08/01 5. NSTEMI: * On ASA * off heparin gtt * cardiology consult when more HDS 6. VTE prophylaxis: SQ heparin Inpatient E&M: 84835 Subs Hosp L2
--- NOTE | 2019-08-02 12:29 | DIALYSIS ---
Hemodialysis x 3 hours with 3K bath; Tolerated well. Removed = -1500; LIJ CVC lines reversed, no pull from arterial. Post tx LIJ capped & locked with heparin per lumen fill volume. Report given to RN. See dialysis flow sheet for details.
[2019-08-02 13:15] LABS: Bedside Glucose 175 mg/dL (70-110)
[2019-08-02 17:10] LABS: Bedside Glucose 181 mg/dL (70-110)
--- NOTE | 2019-08-02 17:34 | PN.RENAL_ITS ---
Patient Problems: Active and Suspected Problems (Last Reviewed 07/29/19 @ 20:[address] Feliberto Rahman MD) Pneumonia (Suspected) Septic shock (Acute) Respiratory arrest before cardiac arrest (Acute) Acute kidney injury (Acute) Non-ST elevated myocardial infarction (Acute) Subjective: remains intubated - Physical Exam Vitals/I&O's: Vital Signs Temp Pulse Resp BP Pulse Ox 97.8 F 68 14 115/59 L 94 08/02/19 16:00 08/02/19 17:00 08/02/19 17:00 08/02/19 17:00 08/02/19 17:00 Oxygen Flow Rate (L/min) 40 Oxygen Delivery Method Mechanical Ventilator Weight: 102 kg Body Mass Index (BMI) 35.4 Intake and Output for Last 24 Hours 07/31/19 08/01/19 08/02/19 23:59 23:59 23:59 Intake Total 3515.67 / 4106.57 2668.67 / 2781.07 1167.97 / 1167.97 Output Total 100 / 150 2550 / 2650 1725 / 1725 Balance 3415.67 / 3956.57 118.67 / 131.07 -557.03 / -557.03 General: Alert HEENT: Atraumatic, PERRLA, EOMI, Normocephalic Neck: Supple, No JVD, Negative Carotid Bruits Lungs: Clear to auscultation, Normal air movement Cardiovascular: Regular rate, No murmurs Abdomen: Bowel Sounds Present, Soft, Non Tender Extremities: No edema, Capillary Refill Less than 3 Seconds Skin: No rashes, No breakdown Musculoskeletal: No Tenderness to Palpation of Joints or Extremities Microbiology Past 72 Hours 07/29/19 22:00 Blood Culture (Wb) - Central Line Bacteria Detection (PCR) - Final Coag Negative Staph 07/29/19 22:00 Blood Culture (Wb) - Central Line Blood Culture - Final Staphylococcus warneri 07/29/19 Unknown Sputum, Induced/Lukens Gram Stain - Final 07/29/19 Unknown Sputum, Induced/Lukens Respiratory Culture - Final Laboratory Results 08/01/19 16:35: Hep Bs Antibody Non-Reactive 08/01/19 16:35: Hep Bs Antigen Non-Reactive 08/01/19 23:25: POC Glucose 179 H 08/02/19 04:20: Random Vancomycin 24.5 H 08/02/19 04:20: APTT 28.8 08/02/19 04:20: WBC 18.2 H, RBC 2.63 L, Hgb 7.7 L, Hct 25.0 L, MCV 95.1, MCH 29.3, MCHC 30.8 L D, RDW Std Deviation 47.7 H, RDW Coeff of Kimberlee 13.7, Plt Count 189, MPV 10.6, Immature Gran % (Auto) 2.000 H, Neut % (Auto) 89.9 H, Lymph % (Auto) 4.7 L, [place] % (Auto) 3.3, Eos % (Auto) 0.0, Baso % (Auto) 0.1, Absolute Neuts (auto) 16.4 H, Absolute Lymphs (auto) 0.86, Nucleated RBC % 0.2, Platelet Estimate ADEQUATE, Hypochromasia 1+, Anisocytosis 1+ 08/02/19 04:20: Sodium 134 L, Potassium 4.3, Chloride 101, Carbon Dioxide 24.0, Anion Gap 9, BUN 51 H, Creatinine 3.42 H, Estim Creat Clear Calc 15.29, Est GFR (MDRD) Af Amer 18 L, Est GFR (MDRD) Non-Af 15 L, BUN/Creatinine Ratio 14.9, Glucose 208 H, Calcium 6.7 L 08/02/19 12:57: POC Glucose 175 H 08/02/19 16:59: POC Glucose 181 H Current Medications Acetaminophen (Tylenol) 650 mg PO Q6H PRN PRN PRN Reason: Pain Score 1-10/Temp > 100.7 F Albuterol Sulfate (Ventolin Aerosols) 2.5 mg INHALATION Q2H PRN PRN PRN Reason: SOB &/OR WHEEZING Last Admin: 08/01/19 04:13 Dose: 2.5 mg Documented by: Albuterol/Ipratropium (Duoneb) 3 ml INHALATION Q4H.RT [facility] Last Admin: 08/02/19 15:22 Dose: 3 ml Documented by: Aspirin (Aspirin, Baby) 81 mg NG DAILY@0800 [facility] Last Admin: 08/02/19 08:31 Dose: 81 mg Documented by: Atorvastatin Calcium (Lipitor) 40 mg NG QHS [facility] Last Admin: 08/01/19 21:49 Dose: 40 mg Documented by: Chlorhexidine Gluconate () 15 ml PO BID TI Last Admin: 08/02/19 08:31 Dose: 15 ml Documented by: Dextrose (D50w Syringe) 0 gm IV X1 PRN; Protocol PRN Reason: Hypoglycemia Glucagon () 1 mg IM .X1 PRN PRN Reason: Hypoglycemia Heparin Sodium (Porcine) (Heparin Na) 5,000 unit SC Q12 TI Norepinephrine Bitartrate 8 mg (/ Sodium Chloride) 250 mls @ 9.375 mls/hr CONT INF .[id number] [facility]; Protocol Last Titration: 08/02/19 17:00 Dose: 0 mcg/min, 0 mls/hr Documented by: Sodium Chloride () 250 mls @ 15 mls/hr IV .[id number] PRN PRN Reason: Saline Flush Sodium Chloride () 250 mls @ 15 mls/hr IV .[id number] PRN PRN Reason: Additional IVPB Infusion Last Infusion: 07/30/19 04:52 Dose: Infused Documented by: Levofloxacin (Levaquin Iv) 750 mg in 150 mls @ 100 mls/hr IV Q48 [facility] Last Infusion: 08/01/19 11:54 Dose: Infused Documented by: Vancomycin IV Pharmacy to Dose (1,500 ea/ Sodium Chloride) 500 mls @ 250 mls/hr IV Q12 PRN; Protocol Fentanyl () 100 mls @ 2.5 mls/hr IV UD [facility]; Protocol Last Titration: 08/02/19 17:00 Dose: 75 mcg/hr, 7.5 mls/hr Documented by: Famotidine 20 mg/ Sodium (Chloride) 10 mls @ 300 mls/hr IV Q12 [facility] Last Infusion: 08/02/19 08:40 Dose: Infused Documented by: Enteral Nutritional Formula (Vital Af 1.2 Vickey Liquid) 1,000 mls @ 55 mls/hr GT .[id number] [facility] Last Admin: 08/02/19 06:25 Dose: 55 mls/hr Documented by: Dexmedetomidine HCl 400 mcg/ (Sodium Chloride) 100 mls @ 12.75 mls/hr CONT INF .Q7H51M [facility]; Protocol Last Titration: 08/02/19 17:00 Dose: 0.2 mcg/kg/hr, 5.1 mls/hr Documented by: Insulin Human Lispro (Humalog Kwikpen (Bkc)) 0 unit SC Q6 [facility]; Protocol Last Admin: 08/02/19 17:02 Dose: 1 u Documented by: Methylprednisolone (Solu-Medrol) 40 mg IV Q8 TI Last Admin: 08/02/19 13:02 Dose: 40 mg Documented by: Ondansetron HCl (Zofran) 4 mg IV Q8H PRN PRN PRN Reason: NAUSEA/VOMITING Polyethylene Glycol (Miralax) 17 gm GT DAILY [facility] Last Admin: 08/02/19 08:31 Dose: 17 gm Documented by: Senna (Senokot) 2 tablet NG BID TI Last Admin: 08/02/19 08:31 Dose: 2 tablet Documented by: Sodium Chloride () 10 - 40 ml IV UD PRN PRN Reason: Multilumen/Hoffman Flush Last Admin: 08/02/19 13:02 Dose: 30 ml Documented by: Sodium Chloride (0.9% Nacl (Sterile) Posiflush) 10 - 40 ml IV UD PRN PRN Reason: Port access or dressing change Sodium Chloride () 10 - 40 ml IV UD PRN PRN Reason: SALINE FLUSH Last Admin: 07/30/19 08:10 Dose: 20 ml Documented by: Medical Necessity - Tobacco Use Smoking Status: Former smoker Assessment/Plan All Active Problems (Last Reviewed 07/29/19 @ 20:[address] Feliberto Rahman MD) Septic shock (Acute) Respiratory arrest before cardiac arrest (Acute) Acute kidney injury (Acute) Non-ST elevated myocardial infarction (Acute) Acute renal failure. No prior kidney disease as per records. Most likely ATN in the setting of prolonged cardiac arrest. She has been anuric since admission. BUN, creatinine are worse. Urine output remains very poor. Borderline hyperkalemia, volume overload. Failed spontaneous breathing trial. HD today. will evaluate for dialysis again tomorrow. appears edematous on exam.
[2019-08-02] MEDS: Atorvastatin Calcium 40 MG Tablet NG (23:02)
[2019-08-02] MEDS: Heparin Injection (Vial) 5,000 UNIT/ML VIAL 5000 UNIT SC (23:03)
[2019-08-02 23:11] LABS: Bedside Glucose 191 mg/dL (70-110)
[2019-08-03] VITALS (42 sets, daily range): BP systolic 97–203; BP diastolic 48–94; PULSE 66–116; RESP 13–21; TEMP 36.1–37.2; O2SAT 90–99
[2019-08-03] MEDS: Ipratropium/Albuterol Sulfate 3 ML AMPUL.NEB INHALATION ×6 (02:45→22:55)
[2019-08-03] MEDS: Albuterol 2.5 MG/3 ML VIAL.NEB. INHALATION (05:13)
[2019-08-03 05:40] LABS: Absolute Lymphocyte Count 0.83 X10^3/uL (0.83-4.51); Absolute Neutrophil Count 17.3 X10^3/uL (2.0-7.7); Basophil# 0.03 X10^3/uL; Basophil% 0.2 % (0-1); Hematocrit 26.7 % (37-47); Hemoglobin 8.3 g/dL (12.0-15.0); Lymphocyte # 0.83 X10^3/ul (4.0); Lymphocyte % 4.2 % (19-41); Mean Corp Hgb Conc 31.1 g/dL (32-36); Mean Corpuscular Hgb 29.2 pg (27.0-32.0); Mean Platelet Vol. 10.7 fl (6.2-12.0); Monocyte# 1.07 X10^3/uL; Monocyte% 5.5 % (0-10); NRBC Flagged by Analyzer 0.2 % (0-5); Neutrophil # 17.29 X10^3/uL (2.7-7.7); Neutrophil % 88.5 % (47-70); POSITIVE MORPHOLOGY YES; Platelet Count 199 K/mm3 (150-450); RBC Distribution Width CV 13.5 % (11.6-14.6); RBC Distribution Width SD 46.5 fl (35.1-43.9); Red Blood Count 2.84 M/mm3 (4.2-5.4); White Blood Count 19.5 K/mm3 (4.4-11.0)
[2019-08-03 05:47] LABS: Differential Indicated SCAN CRITERIA MET
[2019-08-03 05:56] LABS: Anion Gap 9 (5-15); BUN 59 mg/dL (7-18); BUN/Creat Ratio 17.2 RATIO (10-20); Calcium,Total 7.4 mg/dL (8.5-10.1); Chloride 99 mmol/L (98-107); Creatinine, Serum 3.44 mg/dL (0.55-1.02); EST Glomerular Filtration Rate 15 mL/min (>60); Est Glom Filt Rate - Afr Amer 18 mL/min (>60); Estimated Creatinine Clearance 15.21 ml/min; Glucose 238 mg/dL (74-106); Potassium 4.7 mmol/L (3.5-5.1); Sodium Level 132 mmol/L (136-145)
[2019-08-03 06:04] LABS: Vancomycin, Random Level 19.2 ug/mL (0.0-15.0)
--- NOTE | 2019-08-03 06:16 | PCM.RX.CS ---
Consult Pharmacy has been consulted to manage selected antiobiotic: Vancomycin Type of Consult: Follow-up Suspected Infection: Sepsis Prior Doses of Antibiotics Received/Current Regimen: Medications Vancomycin HCl 1,500 mg/ (Sodium Chloride) 530 mls @ 250 mls/hr IV X1 ONE Stop: 08/03/19 12:07 Labs: Sodium 132 mmol/L (136-145) L 08/03/19 05:30 Potassium 4.7 mmol/L (3.5-5.1) 08/03/19 05:30 Chloride 99 mmol/L (98-107) 08/03/19 05:30 Carbon Dioxide 24.0 mmol/L (21.0-32.0) 08/03/19 05:30 Anion Gap 9 (5-15) 08/03/19 05:30 BUN 59 mg/dL (7-18) H 08/03/19 05:30 Creatinine 3.44 mg/dL (0.55-1.02) H 08/03/19 05:30 Est GFR (MDRD) Af Amer 18 mL/min (>60) L 08/03/19 05:30 Est GFR (MDRD) Non-Af 15 mL/min (>60) L 08/03/19 05:30 BUN/Creatinine Ratio 17.2 RATIO (10-20) 08/03/19 05:30 Glucose 238 mg/dL (74-106) H 08/03/19 05:30 Vancomycin Trough 30.7 ug/mL (5.0-15.0) H 08/01/19 00:00 Random Vancomycin 19.2 ug/mL (0.0-15.0) H 08/03/19 05:30 Microbiology: Microbiology 07/29/19 22:00 Blood Culture (Wb) - Central Line Bacteria Detection (PCR) - Final Coag Negative Staph 07/29/19 22:00 Blood Culture (Wb) - Central Line Blood Culture - Final Staphylococcus warneri 07/29/19 Unknown Sputum, Induced/Lukens Gram Stain - Final 07/29/19 Unknown Sputum, Induced/Lukens Respiratory Culture - Final 07/29/19 21:00 Mucosa - Nasopharyngeal Respiratory Panel (PCR) - Final 07/30/19 03:30 Stool C. difficile DNA Amplification - Final 07/29/19 22:10 Urine Catheter - Jimenez Streptococcus pneumoniae Antigen (M - Final 07/29/19 22:10 Urine Catheter - Jim[place] Legionella Antigen - Final Weight used for dosin kg Estimated Creatinine Clearance: 15.2 Goal Trough: 15-20 mcg/mL Pharmacy Plan for Drug Dosing: Random vancomycin level drawn 08/03/19 @0530 finally fell below 20, at 19.2. Will give a one-time 1500mg dose this morning and re-draw a random level 08/05/19 to determine further dosing. Pharmacy Service will continue to monitor and adjust dosing as required. Follow-Up Labs: Trough Vancomycin - random Labs to be done on [date and time ordered]: 08/05/19 @0600
[2019-08-03 06:21] LABS: Differential Comment SCANNED
--- NOTE | 2019-08-03 07:34 | PCM.PN.INT ---
Subjective: Patient did okay overnight. No acute issues were reported. This morning during spontaneous breathing trial, patient did well for approximately 45 minutes. Then patient became abruptly hypertensive, tachypneic and desaturated. Sedation was reinitiated. Patient did have dialysis yesterday with no complications. General: - - Intubated. Agitated on my evaluation shortly after spontaneous breathing trial ended. Obese. Appears older than stated age. HEENT: Atraumatic, PERRLA, EOMI, Normocephalic, - - No scleral icterus or injection noted Oral: Moist Mucosa, No Gingival or Mucosal Lesions/ Ulcerations Neck: Supple, No Nodes, Trachea Midline, - - Bilateral neck lines are clean, dry and intact Lungs: No rhonchi, No rales, Diminished, Wheezes, - - Symmetric expansion Cardiovascular: Regular rate, Regular Rhythm, Normal S1, Normal S2, No murmurs, No rub noted, No Gallop Abdomen: Bowel Sounds Present, Soft, Non Tender, Non-Distended, Obese Extremities: No cyanosis, Capillary Refill Less than 3 Seconds, Clubbing, Edema Skin: - - No change compared to previous Musculoskeletal: No Tenderness to Palpation of Joints or Extremities Lymphatic: No Cervical, Supraclavicular, or Inguinal Adenopathy Neurological: Cranial nerves II-XII grossly intact, Neuro grossly intact, Motor Exam 5/5 strength throughout Psych/Mental Status: Anxious, Impulsive, Restless Vital Signs Temp Pulse Resp BP Pulse Ox 36.1 C L 115 H 21 H 203/80 H 90 08/03/19 00:00 08/03/19 06:00 08/03/19 06:00 08/03/19 06:00 08/03/19 06:00 Oxygen Flow Rate (L/min) 40 Oxygen Delivery Method Mechanical Ventilator Weight: 101 kg Body Mass Index (BMI) 35.4 Intake and Output for Last 24 Hours 08/01/19 08/02/19 08/03/19 23:59 23:59 23:59 Intake Total 2668.67 / 2781.07 1253.56 / 1586.16 606.53 / 606.53 Output Total 2550 / 2650 1725 / 1825 200 / 200 Balance 118.67 / 131.07 -471.44 / -238.84 406.53 / 406.53 Labs (Last 48 Hours) 05/04/2108/01/19 08/01/19 12:18 16:35 16:35 WBC RBC Hgb Hct MCV MCH MCHC RDW Std Deviation RDW Coeff of Kimberlee Plt Count MPV Immature Gran % (Auto) Neut % (Auto) Lymph % (Auto) [place] % (Auto) Eos % (Auto) Baso % (Auto) Absolute Neuts (auto) Absolute Lymphs (auto) Nucleated RBC % Differential Comment Platelet Estimate Hypochromasia Anisocytosis APTT Sodium Potassium Chloride Carbon Dioxide Anion Gap BUN Creatinine Estim Creat Clear Calc Est GFR (MDRD) Af Amer Est GFR (MDRD) Non-Af BUN/Creatinine Ratio Glucose Calcium Random Vancomycin Hep Bs Antigen Hep Bs Antibody Non-Reactive Hep B Core Total Ab Pending POC Glucose 197 H 08/01/19 08/01/19 08/01/19 16:35 17:03 23:25 WBC RBC Hgb Hct MCV MCH MCHC RDW Std Deviation RDW Coeff of Kimberlee Plt Count MPV Immature Gran % (Auto) Neut % (Auto) Lymph % (Auto) [place] % (Auto) Eos % (Auto) Baso % (Auto) Absolute Neuts (auto) Absolute Lymphs (auto) Nucleated RBC % Differential Comment Platelet Estimate Hypochromasia Anisocytosis APTT Sodium Potassium Chloride Carbon Dioxide Anion Gap BUN Creatinine Estim Creat Clear Calc Est GFR (MDRD) Af Amer Est GFR (MDRD) Non-Af BUN/Creatinine Ratio Glucose Calcium Random Vancomycin Hep Bs Antigen Non-Reactive Hep Bs Antibody Hep B Core Total Ab POC Glucose 150 H 179 H 08/02/19 08/02/19 08/02/19 04:20 04:20 04:20 WBC 18.2 H RBC 2.63 L Hgb 7.7 L Hct 25.0 L MCV 95.1 MCH 29.3 MCHC 30.8 L D RDW Std Deviation 47.7 H RDW Coeff of Kimberlee 13.7 Plt Count 189 MPV 10.6 Immature Gran % (Auto) 2.000 H Neut % (Auto) 89.9 H Lymph % (Auto) 4.7 L [place] % (Auto) 3.3 Eos % (Auto) 0.0 Baso % (Auto) 0.1 Absolute Neuts (auto) 16.4 H Absolute Lymphs (auto) 0.86 Nucleated RBC % 0.2 Differential Comment Platelet Estimate ADEQUATE Hypochromasia 1+ Anisocytosis 1+ APTT 28.8 Sodium Potassium Chloride Carbon Dioxide Anion Gap BUN Creatinine Estim Creat Clear Calc Est GFR (MDRD) Af Amer Est GFR (MDRD) Non-Af BUN/Creatinine Ratio Glucose Calcium Random Vancomycin 24.5 H Hep Bs Antigen Hep Bs Antibody Hep B Core Total Ab POC Glucose 08/02/19 08/02/19 08/02/19 04:20 12:57 16:59 WBC RBC Hgb Hct MCV MCH MCHC RDW Std Deviation RDW Coeff of Kimberlee Plt Count MPV Immature Gran % (Auto) Neut % (Auto) Lymph % (Auto) [place] % (Auto) Eos % (Auto) Baso % (Auto) Absolute Neuts (auto) Absolute Lymphs (auto) Nucleated RBC % Differential Comment Platelet Estimate Hypochromasia Anisocytosis APTT Sodium 134 L Potassium 4.3 Chloride 101 Carbon Dioxide 24.0 Anion Gap 9 BUN 51 H Creatinine 3.42 H Estim Creat Clear Calc 15.29 Est GFR (MDRD) Af Amer 18 L Est GFR (MDRD) Non-Af 15 L BUN/Creatinine Ratio 14.9 Glucose 208 H Calcium 6.7 L Random Vancomycin Hep Bs Antigen Hep Bs Antibody Hep B Core Total Ab POC Glucose 175 H 181 H 08/02/19 08/03/19 08/03/19 22:55 05:30 05:30 WBC 19.5 H RBC 2.84 L Hgb 8.3 L Hct 26.7 L MCV 94.0 MCH 29.2 MCHC 31.1 L RDW Std Deviation 46.5 H RDW Coeff of Kimberlee 13.5 Plt Count 199 MPV 10.7 Immature Gran % (Auto) 1.600 H Neut % (Auto) 88.5 H Lymph % (Auto) 4.2 L [place] % (Auto) 5.5 Eos % (Auto) 0.0 Baso % (Auto) 0.2 Absolute Neuts (auto) 17.3 H Absolute Lymphs (auto) 0.83 Nucleated RBC % 0.2 Differential Comment SCANNED Platelet Estimate Hypochromasia Anisocytosis APTT Sodium Potassium Chloride Carbon Dioxide Anion Gap BUN Creatinine Estim Creat Clear Calc Est GFR (MDRD) Af Amer Est GFR (MDRD) Non-Af BUN/Creatinine Ratio Glucose Calcium Random Vancomycin 19.2 H Hep Bs Antigen Hep Bs Antibody Hep B Core Total Ab POC Glucose 191 H 08/03/19 05:30 WBC RBC Hgb Hct MCV MCH MCHC RDW Std Deviation RDW Coeff of Kimberlee Plt Count MPV Immature Gran % (Auto) Neut % (Auto) Lymph % (Auto) [place] % (Auto) Eos % (Auto) Baso % (Auto) Absolute Neuts (auto) Absolute Lymphs (auto) Nucleated RBC % Differential Comment Platelet Estimate Hypochromasia Anisocytosis APTT Sodium 132 L Potassium 4.7 Chloride 99 Carbon Dioxide 24.0 Anion Gap 9 BUN 59 H Creatinine 3.44 H Estim Creat Clear Calc 15.21 Est GFR (MDRD) Af Amer 18 L Est GFR (MDRD) Non-Af 15 L BUN/Creatinine Ratio 17.2 Glucose 238 H Calcium 7.4 L Random Vancomycin Hep Bs Antigen Hep Bs Antibody Hep B Core Total Ab POC Glucose Microbiology 07/29/19 22:00 Blood Culture (Wb) - Central Line Bacteria Detection (PCR) - Final Coag Negative Staph 07/29/19 22:00 Blood Culture (Wb) - Central Line Blood Culture - Final Staphylococcus warneri 07/29/19 Unknown Sputum, Induced/Lukens Gram Stain - Final 07/29/19 Unknown Sputum, Induced/Lukens Respiratory Culture - Final Medical Necessity - Tobacco Use Smoking Status: Former smoker Assessment/Plan All Active Problems (Last Reviewed 07/29/19 @ 20:[address] Feliberto Rahman MD) Septic shock (Acute) Respiratory arrest before cardiac arrest (Acute) Acute kidney injury (Acute) Non-ST elevated myocardial infarction (Acute) RECOMMENDATIONS: 1. Continue hemodialysis per nephrology 2. Volume removal if possible with hemodialysis 3. Okay to discontinue Levophed off the MAY 4. Spontaneous breathing and awakening trials per protocol 5. Continue Levophed with plans to complete a 10-day course 6. Continue to monitor H&H. No active signs of bleeding. 7. Aggressive bowel regimen 8. Spontaneous breathing and awakening trials per protocol IMPRESSIONS: 1. Acute on chronic combined respiratory failure secondary to presumed COPD exacerbation secondary to pneumonia versus COVID-19 Unclear etiology of initial respiratory arrest. History is very limited at this time. Patient may have a viral etiology for COPD exacerbation, but work-up including COVID have been negative. Given advanced lung disease, infiltrates may not be present on initial imaging. Patient had significant secretions suggesting a COPD exacerbation. Cultures are currently reporting coag negative staph in blood, but no further fevers have been noted. Agree with empiric antibiotics to complete a 10-day course. Patient with significantly depressed lung function at baseline (FEV1 26%). May require higher levels of Precedex to complete trial as anxiety will lead to depressed respiratory mechanics 2. Non-ST elevation WA following cardiopulmonary arrest/shock Previous echocardiogram is dated, but showed normal function previously. Repeat echocardiogram shows no significant changes. Patient has had a significant elevation in troponin to 12.5. Clinical course would be suggestive of distributive shock secondary to sepsis versus arrest. Patient may need to be seen by cardiology for possible heart catheterization, but would attempt stabilization initially. Patient is currently on aspirin. Patient's hypotension did resolve with hemodialysis indicating probable acidosis complications from renal failure. Patient was transitioned from stress dose steroids to Solu-Medrol on 07/31/2019. Patient is significantly positive over the course of her hospitalization secondary to problem #3. Patient has had some volume removal with dialysis 3. Acute kidney injury secondary to #1 and #2 Medical suspicion for prerenal etiology secondary to previous problems. Patient able to tolerate hemodialysis yesterday. Would defer timing of dialysis to nephrology, but would likely benefit from continued volume removal if possible. Appreciate nephrology recommendations. We will continue to monitor closely. 4. Possible anoxic brain injury Patient with extensive resuscitation time at outside facility. Unclear if patient truly had nonperfusion for that long as she does appear to be following commands appropriately. Cannot exclude memory issues, but patient is not acting like significant anoxic injury at this time. 5. History of noncompliance/obesity/AISSATOU Complicates care, management, recovery and prognosis. No BiPAP required as patient is currently intubated. Okay to continue tube feeds. Patient is on systemic anticoagulation. TIME: 31 minutes of critical care time spent addressing patient's respiratory failure, non-ST elevation WA, acute kidney injury, review of all data and collaboration with care team (6:30 AM to 7:30 AM) 9xxxx: [id number] Critical care first hour
--- NOTE | 2019-08-03 08:57 | PN_ITS ---
Patient Problems: Active and Suspected Problems (Last Reviewed 07/29/19 @ 20:[address] Feliberto Rahman MD) Pneumonia (Suspected) Septic shock (Acute) Respiratory arrest before cardiac arrest (Acute) Acute kidney injury (Acute) Non-ST elevated myocardial infarction (Acute) Subjective: Patient seen and examined. She remains intubated. She has been unable to be weaned off the vent as she gets agitated during spontaneous breathing trial. No acute events overnight as per discussion with her nurse. Labs and vitals reviewed. Patient has remained hemodynamically stable. Sodium is 132 today. Creatinine is 3.44 and white cell count is down to 19.5. She is in cumulative positive balance by 9.4 L. She is currently on tube feeding. Vitals/I&O's: Vital Signs Temp Pulse Resp BP Pulse Ox 97.0 F L 72 14 116/52 L 96 08/03/19 00:00 08/03/19 08:00 08/03/19 08:00 08/03/19 08:00 08/03/19 08:00 Oxygen Flow Rate (L/min) 40 Oxygen Delivery Method Mechanical Ventilator Weight: 222 lb 10.67 oz Body Mass Index (BMI) 35.4 Intake and Output for Last 24 Hours 08/01/19 08/02/19 08/03/19 23:59 23:59 23:59 Intake Total 2668.67 / 2781.07 1253.56 / 1586.16 641.93 / 641.93 Output Total 2550 / 2650 1725 / 1825 200 / 200 Balance 118.67 / 131.07 -471.44 / -238.84 441.93 / 441.93 General: Alert, - - sedated, RASS score is 0 HEENT: Atraumatic, PERRLA, EOMI, Normocephalic Oral: Moist Mucosa Neck: Supple, No JVD, Negative Carotid Bruits Lungs: Clear to auscultation, Normal air movement Cardiovascular: Regular rate, Regular Rhythm, Normal S1, Normal S2, No murmurs Abdomen: Bowel Sounds Present, Soft, Non Tender, Non-Distended, No Hepato- splenomegaly Extremities: No clubbing, No cyanosis, No edema, Capillary Refill Less than 3 Seconds Skin: No rashes, No breakdown Musculoskeletal: No Tenderness to Palpation of Joints or Extremities Lymphatic: No Cervical, Supraclavicular, or Inguinal Adenopathy Neurological: Cranial nerves II-XII grossly intact, Neuro grossly intact, - Psych/Mental Status: Flat Affect, - - sedated, RASS score is 0 Microbiology Past 72 Hours 07/29/19 22:00 Blood Culture (Wb) - Central Line Bacteria Detection (PCR) - Final Coag Negative Staph 07/29/19 22:00 Blood Culture (Wb) - Central Line Blood Culture - Final Staphylococcus warneri 07/29/19 Unknown Sputum, Induced/Lukens Gram Stain - Final 07/29/19 Unknown Sputum, Induced/Lukens Respiratory Culture - Final Laboratory Results 08/02/19 12:57: POC Glucose 175 H 08/02/19 16:59: POC Glucose 181 H 08/02/19 22:55: POC Glucose 191 H 08/03/19 05:30: Random Vancomycin 19.2 H 08/03/19 05:30: WBC 19.5 H, RBC 2.84 L, Hgb 8.3 L, Hct 26.7 L, MCV 94.0, MCH 29.2, MCHC 31.1 L, RDW Std Deviation 46.5 H, RDW Coeff of Kimberlee 13.5, Plt Count 199, MPV 10.7, Immature Gran % (Auto) 1.600 H, Neut % (Auto) 88.5 H, Lymph % (Auto) 4.2 L, [place] % (Auto) 5.5, Eos % (Auto) 0.0, Baso % (Auto) 0.2, Absolute Neuts (auto) 17.3 H, Absolute Lymphs (auto) 0.83, Nucleated RBC % 0.2, Differential Comment SCANNED 08/03/19 05:30: Sodium 132 L, Potassium 4.7, Chloride 99, Carbon Dioxide 24.0, Anion Gap 9, BUN 59 H, Creatinine 3.44 H, Estim Creat Clear Calc 15.21, Est GFR (MDRD) Af Amer 18 L, Est GFR (MDRD) Non-Af 15 L, BUN/Creatinine Ratio 17.2, Glucose 238 H, Calcium 7.4 L Diagnostic Data Chest X-Ray 08/01/19 14:17 IMPRESSION: Left-sided temporary dialysis catheter as been placed with the tip at the junction of the superior vena cava and right atrium. There has been no change since prior study. Electronically Signed: Sunil Encinas, at 15:08 EDT , Service support , Current Medications Acetaminophen (Tylenol) 650 mg PO Q6H PRN PRN PRN Reason: Pain Score 1-10/Temp > 100.7 F Albuterol Sulfate (Ventolin Aerosols) 2.5 mg INHALATION Q2H PRN PRN PRN Reason: SOB &/OR WHEEZING Last Admin: 08/03/19 05:13 Dose: 2.5 mg Documented by: Albuterol/Ipratropium (Duoneb) 3 ml INHALATION Q4H.RT [facility] Last Admin: 08/03/19 02:45 Dose: 3 ml Documented by: Aspirin (Aspirin, Baby) 81 mg NG DAILY@0800 [facility] Last Admin: 08/02/19 08:31 Dose: 81 mg Documented by: Atorvastatin Calcium (Lipitor) 40 mg NG QHS [facility] Last Admin: 08/02/19 23:02 Dose: 40 mg Documented by: Chlorhexidine Gluconate () 15 ml PO BID [facility] Last Admin: 08/02/19 23:03 Dose: 15 ml Documented by: Dextrose (D50w Syringe) 0 gm IV X1 PRN; Protocol PRN Reason: Hypoglycemia Glucagon () 1 mg IM .X1 PRN PRN Reason: Hypoglycemia Heparin Sodium (Porcine) (Heparin Na) 5,000 unit SC Q12 [facility] Last Admin: 08/02/19 23:03 Dose: 5,000 unit Documented by: Sodium Chloride () 250 mls @ 15 mls/hr IV .[id number] PRN PRN Reason: Saline Flush Sodium Chloride () 250 mls @ 15 mls/hr IV .[id number] PRN PRN Reason: Additional IVPB Infusion Last Infusion: 07/30/19 04:52 Dose: Infused Documented by: Levofloxacin (Levaquin Iv) 750 mg in 150 mls @ 100 mls/hr IV Q48 [facility] Last Infusion: 08/01/19 11:54 Dose: Infused Documented by: Vancomycin IV Pharmacy to Dose (1,500 ea/ Sodium Chloride) 500 mls @ 250 mls/hr IV Q12 PRN; Protocol Fentanyl () 100 mls @ 2.5 mls/hr IV UD [facility]; Protocol Last Titration: 08/03/19 08:00 Dose: 75 mcg/hr, 7.5 mls/hr Documented by: Famotidine 20 mg/ Sodium (Chloride) 10 mls @ 300 mls/hr IV Q12 [facility] Last Infusion: 08/02/19 23:18 Dose: Infused Documented by: Enteral Nutritional Formula (Vital Af 1.2 Vickey Liquid) 1,000 mls @ 55 mls/hr GT .[id number] [facility] Last Admin: 08/02/19 06:25 Dose: 55 mls/hr Documented by: Dexmedetomidine HCl 400 mcg/ (Sodium Chloride) 100 mls @ 12.75 mls/hr CONT INF .[id number] [facility]; Protocol Last Titration: 08/03/19 08:00 Dose: 0.4 mcg/kg/hr, 10.2 mls/hr Documented by: Vancomycin HCl 1,500 mg/ (Sodium Chloride) 530 mls @ 250 mls/hr IV X1 ONE Stop: 08/03/19 12:07 Insulin Human Lispro (Humalog Kwikpen (Bkc)) 0 unit SC Q6 [facility]; Protocol Last Admin: 08/02/19 23:07 Dose: 2 u Documented by: Methylprednisolone (Solu-Medrol) 40 mg IV Q8 [facility] Last Admin: 08/03/19 05:24 Dose: 40 mg Documented by: Ondansetron HCl (Zofran) 4 mg IV Q8H PRN PRN PRN Reason: NAUSEA/VOMITING Polyethylene Glycol (Miralax) 17 gm GT DAILY [facility] Last Admin: 08/02/19 08:31 Dose: 17 gm Documented by: Senna (Senokot) 2 tablet NG BID [facility] Last Admin: 08/02/19 23:02 Dose: 2 tablet Documented by: Sodium Chloride () 10 - 40 ml IV UD PRN PRN Reason: Multilumen/Hoffman Flush Last Admin: 08/02/19 13:02 Dose: 30 ml Documented by: Sodium Chloride (0.9% Nacl (Sterile) Posiflush) 10 - 40 ml IV UD PRN PRN Reason: Port access or dressing change Sodium Chloride () 10 - 40 ml IV UD PRN PRN Reason: SALINE FLUSH Last Admin: 07/30/19 08:10 Dose: 20 ml Documented by: STROKE Vital Signs/Narrative: Vital Signs Pulse Resp BP Pulse Ox 08/03/19 08:00 72 14 116/52 L 96 08/03/19 07:38 73 08/03/19 07:00 75 14 114/48 L 95 08/03/19 06:00 115 H 21 H 203/80 H 90 08/03/19 05:53 96 18 96 08/03/19 05:13 88 18 08/03/19 05:01 13 08/03/19 05:00 66 14 102/50 L 93 Medical Necessity - Tobacco Use Smoking Status: Former smoker Assessment/Plan All Active Problems (Last Reviewed 07/29/19 @ 20:[address] Feliberto Rahman MD) Septic shock (Acute) Respiratory arrest before cardiac arrest (Acute) Acute kidney injury (Acute) Non-ST elevated myocardial infarction (Acute) 1.Septic shock * has been weaned off levophed * cause of septic shock is unclear * cultures are negative; COVID screen was negative. * on IV vancomycin and levofloxacin * 2. Acute on chronic hypoxic and hypercapnic respiratory failure due to COPD exacerbation and pneumonia * still intubated. Failed spontaneous breathing trial this morning as she became very agitated * pulmonolgy on board * has an FEV1 of 26%, per pulmo * Continue breathing treatments with bronchodilators. On IV Solu-Medrol. Trial of breathing treatments again tomorrow. * 3. Nonstemi and cardiopulmonary arrest * troponiin trended up to 12.5. cardiology on board; to have cardiac cath after shes medically stable * had cardiac arrest at outside facility and needed CPR * on aspirin. * 2D echo showed Ef of 65% * 4. KEITH * currentlyo n dialysis; received dialysis yseterday * etiology unclear. * nephrology on board; for dialysis as per nephrology * 5. Hyponatremia: Sodium is 132. Will monitor. May be due to fluid overload as patient is undergoing dialysis for BKA. 6. Anemia: Hemoglobin is 8.3. Stable. No evidence of bleeding. Nutrition: on tube feeding. GI prophylaxis; famotidine DVT prophylaxis; heparin Inpatient E&M: [id number] [facility] L3
[2019-08-03] MEDS: Chlorhexidine 15 ML PO ×2 (09:29→22:08)
[2019-08-03] MEDS: levoFLOXacin IV 750 MG/150 ML BAG 100 MG IV (09:30)
[2019-08-03] MEDS: Famotidine 200 MG/20 ML MDV 20 MG in 0.9% Normal Saline (Pres. free 8 ML 300 MG IV ×2 (09:31→22:07)
[2019-08-03] MEDS: Heparin Injection (Vial) 5,000 UNIT/ML VIAL 5000 UNIT SC ×2 (09:33→22:07)
[2019-08-03] MEDS: Polyethylene Glycol 3350 17 GM PACKET GT (09:33)
[2019-08-03] MEDS: Senna Tablet 2 TABLET NG ×2 (09:34→22:06)
[2019-08-03] MEDS: fentaNYL drip 100 ML 7.5 MCG IV (11:48)
[2019-08-03 12:16] LABS: Bedside Glucose 140 mg/dL (70-110)
[2019-08-03] MEDS: Heparin 10,000 UNITS/10 ML Vial IV (13:53)
[2019-08-03 14:07] LABS: Hepatitis B Core Ab Total Negative (Negative)
--- NOTE | 2019-08-03 14:10 | DIALYSIS ---
Hemodialysis x 3 hours today (3rd tx) -1900ml off. Unable to remove more fluid d/t hypotension. CVC closed with heparin to each lumen fill volume, dressing D/I. See flowsheet for details. Report to Fabiana ROGERS.
[2019-08-03] MEDS: Aspirin 81 MG TAB.CHEW NG (15:01)
[2019-08-03] MEDS: 0.9% Saline Lock 10 ML Syringe IV ×2 (16:10→22:07)
--- NOTE | 2019-08-03 16:33 | NURSING ---
education re chronic illness deferred till acute illness resolving
--- NOTE | 2019-08-03 16:53 | PCM.PN.REN ---
Patient Problems: Active and Suspected Problems (Last Reviewed 07/29/19 @ 20:[address] Feliberto Rahman MD) Pneumonia (Suspected) Septic shock (Acute) Respiratory arrest before cardiac arrest (Acute) Acute kidney injury (Acute) Non-ST elevated myocardial infarction (Acute) Subjective: no new events - Physical Exam Vitals/I&O's: Vital Signs Temp Pulse Resp BP Pulse Ox 97.6 F L 95 15 118/63 96 08/03/19 16:00 08/03/19 16:00 08/03/19 16:00 08/03/19 16:00 08/03/19 16:00 Oxygen Flow Rate (L/min) 40 Oxygen Delivery Method Mechanical Ventilator Weight: 101 kg Body Mass Index (BMI) 35.4 Intake and Output for Last 24 Hours 08/01/19 08/02/19 08/03/19 23:59 23:59 23:59 Intake Total 2668.67 / 2781.07 1253.56 / 1586.16 962.40 / 962.40 Output Total 2550 / 2650 1725 / 1825 2150 / 2150 Balance 118.67 / 131.07 -471.44 / -238.84 -1187.60 / -1187.60 General: No apparent distress HEENT: Atraumatic, PERRLA, EOMI, Normocephalic Neck: Supple, No JVD, Negative Carotid Bruits Lungs: Clear to auscultation, Normal air movement Cardiovascular: Regular rate, No murmurs Abdomen: Bowel Sounds Present, Soft, Non Tender Extremities: No edema, Capillary Refill Less than 3 Seconds Skin: No rashes, No breakdown Musculoskeletal: No Tenderness to Palpation of Joints or Extremities Microbiology Past 72 Hours 07/29/19 22:00 Blood Culture (Wb) - Central Line Bacteria Detection (PCR) - Final Coag Negative Staph 07/29/19 22:00 Blood Culture (Wb) - Central Line Blood Culture - Final Staphylococcus warneri 07/29/19 Unknown Sputum, Induced/Lukens Gram Stain - Final 07/29/19 Unknown Sputum, Induced/Lukens Respiratory Culture - Final Laboratory Results 08/01/19 16:35: Hep B Core Total Ab Negative 08/02/19 16:59: POC Glucose 181 H 08/02/19 22:55: POC Glucose 191 H 08/03/19 05:30: Random Vancomycin 19.2 H 08/03/19 05:30: WBC 19.5 H, RBC 2.84 L, Hgb 8.3 L, Hct 26.7 L, MCV 94.0, MCH 29.2, MCHC 31.1 L, RDW Std Deviation 46.5 H, RDW Coeff of Kimberlee 13.5, Plt Count 199, MPV 10.7, Immature Gran % (Auto) 1.600 H, Neut % (Auto) 88.5 H, Lymph % (Auto) 4.2 L, [place] % (Auto) 5.5, Eos % (Auto) 0.0, Baso % (Auto) 0.2, Absolute Neuts (auto) 17.3 H, Absolute Lymphs (auto) 0.83, Nucleated RBC % 0.2, Differential Comment SCANNED 08/03/19 05:30: Sodium 132 L, Potassium 4.7, Chloride 99, Carbon Dioxide 24.0, Anion Gap 9, BUN 59 H, Creatinine 3.44 H, Estim Creat Clear Calc 15.21, Est GFR (MDRD) Af Amer 18 L, Est GFR (MDRD) Non-Af 15 L, BUN/Creatinine Ratio 17.2, Glucose 238 H, Calcium 7.4 L 08/03/19 12:10: POC Glucose 140 H Current Medications Acetaminophen (Tylenol) 650 mg PO Q6H PRN PRN PRN Reason: Pain Score 1-10/Temp > 100.7 F Albuterol Sulfate (Ventolin Aerosols) 2.5 mg INHALATION Q2H PRN PRN PRN Reason: SOB &/OR WHEEZING Last Admin: 08/03/19 05:13 Dose: 2.5 mg Documented by: Albuterol/Ipratropium (Duoneb) 3 ml INHALATION Q4H.RT [facility] Last Admin: 08/03/19 14:56 Dose: 3 ml Documented by: Aspirin (Aspirin, Baby) 81 mg NG DAILY@0800 [facility] Last Admin: 08/03/19 15:01 Dose: 81 mg Documented by: Atorvastatin Calcium (Lipitor) 40 mg NG QHS [facility] Last Admin: 08/02/19 23:02 Dose: 40 mg Documented by: Chlorhexidine Gluconate () 15 ml PO BID [facility] Last Admin: 08/03/19 09:29 Dose: 15 ml Documented by: Dextrose (D50w Syringe) 0 gm IV X1 PRN; Protocol PRN Reason: Hypoglycemia Glucagon () 1 mg IM .X1 PRN PRN Reason: Hypoglycemia Heparin Sodium (Porcine) (Heparin Na) 5,000 unit SC Q12 TI Last Admin: 08/03/19 09:33 Dose: 5,000 unit Documented by: Sodium Chloride () 250 mls @ 15 mls/hr IV .[id number] PRN PRN Reason: Saline Flush Last Admin: 08/03/19 09:52 Dose: 15 mls/hr Documented by: Sodium Chloride () 250 mls @ 15 mls/hr IV .[id number] PRN PRN Reason: Additional IVPB Infusion Last Infusion: 07/30/19 04:52 Dose: Infused Documented by: Levofloxacin (Levaquin Iv) 750 mg in 150 mls @ 100 mls/hr IV Q48 TI Last Infusion: 08/03/19 14:47 Dose: 100 mls/hr Documented by: Vancomycin IV Pharmacy to Dose (1,500 ea/ Sodium Chloride) 500 mls @ 250 mls/hr IV Q12 PRN; Protocol Fentanyl () 100 mls @ 2.5 mls/hr IV UD TI; Protocol Last Titration: 08/03/19 12:00 Dose: 750 mcg/hr, 75 mls/hr Documented by: Famotidine 20 mg/ Sodium (Chloride) 10 mls @ 300 mls/hr IV Q12 TI Last Infusion: 08/03/19 09:40 Dose: Infused Documented by: Enteral Nutritional Formula (Vital Af 1.2 Vickey Liquid) 1,000 mls @ 55 mls/hr GT .[id number] [facility] Last Admin: 08/02/19 06:25 Dose: 55 mls/hr Documented by: Dexmedetomidine HCl 400 mcg/ (Sodium Chloride) 100 mls @ 12.75 mls/hr CONT INF .[id number] TI; Protocol Last Titration: 08/03/19 12:30 Dose: 0.5 mcg/kg/hr, 12.8 mls/hr Documented by: Norepinephrine Bitartrate 8 mg (/ Sodium Chloride) 250 mls @ 9.375 mls/hr CONT INF .[id number] TI; Protocol Last Admin: 08/03/19 15:01 Dose: Not Given Documented by: Insulin Human Lispro (Humalog Kwikpen (Bkc)) 0 unit SC Q6 [facility]; Protocol Last Admin: 08/03/19 12:36 Dose: Not Given Documented by: Methylprednisolone (Solu-Medrol) 40 mg IV Q8 [facility] Last Admin: 08/03/19 15:02 Dose: 40 mg Documented by: Ondansetron HCl (Zofran) 4 mg IV Q8H PRN PRN PRN Reason: NAUSEA/VOMITING Polyethylene Glycol (Miralax) 17 gm GT DAILY [facility] Last Admin: 08/03/19 09:33 Dose: 17 gm Documented by: Senna (Senokot) 2 tablet NG BID [facility] Last Admin: 08/03/19 09:34 Dose: 2 tablet Documented by: Sodium Chloride () 10 - 40 ml IV UD PRN PRN Reason: Multilumen/Hoffman Flush Last Admin: 08/03/19 16:10 Dose: 20 ml Documented by: Sodium Chloride (0.9% Nacl (Sterile) Posiflush) 10 - 40 ml IV UD PRN PRN Reason: Port access or dressing change Sodium Chloride () 10 - 40 ml IV UD PRN PRN Reason: SALINE FLUSH Last Admin: 07/30/19 08:10 Dose: 20 ml Documented by: Medical Necessity - Tobacco Use Smoking Status: Former smoker Assessment/Plan All Active Problems (Last Reviewed 07/29/19 @ 20:[address] Feliberto Rahman MD) Septic shock (Acute) Respiratory arrest before cardiac arrest (Acute) Acute kidney injury (Acute) Non-ST elevated myocardial infarction (Acute) Acute renal failure. No prior kidney disease as per records. Most likely ATN in the setting of prolonged cardiac arrest. She has been anuric since admission. BUN, creatinine are worse. Urine output remains very poor. Borderline hyperkalemia, volume overload. Failed spontaneous breathing trial. HD today. appears edematous on exam. respiratory failure. advanced pneumonia. remains on vent.
[2019-08-03] MEDS: Vital AF 1.2 Cal Liquid 1,000 ML 55 ML GT (17:57)
[2019-08-03] MEDS: Insulin Lispro 100 UNIT/ML INSULN.PEN SC ×2 (18:04→23:37)
[2019-08-03 18:35] LABS: Bedside Glucose 226 mg/dL (70-110)
[2019-08-03] MEDS: Atorvastatin Calcium 40 MG Tablet NG (22:07)
[2019-08-03 23:45] LABS: Bedside Glucose 270 mg/dL (70-110)
[2019-08-04] VITALS (43 sets, daily range): BP systolic 98–201; BP diastolic 46–103; PULSE 65–125; RESP 14–27; TEMP 36.1–37.2; O2SAT 74–99
[2019-08-04] MEDS: fentaNYL drip 100 ML 7.5 MCG IV ×2 (01:09→17:44)
[2019-08-04] MEDS: Ipratropium/Albuterol Sulfate 3 ML AMPUL.NEB INHALATION ×6 (03:45→22:05)
[2019-08-04 04:22] LABS: Absolute Lymphocyte Count 0.64 X10^3/uL (0.83-4.51); Absolute Neutrophil Count 15.1 X10^3/uL (2.0-7.7); Basophil# 0.02 X10^3/uL; Basophil% 0.1 % (0-1); Hematocrit 25.5 % (37-47); Hemoglobin 7.9 g/dL (12.0-15.0); Lymphocyte # 0.64 X10^3/ul (4.0); Lymphocyte % 3.7 % (19-41); Mean Corpuscular Hgb 28.9 pg (27.0-32.0); Mean Corpuscular Volume 93.4 fL (81-99); Mean Platelet Vol. 10.4 fl (6.2-12.0); Monocyte# 1.15 X10^3/uL; Monocyte% 6.7 % (0-10); NRBC Flagged by Analyzer 0.1 % (0-5); Neutrophil # 15.12 X10^3/uL (2.7-7.7); Platelet Count 170 K/mm3 (150-450); RBC Distribution Width CV 13.7 % (11.6-14.6); RBC Distribution Width SD 46.2 fl (35.1-43.9); Red Blood Count 2.73 M/mm3 (4.2-5.4); White Blood Count 17.2 K/mm3 (4.4-11.0)
[2019-08-04 04:36] LABS: Anion Gap 7 (5-15); BUN 56 mg/dL (7-18); BUN/Creat Ratio 18.9 RATIO (10-20); Calcium,Total 7.3 mg/dL (8.5-10.1); Chloride 99 mmol/L (98-107); Creatinine, Serum 2.96 mg/dL (0.55-1.02); EST Glomerular Filtration Rate 17 mL/min (>60); Est Glom Filt Rate - Afr Amer 21 mL/min (>60); Estimated Creatinine Clearance 17.67 ml/min; Glucose 286 mg/dL (74-106); Potassium 4.5 mmol/L (3.5-5.1); Sodium Level 131 mmol/L (136-145)
[2019-08-04] MEDS: Insulin Lispro 100 UNIT/ML INSULN.PEN SC ×3 (05:34→17:15)
[2019-08-04] MEDS: 0.9% Saline Lock 10 ML Syringe IV ×3 (05:35→11:34)
[2019-08-04] MEDS: TITRATION PARAMETER CHANGE 1 EACH IV (05:52)
--- NOTE | 2019-08-04 06:26 | PN_ITS ---
Subjective: The patient was seen and examined at the bedside this morning. Events from the last 24 hours have been reviewed. The patient is currently afebrile, hemodynamically stable and maintaining appropriate oxygen saturations on spontaneous mode mechanical ventilation with an FiO2 requirement of 35%. While the patient has done well this morning on her spontaneous breathing trial, her oxygen saturations are marginal in the high 80s. The patient is currently documented to be overall net +10.3 L for the hospital admission. Objective: The patient's most recent lab work, culture data and imaging studies have all been personally reviewed. General: - - Remains intubated, sedated and mechanically ventilated. HEENT: Atraumatic, PERRLA, Normocephalic Oral: No Gingival or Mucosal Lesions/ Ulcerations, - - Endotracheal and OG tubes remain in place. Neck: Supple, No Nodes, Trachea Midline Lungs: No rhonchi, No wheeze, No rales, Diminished Cardiovascular: Regular rate, Regular Rhythm, Normal S1, Normal S2, No murmurs Abdomen: Bowel Sounds Present, Soft, Non Tender, Obese Extremities: No cyanosis, Clubbing, Edema Skin: No breakdown Musculoskeletal: No Muscle Wasting Lymphatic: No Cervical, Supraclavicular, or Inguinal Adenopathy Neurological: - - No focal neurological deficits. Currently sedated with a RASS of -1. Vital Signs Temp Pulse Resp BP Pulse Ox 97.5 F L 71 18 148/65 H 91 08/04/19 04:00 08/04/19 06:00 08/04/19 06:00 08/04/19 06:00 08/04/19 06:00 Oxygen Flow Rate (L/min) 40 Oxygen Delivery Method Mechanical Ventilator Weight: 221 lb 1.978 oz Body Mass Index (BMI) 35.4 Intake and Output for Last 24 Hours 08/02/19 08/03/19 08/04/19 23:59 23:59 23:59 Intake Total 1253.56 / 1586.16 2925.28 / 3034.41 733.07 / 733.07 Output Total 1725 / 1825 2275 / 2275 100 / 100 Balance -471.44 / -238.84 650.28 / 759.41 633.07 / 633.07 Labs (Last 48 Hours) 08/01/19 08/01/19 08/01/19 16:35 16:35 16:35 WBC RBC Hgb Hct MCV MCH MCHC RDW Std Deviation RDW Coeff of Kimberlee Plt Count MPV Immature Gran % (Auto) Neut % (Auto) Lymph % (Auto) [place] % (Auto) Eos % (Auto) Baso % (Auto) Absolute Neuts (auto) Absolute Lymphs (auto) Nucleated RBC % Differential Comment Sodium Potassium Chloride Carbon Dioxide Anion Gap BUN Creatinine Estim Creat Clear Calc Est GFR (MDRD) Af Amer Est GFR (MDRD) Non-Af BUN/Creatinine Ratio Glucose Calcium Random Vancomycin Hep Bs Antigen Non-Reactive Hep Bs Antibody Non-Reactive Hep B Core Total Ab Negative POC Glucose 08/02/19 08/02/19 08/02/19 12:57 16:59 22:55 WBC RBC Hgb Hct MCV MCH MCHC RDW Std Deviation RDW Coeff of Kimberlee Plt Count MPV Immature Gran % (Auto) Neut % (Auto) Lymph % (Auto) [place] % (Auto) Eos % (Auto) Baso % (Auto) Absolute Neuts (auto) Absolute Lymphs (auto) Nucleated RBC % Differential Comment Sodium Potassium Chloride Carbon Dioxide Anion Gap BUN Creatinine Estim Creat Clear Calc Est GFR (MDRD) Af Amer Est GFR (MDRD) Non-Af BUN/Creatinine Ratio Glucose Calcium Random Vancomycin Hep Bs Antigen Hep Bs Antibody Hep B Core Total Ab POC Glucose 175 H 181 H 191 H 08/03/19 08/03/19 08/03/19 05:30 05:30 05:30 WBC 19.5 H RBC 2.84 L Hgb 8.3 L Hct 26.7 L MCV 94.0 MCH 29.2 MCHC 31.1 L RDW Std Deviation 46.5 H RDW Coeff of Kimberlee 13.5 Plt Count 199 MPV 10.7 Immature Gran % (Auto) 1.600 H Neut % (Auto) 88.5 H Lymph % (Auto) 4.2 L [place] % (Auto) 5.5 Eos % (Auto) 0.0 Baso % (Auto) 0.2 Absolute Neuts (auto) 17.3 H Absolute Lymphs (auto) 0.83 Nucleated RBC % 0.2 Differential Comment SCANNED Sodium 132 L Potassium 4.7 Chloride 99 Carbon Dioxide 24.0 Anion Gap 9 BUN 59 H Creatinine 3.44 H Estim Creat Clear Calc 15.21 Est GFR (MDRD) Af Amer 18 L Est GFR (MDRD) Non-Af 15 L BUN/Creatinine Ratio 17.2 Glucose 238 H Calcium 7.4 L Random Vancomycin 19.2 H Hep Bs Antigen Hep Bs Antibody Hep B Core Total Ab POC Glucose 08/03/19 08/03/19 08/03/19 12:10 18:02 23:36 WBC RBC Hgb Hct MCV MCH MCHC RDW Std Deviation RDW Coeff of Kimberlee Plt Count MPV Immature Gran % (Auto) Neut % (Auto) Lymph % (Auto) [place] % (Auto) Eos % (Auto) Baso % (Auto) Absolute Neuts (auto) Absolute Lymphs (auto) Nucleated RBC % Differential Comment Sodium Potassium Chloride Carbon Dioxide Anion Gap BUN Creatinine Estim Creat Clear Calc Est GFR (MDRD) Af Amer Est GFR (MDRD) Non-Af BUN/Creatinine Ratio Glucose Calcium Random Vancomycin Hep Bs Antigen Hep Bs Antibody Hep B Core Total Ab POC Glucose 140 H 226 H 270 H 08/04/19 08/04/19 04:00 04:00 WBC 17.2 H RBC 2.73 L Hgb 7.9 L Hct 25.5 L MCV 93.4 MCH 28.9 MCHC 31.0 L RDW Std Deviation 46.2 H RDW Coeff of Kimberlee 13.7 Plt Count 170 MPV 10.4 Immature Gran % (Auto) 1.500 H Neut % (Auto) 88.0 H Lymph % (Auto) 3.7 L [place] % (Auto) 6.7 Eos % (Auto) 0.0 Baso % (Auto) 0.1 Absolute Neuts (auto) 15.1 H Absolute Lymphs (auto) 0.64 L Nucleated RBC % 0.1 Differential Comment Sodium 131 L Potassium 4.5 Chloride 99 Carbon Dioxide 25.0 Anion Gap 7 BUN 56 H Creatinine 2.96 H Estim Creat Clear Calc 17.67 Est GFR (MDRD) Af Amer 21 L Est GFR (MDRD) Non-Af 17 L BUN/Creatinine Ratio 18.9 Glucose 286 H Calcium 7.3 L Random Vancomycin Hep Bs Antigen Hep Bs Antibody Hep B Core Total Ab POC Glucose Microbiology 07/29/19 22:00 Blood Culture (Wb) - Central Line Bacteria Detection (PCR) - Final Coag Negative Staph 07/29/19 22:00 Blood Culture (Wb) - Central Line Blood Culture - Final Staphylococcus warneri Clinical Impression(s) from Imaging Studies Chest X-Ray 07/29/19 21:40 IMPRESSION: No acute disease status post OG tube and multiple line placement Electronically Signed: Kris Boggs MD at 21:58 EDT , Service support , Chest X-Ray 08/01/19 14:17 IMPRESSION: Left-sided temporary dialysis catheter as been placed with the tip at the junction of the superior vena cava and right atrium. There has been no change since prior study. Electronically Signed: Sunil Padillamarielena, at 15:08 EDT , Service support , Medical Necessity - Tobacco Use Smoking Status: Former smoker Assessment/Plan All Active Problems (Last Reviewed 07/29/19 @ 20:[address] Feliberto Rahman MD) Septic shock (Acute) Respiratory arrest before cardiac arrest (Acute) Acute kidney injury (Acute) Non-ST elevated myocardial infarction (Acute) RECOMMENDATIONS: 1. Continue current supportive measures with invasive mechanical ventilatory support. Wean FiO2 and PEEP to maintain oxygen saturations at or above 90%. 2. Continue scheduled bronchodilators. Wean IV steroids to 40 mg daily. 3. Continue hemodialysis per nephrology recommendations. 4. Continue empiric antimicrobials. 5. Continue appropriate ICU prophylaxis. 6. Resume tube feeds. 7. Goals of care discussion with patient's family. IMPRESSIONS: 1. Acute on chronic combined respiratory failure secondary to presumed COPD exacerbation secondary to pneumonia versus COVID-19 Unclear etiology of initial respiratory arrest. Patient may have a viral etiology for COPD exacerbation, but work-up including COVID have been negative. Given advanced lung disease, infiltrates may not be present on initial imaging. Patient had significant secretions suggesting a COPD exacerbation. Agree with empiric antibiotics to complete a 10-day course. Patient with significantly depressed lung function at baseline (FEV1 26%). Plan to have a goals of care discussion prior to consideration for extubation. 2. Non-ST elevation SD following cardiopulmonary arrest/shock Previous echocardiogram is dated, but showed normal function previously. Repeat echocardiogram shows no significant changes. Patient has had a significant elevation in troponin to 12.5. Clinical course would be suggestive of distributive shock secondary to sepsis versus arrest. Patient may need to be seen by cardiology for possible heart catheterization, but would attempt stabili zation initially. Patient is currently on aspirin. 3. Acute kidney injury secondary to #1 and #2 Medical suspicion for prerenal etiology secondary to previous problems. Continue hemodialysis support and volume optimization per nephrology recommendations. 4. History of noncompliance/obesity/AISSATOU Complicates care, management, recovery and prognosis. Okay to continue tube feeds. Patient is on systemic anticoagulation. TIME: 42 minutes of critical care time, independent of procedures, was spent addressing the patient's acute on chronic combined respiratory failure, COPD with exacerbation, non-ST elevation SD, acute kidney injury, review of all data and collaboration with the care team. [id number]) [id number] Critical care first hour
--- NOTE | 2019-08-04 06:48 | NURSING ---
, Simon, called- no answer, message left to return call.
[2019-08-04 06:50] LABS: Bedside Glucose 270 mg/dL (70-110)
--- NOTE | 2019-08-04 09:42 | PCM.PN.HOSP ---
Patient Problems: Active and Suspected Problems (Last Reviewed 07/29/19 @ 20:[address] Feliberto Rahman MD) Pneumonia (Suspected) Septic shock (Acute) Respiratory arrest before cardiac arrest (Acute) Acute kidney injury (Acute) Non-ST elevated myocardial infarction (Acute) Subjective: Patient seen and examined. She remains intubated and was undergoing spontaneous breathing trial at time of review. Unable to do review of systems as patient is intubated and RA SS score is 0. She has remained hemodynamically stable. Creatinine is down to 2.96 and white cell count is now 17.2. Hemoglobin is 7.9. Per discussion with talent management manager, plan is to discuss with patient's next of kin about goals of care as talent management manager that he does not think the patient will do well when she comes off the vent. Vitals/I&O's: Vital Signs Temp Pulse Resp BP Pulse Ox 97.5 F L 77 20 H 125/63 H 91 08/04/19 04:00 08/04/19 07:00 08/04/19 07:00 08/04/19 07:00 08/04/19 07:00 Oxygen Flow Rate (L/min) 40 Oxygen Delivery Method Mechanical Ventilator Weight: 221 lb 1.978 oz Body Mass Index (BMI) 35.4 Intake and Output for Last 24 Hours 08/02/19 08/03/19 08/04/19 23:59 23:59 23:59 Intake Total 1253.56 / 1586.16 2925.28 / 3034.41 824.01 / 824.01 Output Total 1725 / 1825 2275 / 2275 100 / 100 Balance -471.44 / -238.84 650.28 / 759.41 724.01 / 724.01 General: - - sedated, RASS score is 0 HEENT: Atraumatic, PERRLA, EOMI, Normocephalic Oral: Moist Mucosa Neck: Supple, No JVD, Negative Carotid Bruits Lungs: Clear to auscultation, Normal air movement,intubated Cardiovascular: Regular rate, Regular Rhythm, Normal S1, Normal S2, No murmurs Abdomen: Bowel Sounds Present, Soft, Non Tender, Non-Distended, No Hepato-splenomegaly Extremities: No clubbing, No cyanosis, No edema, Capillary Refill Less than 3 Seconds Skin: No rashes, No breakdown Musculoskeletal: No Tenderness to Palpation of Joints or Extremities Lymphatic: No Cervical, Supraclavicular, or Inguinal Adenopathy Neurological: Cranial nerves II-XII grossly intact, Neuro grossly intact, - Psych/Mental Status: Flat Affect, - - sedated, RASS score is 0 Microbiology Past 72 Hours 07/29/19 22:00 Blood Culture (Wb) - Central Line Bacteria Detection (PCR) - Final Coag Negative Staph 07/29/19 22:00 Blood Culture (Wb) - Central Line Blood Culture - Final Staphylococcus warneri 07/29/19 Unknown Sputum, Induced/Lukens Gram Stain - Final 07/29/19 Unknown Sputum, Induced/Lukens Respiratory Culture - Final Laboratory Results 08/01/19 16:35: Hep B Core Total Ab Negative 08/03/19 12:10: POC Glucose 140 H 08/03/19 18:02: POC Glucose 226 H 08/03/19 23:36: POC Glucose 270 H 08/04/19 04:00: WBC 17.2 H, RBC 2.73 L, Hgb 7.9 L, Hct 25.5 L, MCV 93.4, MCH 28.9, MCHC 31.0 L, RDW Std Deviation 46.2 H, RDW Coeff of Kimberlee 13.7, Plt Count 170, MPV 10.4, Immature Gran % (Auto) 1.500 H, Neut % (Auto) 88.0 H, Lymph % (Auto) 3.7 L, [place] % (Auto) 6.7, Eos % (Auto) 0.0, Baso % (Auto) 0.1, Absolute Neuts (auto) 15.1 H, Absolute Lymphs (auto) 0.64 L, Nucleated RBC % 0.1 08/04/19 04:00: Sodium 131 L, Potassium 4.5, Chloride 99, Carbon Dioxide 25.0, Anion Gap 7, BUN 56 H, Creatinine 2.96 H, Estim Creat Clear Calc 17.67, Est GFR (MDRD) Af Amer 21 L, Est GFR (MDRD) Non-Af 17 L, BUN/Creatinine Ratio 18.9, Glucose 286 H, Calcium 7.3 L 08/04/19 05:13: POC Glucose 270 H Current Medications Acetaminophen (Tylenol) 650 mg PO Q6H PRN PRN PRN Reason: Pain Score 1-10/Temp > 100.7 F Albuterol Sulfate (Ventolin Aerosols) 2.5 mg INHALATION Q2H PRN PRN PRN Reason: SOB &/OR WHEEZING Last Admin: 08/03/19 05:13 Dose: 2.5 mg Documented by: Albuterol/Ipratropium (Duoneb) 3 ml INHALATION Q4H.RT [facility] Last Admin: 08/04/19 06:28 Dose: 3 ml Documented by: Aspirin (Aspirin, Baby) 81 mg NG DAILY@0800 [facility] Last Admin: 08/03/19 15:01 Dose: 81 mg Documented by: Atorvastatin Calcium (Lipitor) 40 mg NG QHS [facility] Last Admin: 08/03/19 22:07 Dose: 40 mg Documented by: Chlorhexidine Gluconate () 15 ml PO BID [facility] Last Admin: 08/03/19 22:08 Dose: 15 ml Documented by: Dextrose (D50w Syringe) 0 gm IV X1 PRN; Protocol PRN Reason: Hypoglycemia Glucagon () 1 mg IM .X1 PRN PRN Reason: Hypoglycemia Heparin Sodium (Porcine) (Heparin Na) 5,000 unit SC Q12 [facility] Last Admin: 08/03/19 22:07 Dose: 5,000 unit Documented by: Sodium Chloride () 250 mls @ 15 mls/hr IV .[id number] PRN PRN Reason: Saline Flush Last Infusion: 08/03/19 19:45 Dose: 0 mls/hr Documented by: Sodium Chloride () 250 mls @ 15 mls/hr IV .[id number] PRN PRN Reason: Additional IVPB Infusion Last Infusion: 07/30/19 04:52 Dose: Infused Documented by: Levofloxacin (Levaquin Iv) 750 mg in 150 mls @ 100 mls/hr IV Q48 [facility] Last Infusion: 08/03/19 19:27 Dose: Infused Documented by: Vancomycin IV Pharmacy to Dose (1,500 ea/ Sodium Chloride) 500 mls @ 250 mls/hr IV Q12 PRN; Protocol Fentanyl () 100 mls @ 2.5 mls/hr IV UD [facility]; Protocol Last Titration: 08/04/19 08:00 Dose: 50 mcg/hr, 5 mls/hr Documented by: Famotidine 20 mg/ Sodium (Chloride) 10 mls @ 300 mls/hr IV Q12 [facility] Last Infusion: 08/03/19 22:31 Dose: Infused Documented by: Enteral Nutritional Formula (Vital Af 1.2 Vickey Liquid) 1,000 mls @ 55 mls/hr GT .[id number] [facility] Last Admin: 08/03/19 23:39 Dose: Not Given Documented by: Dexmedetomidine HCl 400 mcg/ (Sodium Chloride) 100 mls @ 12.538 mls/hr CONT INF .Q7H59M [facility]; Protocol Last Admin: 08/04/19 08:00 Dose: 1.5 mcg/kg/hr, 37.6 mls/hr Documented by: Insulin Human Lispro (Humalog Kwikpen (Bkc)) 0 unit SC Q6 [facility]; Protocol Last Admin: 08/04/19 05:34 Dose: 4 u Documented by: Methylprednisolone (Solu-Medrol) 40 mg IV DAILY [facility] Ondansetron HCl (Zofran) 4 mg IV Q8H PRN PRN PRN Reason: NAUSEA/VOMITING Polyethylene Glycol (Miralax) 17 gm GT DAILY [facility] Last Admin: 08/03/19 09:33 Dose: 17 gm Documented by: Senna (Senokot) 2 tablet NG BID [facility] Last Admin: 08/03/19 22:06 Dose: 2 tablet Documented by: Sodium Chloride () 10 - 40 ml IV UD PRN PRN Reason: Multilumen/Hoffman Flush Last Admin: 08/04/19 05:35 Dose: 20 ml Documented by: Sodium Chloride (0.9% Nacl (Sterile) Posiflush) 10 - 40 ml IV UD PRN PRN Reason: Port access or dressing change Sodium Chloride () 10 - 40 ml IV UD PRN PRN Reason: SALINE FLUSH Last Admin: 08/03/19 22:07 Dose: 10 ml Documented by: STROKE Vital Signs/Narrative: Vital Signs Pulse Resp BP Pulse Ox 08/04/19 07:00 77 20 H 125/63 H 91 08/04/19 06:28 74 20 H 90 08/04/19 06:00 71 18 148/65 H 91 Medical Necessity - Tobacco Use Smoking Status: Former smoker Assessment/Plan All Active Problems (Last Reviewed 07/29/19 @ 20:[address] Feliberto Rahman MD) Septic shock (Acute) Respiratory arrest before cardiac arrest (Acute) Acute kidney injury (Acute) Non-ST elevated myocardial infarction (Acute) 1.Septic shock has been weaned off levophed cause of septic shock is unclear cultures are negative; COVID screen was negative. on IV vancomycin and levofloxacin 2. Acute on chronic hypoxic and hypercapnic respiratory failure due to COPD exacerbation and pneumonia plan is for extubation today. Patient still on low dose fentanyl and precedex, so concern is she may not do well once she comes off vent. Manager Business Intelligence to discuss with patient's next of kin about goals of care and code status, in case she needs to be re-intubated. critical care on board. Continue breathing treatments with bronchodilators. On IV Solu-Medrol. Trial of breathing treatments again tomorrow. 3. Nonstemi and cardiopulmonary arrest troponiin trended up to 12.5. cardiology on board; to have cardiac cath after shes medically stable had cardiac arrest at outside facility and needed CPR on aspirin. 2D echo showed Ef of 65% 4. KEITH currentlyo n dialysis as needed. Cr today is 2.96 last had dialysis on 08/03/2019 with removal of 1.9L of fluid. etiology unclear. nephrology on board 5. Hyponatremia: Sodium is 131 today. Will monitor. 6. Anemia: Hemoglobin is 7.9 today. Stable. No evidence of bleeding. Nutrition: on tube feeding. GI prophylaxis; famotidine DVT prophylaxis; heparin Inpatient E&M: [id number] [facility] L3
[2019-08-04] MEDS: Aspirin 81 MG TAB.CHEW NG (09:57)
[2019-08-04] MEDS: Chlorhexidine 15 ML PO ×2 (09:57→22:14)
[2019-08-04] MEDS: Heparin Injection (Vial) 5,000 UNIT/ML VIAL 5000 UNIT SC ×2 (09:57→22:30)
[2019-08-04] MEDS: Polyethylene Glycol 3350 17 GM PACKET GT (09:58)
[2019-08-04] MEDS: Famotidine 200 MG/20 ML MDV 20 MG in 0.9% Normal Saline (Pres. free 8 ML 300 MG IV (11:27)
[2019-08-04] MEDS: Albuterol 2.5 MG/3 ML VIAL.NEB. INHALATION (11:34)
[2019-08-04 11:51] LABS: Bedside Glucose 187 mg/dL (70-110)
--- NOTE | 2019-08-04 12:00 | NURSING ---
pt suddenly diaphoretic, cyanotic, HR 135, R 36, SpO2 74%. returned to TV450, ACVC14, PEEP5. present in pt room. chest very tight, few audible breath sounds. albuterol tx given. sedation increased. pt gradually had return of color, improvement in VS, became restful. notified above.
--- NOTE | 2019-08-04 12:16 | CASEMGMT ---
RN CM Note. Participated in ICU interdisciplinary rounds. Pt remains on ventilator, 35% O2. Documented +10L fluid. Hemodialysis per nephrology recommendations. Continues on IV antibiotics, steroids, remains off levophed. Nursing completing family calls, no concerns for CM @ this time. DC planning deferred today. Kristie MEADEN RN ACM
--- NOTE | 2019-08-04 14:30 | NURSING ---
multiple phone calls in attempts to reach pt's this am. He returned call to [phone]. notified pt on CPAP trial, what that entails, wish to speak w/him re plan following extubation. He stated he'd come in. 1400 pt's at bedside. much discussion re pt wishes, trach/peg/ecf w/full code reintubation vs extubate to DNRCCA DNI. many questions answered, much reassurance given. Dr. Billings present in pt room. Mr. Dacosta states he will speak w/pt's sister and let us know his wishes.
[2019-08-04] MEDS: Vital AF 1.2 Cal Liquid 1,000 ML 55 ML GT (17:21)
--- NOTE | 2019-08-04 17:37 | PCM.PN.REN ---
Patient Problems: Active and Suspected Problems (Last Reviewed 07/29/19 @ 20:[address] Feliberto Rahman MD) Pneumonia (Suspected) Septic shock (Acute) Respiratory arrest before cardiac arrest (Acute) Acute kidney injury (Acute) Non-ST elevated myocardial infarction (Acute) Subjective: intubated - Physical Exam Vitals/I&O's: Vital Signs Temp Pulse Resp BP Pulse Ox 97 F L 70 14 135/51 H 95 08/04/19 12:00 08/04/19 14:00 08/04/19 14:00 08/04/19 14:00 08/04/19 14:00 Oxygen Flow Rate (L/min) 40 Oxygen Delivery Method Mechanical Ventilator Weight: 100.3 kg Body Mass Index (BMI) 35.4 Intake and Output for Last 24 Hours 08/02/19 08/03/19 08/04/19 23:59 23:59 23:59 Intake Total 1253.56 / 1586.16 2925.28 / 3034.41 1347.87 / 1347.87 Output Total 1725 / 1825 2275 / 2275 100 / 100 Balance -471.44 / -238.84 650.28 / 759.41 1247.87 / 1247.87 General: Alert, Oriented x3, Cooperative HEENT: Atraumatic, PERRLA, EOMI, Normocephalic Neck: Supple, No JVD, Negative Carotid Bruits Lungs: Clear to auscultation, Normal air movement Cardiovascular: Regular rate, No murmurs Abdomen: Bowel Sounds Present, Soft, Non Tender Extremities: No edema, Capillary Refill Less than 3 Seconds Skin: No rashes, No breakdown Musculoskeletal: No Tenderness to Palpation of Joints or Extremities Neurological: Cranial nerves II-XII grossly intact Psych/Mental Status: Normal Affect, Appropriate Microbiology Past 72 Hours 07/29/19 22:00 Blood Culture (Wb) - Central Line Bacteria Detection (PCR) - Final Coag Negative Staph 07/29/19 22:00 Blood Culture (Wb) - Central Line Blood Culture - Final Staphylococcus warneri Laboratory Results 08/03/19 18:02: POC Glucose 226 H 08/03/19 23:36: POC Glucose 270 H 08/04/19 04:00: WBC 17.2 H, RBC 2.73 L, Hgb 7.9 L, Hct 25.5 L, MCV 93.4, MCH 28.9, MCHC 31.0 L, RDW Std Deviation 46.2 H, RDW Coeff of Kimberlee 13.7, Plt Count 170, MPV 10.4, Immature Gran % (Auto) 1.500 H, Neut % (Auto) 88.0 H, Lymph % (Auto) 3.7 L, [place] % (Auto) 6.7, Eos % (Auto) 0.0, Baso % (Auto) 0.1, Absolute Neuts (auto) 15.1 H, Absolute Lymphs (auto) 0.64 L, Nucleated RBC % 0.1 08/04/19 04:00: Sodium 131 L, Potassium 4.5, Chloride 99, Carbon Dioxide 25.0, Anion Gap 7, BUN 56 H, Creatinine 2.96 H, Estim Creat Clear Calc 17.67, Est GFR (MDRD) Af Amer 21 L, Est GFR (MDRD) Non-Af 17 L, BUN/Creatinine Ratio 18.9, Glucose 286 H, Calcium 7.3 L 08/04/19 05:13: POC Glucose 270 H 08/04/19 11:43: POC Glucose 187 H Current Medications Acetaminophen (Tylenol) 650 mg PO Q6H PRN PRN PRN Reason: Pain Score 1-10/Temp > 100.7 F Albuterol Sulfate (Ventolin Aerosols) 2.5 mg INHALATION Q2H PRN PRN PRN Reason: SOB &/OR WHEEZING Last Admin: 08/04/19 11:34 Dose: 2.5 mg Documented by: Albuterol/Ipratropium (Duoneb) 3 ml INHALATION Q4H.RT [facility] Last Admin: 08/04/19 15:42 Dose: 3 ml Documented by: Aspirin (Aspirin, Baby) 81 mg NG DAILY@0800 [facility] Last Admin: 08/04/19 09:57 Dose: 81 mg Documented by: Atorvastatin Calcium (Lipitor) 40 mg NG QHS [facility] Last Admin: 08/03/19 22:07 Dose: 40 mg Documented by: Chlorhexidine Gluconate () 15 ml PO BID [facility] Last Admin: 08/04/19 09:57 Dose: 15 ml Documented by: Dextrose (D50w Syringe) 0 gm IV X1 PRN; Protocol PRN Reason: Hypoglycemia Glucagon () 1 mg IM .X1 PRN PRN Reason: Hypoglycemia Heparin Sodium (Porcine) (Heparin Na) 5,000 unit SC Q12 TI Last Admin: 08/04/19 09:57 Dose: 5,000 unit Documented by: Sodium Chloride () 250 mls @ 15 mls/hr IV .[id number] PRN PRN Reason: Saline Flush Last Infusion: 08/03/19 19:45 Dose: 0 mls/hr Documented by: Sodium Chloride () 250 mls @ 15 mls/hr IV .[id number] PRN PRN Reason: Additional IVPB Infusion Last Infusion: 07/30/19 04:52 Dose: Infused Documented by: Levofloxacin (Levaquin Iv) 750 mg in 150 mls @ 100 mls/hr IV Q48 TI Last Infusion: 08/03/19 19:27 Dose: Infused Documented by: Vancomycin IV Pharmacy to Dose (1,500 ea/ Sodium Chloride) 500 mls @ 250 mls/hr IV Q12 PRN; Protocol Fentanyl () 100 mls @ 2.5 mls/hr IV UD [facility]; Protocol Last Titration: 08/04/19 17:00 Dose: 75 mcg/hr, 7.5 mls/hr Documented by: Enteral Nutritional Formula (Vital Af 1.2 Vickey Liquid) 1,000 mls @ 55 mls/hr GT .[id number] [facility] Last Admin: 08/04/19 17:21 Dose: 55 mls/hr Documented by: Dexmedetomidine HCl 400 mcg/ (Sodium Chloride) 100 mls @ 12.538 mls/hr CONT INF .[id number] [facility]; Protocol Last Titration: 08/04/19 17:00 Dose: 1.5 mcg/kg/hr, 37.6 mls/hr Documented by: Famotidine 20 mg/ Sodium (Chloride) 10 mls @ 300 mls/hr IV Q24 [facility] Last Admin: 08/04/19 11:27 Dose: 300 mls/hr Documented by: Insulin Human Lispro (Humalog Kwikpen (Bkc)) 0 unit SC Q6 [facility]; Protocol Last Admin: 08/04/19 17:15 Dose: 2 u Documented by: Methylprednisolone (Solu-Medrol) 40 mg IV DAILY [facility] Ondansetron HCl (Zofran) 4 mg IV Q8H PRN PRN PRN Reason: NAUSEA/VOMITING Polyethylene Glycol (Miralax) 17 gm GT DAILY TI Last Admin: 08/04/19 09:58 Dose: 17 gm Documented by: Senna (Senokot) 2 tablet NG BID TI Last Admin: 08/04/19 09:58 Dose: Not Given Documented by: Sodium Chloride () 10 - 40 ml IV UD PRN PRN Reason: Multilumen/Hoffman Flush Last Admin: 08/04/19 09:59 Dose: 30 ml Documented by: Sodium Chloride (0.9% Nacl (Sterile) Posiflush) 10 - 40 ml IV UD PRN PRN Reason: Port access or dressing change Sodium Chloride () 10 - 40 ml IV UD PRN PRN Reason: SALINE FLUSH Last Admin: 08/04/19 11:34 Dose: 10 ml Documented by: Medical Necessity - Tobacco Use Smoking Status: Former smoker Assessment/Plan All Active Problems (Last Reviewed 07/29/19 @ 20:[address] Feliberto Rahman MD) Septic shock (Acute) Respiratory arrest before cardiac arrest (Acute) Acute kidney injury (Acute) Non-ST elevated myocardial infarction (Acute) Acute renal failure. No prior kidney disease as per records. Most likely ATN in the setting of prolonged cardiac arrest. She has been anuric since admission. BUN, creatinine are worse. Urine output remains very poor. Borderline hyperkalemia, volume overload. Failed spontaneous breathing trial. appears edematous on exam. respiratory failure. advanced pneumonia. remains on vent. discussed with Dr Billings poor prognosis from pulmonary standpoint family discussions about further management hold HD today
[2019-08-04 17:51] LABS: Bedside Glucose 191 mg/dL (70-110)
--- NOTE | 2019-08-04 19:10 | NURSING ---
education re chronic illness deferred till acute illness resolving
[2019-08-04] MEDS: Dexmedetomidine 1,000 mcg in 0.9% NS 240 mL 37.6 MCG CONT INF (20:30)
[2019-08-04] MEDS: Atorvastatin Calcium 40 MG Tablet NG (22:15)
[2019-08-04] MEDS: Senna Tablet 2 TABLET NG (22:15)
[2019-08-05] VITALS (28 sets, daily range): BP systolic 64–168; BP diastolic 16–101; PULSE 69–117; RESP 14–27; TEMP 36.1–36.6; O2SAT 82–100
[2019-08-05] MEDS: Insulin Lispro 100 UNIT/ML INSULN.PEN SC ×2 (00:31→06:01)
[2019-08-05 01:16] LABS: Bedside Glucose 206 mg/dL (70-110)
[2019-08-05] MEDS: Dexmedetomidine 1,000 mcg in 0.9% NS 240 mL 35.1 MCG CONT INF (04:52)
[2019-08-05 04:57] LABS: Absolute Lymphocyte Count 4.99 X10^3/uL (0.83-4.51); Absolute Neutrophil Count 19.9 X10^3/uL (2.0-7.7); Basophil# 0.06 X10^3/uL; Basophil% 0.2 % (0-1); Eosinophils% 0.4 % (0-5); Hematocrit 28.2 % (37-47); Hemoglobin 8.9 g/dL (12.0-15.0); Lymphocyte # 4.99 X10^3/ul (4.0); Lymphocyte % 17.8 % (19-41); Mean Corp Hgb Conc 31.6 g/dL (32-36); Mean Corpuscular Hgb 29.5 pg (27.0-32.0); Mean Corpuscular Volume 93.4 fL (81-99); Mean Platelet Vol. 11.1 fl (6.2-12.0); Monocyte# 2.13 X10^3/uL; Monocyte% 7.6 % (0-10); NRBC Flagged by Analyzer 0.1 % (0-5); Neutrophil # 19.93 X10^3/uL (2.7-7.7); POSITIVE DIFFERENTIAL YES; Platelet Count 249 K/mm3 (150-450); RBC Distribution Width SD 47.7 fl (35.1-43.9); Red Blood Count 3.02 M/mm3 (4.2-5.4)
[2019-08-05 05:13] LABS: Anion Gap 8 (5-15); BUN 82 mg/dL (7-18); BUN/Creat Ratio 20.5 RATIO (10-20); Calcium,Total 7.4 mg/dL (8.5-10.1); Chloride 101 mmol/L (98-107); EST Glomerular Filtration Rate 12 mL/min (>60); Est Glom Filt Rate - Afr Amer 15 mL/min (>60); Estimated Creatinine Clearance 13.08 ml/min; Glucose 189 mg/dL (74-106); Potassium 4.6 mmol/L (3.5-5.1); Sodium Level 134 mmol/L (136-145)
[2019-08-05 05:23] LABS: Differential Indicated SCAN CRITERIA MET
[2019-08-05 06:06] LABS: Bedside Glucose 172 mg/dL (70-110)
--- NOTE | 2019-08-05 06:09 | PCM.PN.INT ---
Subjective: The patient was seen and examined at the bedside this morning. Events from the last 24 hours have been reviewed. The patient is currently afebrile, hemodynamically stable and maintaining appropriate oxygen saturations on assist control mode mechanical ventilation with an FiO2 requirement of 40%. The patient's white blood cell count increased this morning to 20,000. Creatinine is also increased to 4.0. The patient is currently documented to be overall net +11.9 L for the hospital admission. The patient apparently became hypoxemic during attempts at weaning her sedation this morning. Therefore, a spontaneous breathing trial was not performed. I did meet yesterday with the patient's to discuss future goals of care. Following a discussion with the remainder of the family, the patient called in last evening and reported to the nursing staff that he did not wish to pursue tracheostomy and PEG tube placement, if the patient were to fail a trial of extubation. I once again spoke with the patient's this morning after rounds and explained her overall clinical status to him. He, at this time, stated that he wished to pursue comfort care measures, noting that he did not wish for his to suffer. Objective: The patient's most recent lab work, culture data and imaging studies have all been personally reviewed. Infectious work-up has been negative to date. General: - - Remains intubated, sedated and mechanically ventilated. HEENT: Atraumatic, Normocephalic Oral: No Gingival or Mucosal Lesions/ Ulcerations, - - Endotracheal and OG tubes remain in place Neck: Supple, No Nodes, Trachea Midline Lungs: Diminished, Tachypneic Cardiovascular: Normal S1, Normal S2, No murmurs, Tachycardic Abdomen: Bowel Sounds Present, Soft, Non Tender, Obese Extremities: No cyanosis, Clubbing, Edema Skin: No breakdown Musculoskeletal: No Muscle Wasting Lymphatic: No Cervical, Supraclavicular, or Inguinal Adenopathy Neurological: - - No focal neurological deficits. Currently sedated. Vital Signs Temp Pulse Resp BP Pulse Ox 97.0 F L 89 25 H 152/62 H 91 08/05/19 04:00 08/05/19 06:00 08/05/19 06:00 08/05/19 06:00 08/05/19 06:00 Oxygen Flow Rate (L/min) 40 Oxygen Delivery Method Mechanical Ventilator Weight: 219 lb 12.814 oz Body Mass Index (BMI) 35.4 Intake and Output for Last 24 Hours 08/03/19 08/04/19 08/05/19 23:59 23:59 23:59 Intake Total 2925.28 / 3034.41 1620.53 / 2204.53 1211.70 / 1211.70 Output Total 2275 / 2275 300 / 400 200 / 200 Balance 650.28 / 759.41 1320.53 / 1804.53 1011.70 / 1011.70 Labs (Last 48 Hours) 08/01/19 08/03/19 08/03/19 16:35 05:30 12:10 WBC RBC Hgb Hct MCV MCH MCHC RDW Std Deviation RDW Coeff of Kimberlee Plt Count MPV Immature Gran % (Auto) Neut % (Auto) Lymph % (Auto) Pershing % (Auto) Eos % (Auto) Baso % (Auto) Absolute Neuts (auto) Absolute Lymphs (auto) Nucleated RBC % Differential Comment SCANNED Sodium Potassium Chloride Carbon Dioxide Anion Gap BUN Creatinine Estim Creat Clear Calc Est GFR (MDRD) Af Amer Est GFR (MDRD) Non-Af BUN/Creatinine Ratio Glucose Calcium Random Vancomycin Hep B Core Total Ab Negative POC Glucose 140 H 08/03/19 08/03/19 08/04/19 18:02 23:36 04:00 WBC 17.2 H RBC 2.73 L Hgb 7.9 L Hct 25.5 L MCV 93.4 MCH 28.9 MCHC 31.0 L RDW Std Deviation 46.2 H RDW Coeff of Kimberlee 13.7 Plt Count 170 MPV 10.4 Immature Gran % (Auto) 1.500 H Neut % (Auto) 88.0 H Lymph % (Auto) 3.7 L Pershing % (Auto) 6.7 Eos % (Auto) 0.0 Baso % (Auto) 0.1 Absolute Neuts (auto) 15.1 H Absolute Lymphs (auto) 0.64 L Nucleated RBC % 0.1 Differential Comment Sodium Potassium Chloride Carbon Dioxide Anion Gap BUN Creatinine Estim Creat Clear Calc Est GFR (MDRD) Af Amer Est GFR (MDRD) Non-Af BUN/Creatinine Ratio Glucose Calcium Random Vancomycin Hep B Core Total Ab POC Glucose 226 H 270 H 08/04/19 08/04/19 08/04/19 04:00 05:13 11:43 WBC RBC Hgb Hct MCV MCH MCHC RDW Std Deviation RDW Coeff of Kimberlee Plt Count MPV Immature Gran % (Auto) Neut % (Auto) Lymph % (Auto) Pershing % (Auto) Eos % (Auto) Baso % (Auto) Absolute Neuts (auto) Absolute Lymphs (auto) Nucleated RBC % Differential Comment Sodium 131 L Potassium 4.5 Chloride 99 Carbon Dioxide 25.0 Anion Gap 7 BUN 56 H Creatinine 2.96 H Estim Creat Clear Calc 17.67 Est GFR (MDRD) Af Amer 21 L Est GFR (MDRD) Non-Af 17 L BUN/Creatinine Ratio 18.9 Glucose 286 H Calcium 7.3 L Random Vancomycin Hep B Core Total Ab POC Glucose 270 H 187 H 08/04/19 08/05/19 08/05/19 17:13 00:29 04:40 WBC RBC Hgb Hct MCV MCH MCHC RDW Std Deviation RDW Coeff of Kimberlee Plt Count MPV Immature Gran % (Auto) Neut % (Auto) Lymph % (Auto) Pershing % (Auto) Eos % (Auto) Baso % (Auto) Absolute Neuts (auto) Absolute Lymphs (auto) Nucleated RBC % Differential Comment Sodium Potassium Chloride Carbon Dioxide Anion Gap BUN Creatinine Estim Creat Clear Calc Est GFR (MDRD) Af Amer Est GFR (MDRD) Non-Af BUN/Creatinine Ratio Glucose Calcium Random Vancomycin Pending Hep B Core Total Ab POC Glucose 191 H 206 H 08/05/19 08/05/19 08/05/19 04:40 04:40 06:00 WBC 28.0 H RBC 3.02 L Hgb 8.9 L Hct 28.2 L MCV 93.4 MCH 29.5 MCHC 31.6 L RDW Std Deviation 47.7 H RDW Coeff of Kimberlee 14.0 Plt Count 249 MPV 11.1 Immature Gran % (Auto) 3.000 H Neut % (Auto) 71.0 H Lymph % (Auto) 17.8 L Pershing % (Auto) 7.6 Eos % (Auto) 0.4 Baso % (Auto) 0.2 Absolute Neuts (auto) 19.9 H Absolute Lymphs (auto) 4.99 H Nucleated RBC % 0.1 Differential Comment COMMENT Sodium 134 L Potassium 4.6 Chloride 101 Carbon Dioxide 25.0 Anion Gap 8 BUN 82 H Creatinine 4.00 H Estim Creat Clear Calc 13.08 Est GFR (MDRD) Af Amer 15 L Est GFR (MDRD) Non-Af 12 L BUN/Creatinine Ratio 20.5 H Glucose 189 H Calcium 7.4 L Random Vancomycin Hep B Core Total Ab POC Glucose 172 H Clinical Impression(s) from Imaging Studies Chest X-Ray 07/29/19 21:40 IMPRESSION: No acute disease status post OG tube and multiple line placement Electronically Signed: Kris Boggs MD at 21:58 EDT , Service support , Chest X-Ray 08/01/19 14:17 IMPRESSION: Left-sided temporary dialysis catheter as been placed with the tip at the junction of the superior vena cava and right atrium. There has been no change since prior study. Electronically Signed: Sunil Encinas, at 15:08 EDT , Service support , Medical Necessity - Tobacco Use Smoking Status: Former smoker Assessment/Plan All Active Problems (Last Reviewed 07/29/19 @ 20:[address] Feliberto Rahman MD) Septic shock (Acute) Respiratory arrest before cardiac arrest (Acute) Acute kidney injury (Acute) Non-ST elevated myocardial infarction (Acute) RECOMMENDATIONS: 1. Following a discussion with the patient's family, plan to pursue comfort care measures. 2. CODE STATUS updated to DNR comfort care. 3. Orders for pain medications and anxiolytics have been placed in preparation for palliative withdrawal of life support. 4. If the patient survives today, referral can be placed to hospice care services for evaluation. 5. At this time, will sign off from a critical care perspective. IMPRESSIONS: 1. Acute on chronic combined respiratory failure secondary to presumed COPD exacerbation secondary to pneumonia versus COVID-19 Unclear etiology of initial respiratory arrest. Patient may have a viral etiology for COPD exacerbation, but work-up including COVID have been negative. Given advanced lung disease, infiltrates may not be present on initial imaging. Patient had significant secretions suggesting a COPD exacerbation. Agree with empiric antibiotics to complete a 10-day course. Patient with significantly depressed lung function at baseline (FEV1 26%). Following a goals of care discussion with the patient's family, the decision has been made to transition the patient to comfort care measures. Plans for terminal extubation and involvement of hospice care services. 2. Non-ST elevation ID following cardiopulmonary arrest/shock Previous echocardiogram is dated, but showed normal function previously. Repeat echocardiogram shows no significant changes. Patient has had a significant elevation in troponin to 12.5. Clinical course would be suggestive of distributive shock secondary to sepsis versus arrest. Patient may need to be seen by cardiology for possible heart catheterization, but would attempt stabilization initially. Patient is currently on aspirin. 3. Acute kidney injury secondary to #1 and #2 Medical suspicion for prerenal etiology secondary to previous problems. Continue hemodialysis support and volume optimization per nephrology recommendations. 4. History of noncompliance/obesity/AISSATOU Complicates care, management, recovery and prognosis. CODE STATUS updated to DNRCC, as noted above. TIME: 39 minutes of critical care time, independent of procedures, was spent addressing the patient's acute on chronic combined respiratory failure, COPD with exacerbation, non-ST elevation ID, acute kidney injury, review of all data and collaboration with the care team. ([id number]) [id number]: [id number] Critical care first hour
[2019-08-05] MEDS: Ipratropium/Albuterol Sulfate 3 ML AMPUL.NEB INHALATION ×2 (06:26→11:23)
[2019-08-05] MEDS: fentaNYL drip 100 ML 7.5 MCG IV (06:53)
[2019-08-05 07:19] LABS: Vancomycin, Random Level 26.2 ug/mL (0.0-15.0)
[2019-08-05] MEDS: Dexmedetomidine 1,000 mcg in 0.9% NS 240 mL 12.5 MCG CONT INF (08:50)
[2019-08-05 09:30] LABS: Pathologist Review Reviewed
--- NOTE | 2019-08-05 10:01 | CASEMGMT ---
RN CM Note: participated in ICU interdisciplinary rounds.Pt remains intubated, on 40% O2. Levophed off. Dr. Billings plans to speak with re: further plan of care. FRANCINE Ken updated that Hospice referral may be needed today, no order yet. Kristie MEADEN RN ACM
--- NOTE | 2019-08-05 10:15 | NURSING ---
spoke on the phone w/pt's . condition report given, plan of care disc. much disc re trach/peg, pt comfort. Mr. Dacosta indicates, after disc w/pt's sister Manisha, He wishes to remove pt from the vent and provide comfort care. Dr. Billings spoke w/Mr. Dacosta. Orders recd
--- NOTE | 2019-08-05 10:30 | PCM.RX.CS ---
Consult Pharmacy has been consulted to manage selected antiobiotic: Vancomycin Type of Consult: Follow-up Labs: Sodium 134 mmol/L (136-145) L 08/05/19 04:40 Potassium 4.6 mmol/L (3.5-5.1) 08/05/19 04:40 Chloride 101 mmol/L (98-107) 08/05/19 04:40 Carbon Dioxide 25.0 mmol/L (21.0-32.0) 08/05/19 04:40 Anion Gap 8 (5-15) 08/05/19 04:40 BUN 82 mg/dL (7-18) H 08/05/19 04:40 Creatinine 4.00 mg/dL (0.55-1.02) H 08/05/19 04:40 Est GFR (MDRD) Af Amer 15 mL/min (>60) L 08/05/19 04:40 Est GFR (MDRD) Non-Af 12 mL/min (>60) L 08/05/19 04:40 BUN/Creatinine Ratio 20.5 RATIO (10-20) H 08/05/19 04:40 Glucose 189 mg/dL (74-106) H 08/05/19 04:40 Vancomycin Trough 30.7 ug/mL (5.0-15.0) H 08/01/19 00:00 Random Vancomycin 26.2 ug/mL (0.0-15.0) H 08/05/19 04:40 Microbiology: Microbiology 07/29/19 22:00 Blood Culture (Wb) - Central Line Bacteria Detection (PCR) - Final Coag Negative Staph 07/29/19 22:00 Blood Culture (Wb) - Central Line Blood Culture - Final Staphylococcus warneri 07/29/19 Unknown Sputum, Induced/Lukens Gram Stain - Final 07/29/19 Unknown Sputum, Induced/Lukens Respiratory Culture - Final 07/29/19 21:00 Mucosa - Nasopharyngeal Respiratory Panel (PCR) - Final 07/30/19 03:30 Stool C. difficile DNA Amplification - Final 07/29/19 22:10 Urine Catheter - Jimenez Streptococcus pneumoniae Antigen (M - Final 07/29/19 22:10 Urine Catheter - Jimenez Legionella Antigen - Final Goal Trough: 15-20 mcg/mL Pharmacy Plan for Drug Dosin/5--Vancomycin Follow up SrCr 4.0 CrCl 13.08 Weight 99.7kg Vancomycin Random level resulted at 26.2 Recommend holding dose due to elevated level and checking random level 5/6 for possible HD Pharmacy Service will continue to monitor and adjust dosing as required.
[2019-08-05] MEDS: TITRATION PARAMETER CHANGE 1 EACH IV (11:00)
[2019-08-05] MEDS: 0.9% Saline Lock 10 ML Syringe IV ×5 (11:40→18:14)
--- NOTE | 2019-08-05 11:40 | CASEMGMT ---
FRANCINE spoke with RN. Patient's sister, Manisha is on her way in to the hospital. Once she arrives they are going to extubate patient. RN indicated patient will likely not need Hospice as she will likely not make it that long. FRANCINE advised RN to call SW if needed. Rafia ARNOLD MSW
--- NOTE | 2019-08-05 11:56 | CHAPLAIN ---
Type of Pastoral Visit ___ Initial Visit ___ Follow-up Visit ___ On-call Visit ___ General Patient Visit ___ Spiritual Assessment ___ Family Conference ___ Bereavement ___ Rapid Response ___ Code Blue ___ Other (describe below) Pastoral Care Referral From ___ Patient ___ Family ___ Nurse ___ Physician ___ Keller Machine Operator ___ Bench Press Operator ___ Other (describe below) Sacrament/Intervention ___ Active listening ___ Anointing ___ Adventism ___ Bereavement ___ Communion ___ [place] exploration ___ ___ Life review ___ Prayer ___ Reconciliation ___ Sacrament of Sick ___ Supportive presence ___ Wedding ___ Other (describe below) Pastoral Comments RN advises this keller machine operator that pt will be extubated and waiting on sister to arrive; keller machine operator to be called to attend to family member at that time
[2019-08-05] MEDS: Morphine 2 MG/ML Syringe IV ×6 (13:24→18:13)
[2019-08-05] MEDS: LORazepam 2 MG/ML Syringe IV ×3 (13:25→18:13)
--- NOTE | 2019-08-05 15:13 | PN.RENAL_ITS ---
Patient Problems: Active and Suspected Problems (Last Reviewed 07/29/19 @ 20:[address] Feliberto Rahman MD) Pneumonia (Suspected) Septic shock (Acute) Respiratory arrest before cardiac arrest (Acute) Acute kidney injury (Acute) Non-ST elevated myocardial infarction (Acute) Subjective: No new events - Physical Exam Vitals/I&O's: Vital Signs Temp Pulse Resp BP Pulse Ox 97.4 F L 116 H 15 87/41 L 89 08/05/19 08:00 08/05/19 11:24 08/05/19 11:24 08/05/19 12:00 08/05/19 11:00 Oxygen Flow Rate (L/min) 3 Oxygen Delivery Method Nasal Cannula Weight: 99.7 kg Body Mass Index (BMI) 35.4 Intake and Output for Last 24 Hours 08/03/19 08/04/19 08/05/19 23:59 23:59 23:59 Intake Total 2925.28 / 3034.41 1620.53 / 2204.53 1627.87 / 1627.87 Output Total 2275 / 2275 300 / 400 250 / 250 Balance 650.28 / 759.41 1320.53 / 1804.53 1377.87 / 1377.87 HEENT: Atraumatic, PERRLA, EOMI, Normocephalic Neck: Supple, No JVD, Negative Carotid Bruits Lungs: Clear to auscultation, Normal air movement Cardiovascular: Regular rate, No murmurs Abdomen: Bowel Sounds Present, Soft, Non Tender Extremities: No edema, Capillary Refill Less than 3 Seconds Skin: No rashes, No breakdown Musculoskeletal: No Tenderness to Palpation of Joints or Extremities Laboratory Results 08/04/19 17:13: POC Glucose 191 H 08/05/19 00:29: POC Glucose 206 H 08/05/19 04:40: Random Vancomycin 26.2 H 08/05/19 04:40: WBC 28.0 H, RBC 3.02 L, Hgb 8.9 L, Hct 28.2 L, MCV 93.4, MCH 29.5, MCHC 31.6 L, RDW Std Deviation 47.7 H, RDW Coeff of Kimberlee 14.0, Plt Count 249, MPV 11.1, Immature Gran % (Auto) 3.000 H, Neut % (Auto) 71.0 H, Lymph % (Auto) 17.8 L, [place]comb % (Auto) 7.6, Eos % (Auto) 0.4, Baso % (Auto) 0.2, Absolute Neuts (auto) 19.9 H, Absolute Lymphs (auto) 4.99 H, Nucleated RBC % 0.1, Differential Comment COMMENT, Diff Path Review Reviewed 08/05/19 04:40: Sodium 134 L, Potassium 4.6, Chloride 101, Carbon Dioxide 25.0, Anion Gap 8, BUN 82 H, Creatinine 4.00 H, Estim Creat Clear Calc 13.08, Est GFR (MDRD) Af Amer 15 L, Est GFR (MDRD) Non-Af 12 L, BUN/Creatinine Ratio 20.5 H, Glucose 189 H, Calcium 7.4 L 08/05/19 06:00: POC Glucose 172 H Current Medications Lorazepam (Ativan) 0.5 - 1 mg IV Q2H PRN PRN Reason: ANXIETY Last Admin: 08/05/19 13:25 Dose: 1 mg Documented by: Morphine Sulfate () 2 - 4 mg IV Q15M PRN PRN Reason: Respiratory Distress or Pain Last Admin: 08/05/19 14:48 Dose: 2 mg Documented by: Sodium Chloride (0.9% Nacl (Sterile) Posiflush) 10 - 40 ml IV UD PRN PRN Reason: Port access or dressing change Medical Necessity - Tobacco Use Smoking Status: Former smoker Assessment/Plan All Active Problems (Last Reviewed 07/29/19 @ 20:[address] Feliberto Rahman MD) Septic shock (Acute) Respiratory arrest before cardiac arrest (Acute) Acute kidney injury (Acute) Non-ST elevated myocardial infarction (Acute) Acute renal failure. No prior kidney disease as per records. Most likely ATN in the setting of prolonged cardiac arrest. She has been anuric since admission. BUN, creatinine are worse. Urine output remains very poor. Bor derline hyperkalemia, volume overload. Failed spontaneous breathing trial. appears edematous on exam. respiratory failure. advanced pneumonia. remains on vent. Patient is comfort care only. Terminal extubation today.
--- NOTE | 2019-08-05 15:50 | CHAPLAIN ---
Type of Pastoral Visit ___ Initial Visit ___ Follow-up Visit ___ On-call Visit ___ General Patient Visit ___ Spiritual Assessment ___ Family Conference ___ Bereavement ___ Rapid Response ___ Code Blue _x__ End of LIfe - Other (describe below) Pastoral Care Referral From ___ Patient _x__ Family _x__ Nurse ___ Physician ___ Sanitation Inspector ___ Splicing Technician ___ Other (describe below) Sacrament/Intervention _x__ Active listening ___ Anointing ___ Faith _x__ Bereavement ___ Communion ___ Brook exploration ___ _x__ Life review _x__ Prayer ___ Reconciliation ___ Sacrament of Sick _x__ Supportive presence ___ Wedding ___ Other (describe below) Pastoral Comments met with sister and then with spouse of patient who came to sit with patient after extubation; before extubation the patient is responsive to questions and nods her head in approval for a prayer; after extubation pt is declining and not expected to live; sat with family members to offer presence and support; listen to family talk about patient; gave time; left and returned to room later to find same circumstances; family does not have a brook connection or spiritual leader/noise tester but open to spiritual care at this time
--- NOTE | 2019-08-05 17:16 | PN_ITS ---
Patient Problems: Active and Suspected Problems (Last Reviewed 07/29/19 @ 20:[address] Feliberto Rahman MD) Pneumonia (Suspected) Septic shock (Acute) Respiratory arrest before cardiac arrest (Acute) Acute kidney injury (Acute) Non-ST elevated myocardial infarction (Acute) Subjective: Patient seen and examined. Patient had failed spontaneous breathing trial and was not even extubated yesterday because she became agitated. Patient has remained agitated today and became tachycardic and tachypneic also on the breathing trial. Per discussion with meal packer, plan was to discuss goals of care with family. Creatinine had trended up to 4 and white cell count has gone up to 28. Vitals/I&O's: Vital Signs Temp Pulse Resp BP Pulse Ox 97.4 F L 116 H 15 87/41 L 89 08/05/19 08:00 08/05/19 11:24 08/05/19 11:24 08/05/19 12:00 08/05/19 11:00 Oxygen Flow Rate (L/min) 3 Oxygen Delivery Method Nasal Cannula Weight: 219 lb 12.814 oz Body Mass Index (BMI) 35.4 Intake and Output for Last 24 Hours 08/03/19 08/04/19 08/05/19 23:59 23:59 23:59 Intake Total 2925.28 / 3034.41 1620.53 / 2204.53 1627.87 / 1627.87 Output Total 2275 / 2275 300 / 400 250 / 250 Balance 650.28 / 759.41 1320.53 / 1804.53 1377.87 / 1377.87 General: - - sedated, mildly agitated, RASS score is +2 HEENT: Atraumatic, PERRLA, EOMI, Normocephalic Oral: Moist Mucosa Neck: Supple, No JVD, Negative Carotid Bruits Lungs: Clear to auscultation, Normal air movement,intubated Cardiovascular: Regular rate, Regular Rhythm, Normal S1, Normal S2, No murmurs Abdomen: Bowel Sounds Present, Soft, Non Tender, Non-Distended, No Hepato- splenomegaly Extremities: No clubbing, No cyanosis, No edema, Capillary Refill Less than 3 Seconds Skin: No rashes, No breakdown Musculoskeletal: No Tenderness to Palpation of Joints or Extremities Lymphatic: No Cervical, Supraclavicular, or Inguinal Adenopathy Neurological: Cranial nerves II-XII grossly intact, Neuro grossly intact, - Psych/Mental Status: Flat Affect, - - sedated, RASS score is+2 Laboratory Results 08/04/19 17:13: POC Glucose 191 H 08/05/19 00:29: POC Glucose 206 H 08/05/19 04:40: Random Vancomycin 26.2 H 08/05/19 04:40: WBC 28.0 H, RBC 3.02 L, Hgb 8.9 L, Hct 28.2 L, MCV 93.4, MCH 29.5, MCHC 31.6 L, RDW Std Deviation 47.7 H, RDW Coeff of Kimberlee 14.0, Plt Count 249, MPV 11.1, Immature Gran % (Auto) 3.000 H, Neut % (Auto) 71.0 H, Lymph % (Auto) 17.8 L, Jewell % (Auto) 7.6, Eos % (Auto) 0.4, Baso % (Auto) 0.2, Absolute Neuts (auto) 19.9 H, Absolute Lymphs (auto) 4.99 H, Nucleated RBC % 0.1, Differential Comment COMMENT, Diff Path Review Reviewed 08/05/19 04:40: Sodium 134 L, Potassium 4.6, Chloride 101, Carbon Dioxide 25.0, Anion Gap 8, BUN 82 H, Creatinine 4.00 H, Estim Creat Clear Calc 13.08, Est GFR (MDRD) Af Amer 15 L, Est GFR (MDRD) Non-Af 12 L, BUN/Creatinine Ratio 20.5 H, Glucose 189 H, Calcium 7.4 L 08/05/19 06:00: POC Glucose 172 H Current Medications Lorazepam (Ativan) 0.5 - 1 mg IV Q2H PRN PRN Reason: ANXIETY Last Admin: 08/05/19 15:48 Dose: 1 mg Documented by: Morphine Sulfate () 2 - 4 mg IV Q15M PRN PRN Reason: Respiratory Distress or Pain Last Admin: 08/05/19 15:48 Dose: 4 mg Documented by: Sodium Chloride (0.9% Nacl (Sterile) Posiflush) 10 - 40 ml IV UD PRN PRN Reason: Port access or dressing change Medical Necessity - Tobacco Use Smoking Status: Former smoker Assessment/Plan All Active Problems (Last Reviewed 07/29/19 @ 20:[address] Feliberto Rahman MD) Septic shock (Acute) Respiratory arrest before cardiac arrest (Acute) Acute kidney injury (Acute) Non-ST elevated myocardial infarction (Acute) 1.Septic shock * Was restarted on Levophed overnight on account of low blood pressures. * cause of septic shock is unclear * cultures are negative; COVID screen was negative. * on IV vancomycin and levofloxacin * 2. Acute on chronic hypoxic and hypercapnic respiratory failure due to COPD exacerbation and pneumonia * p patient was not extubated yesterday as she became very agitated during spontaneous breathing trial. * Intense was discussed goals of care with patient's and plan was for terminal weaning and extubation of patient as said he did not want patient to suffer. * On breathing treatments and IV morphine. * Patient terminally extubated today and put on oxygen by nasal cannula. Family by bedside. * * 3. Nonstemi and cardiopulmonary arrest * troponin peaked at 12.5. cardiology on board; * had cardiac arrest at outside facility and needed CPR * on aspirin. * 2D echo showed Ef of 65% * 4. KEITH * received dialysis as needed. * last had dialysis on 08/03/2019 with removal of 1.9L of fluid. * etiology unclear. In positive fluid balance by 12.35 L since admission. * nephrology on board * 5. Hyponatremia: Sodium is 134 6. Anemia: Hemoglobin is 8.9 today. Stable. No evidence of bleeding. Nutrition: on tube feeding. GI prophylaxis; famotidine DVT prophylaxis; heparin Disposition: Prognosis is very very poor. Patient terminally extubated today. Family by bedside. Inpatient E&M: [id number] [facility] L3
--- NOTE | 2019-08-05 22:50 | NURSING ---
report called to blaine banda
--- NOTE | 2019-08-05 23:00 | NURSING ---
[facility] Attempted to call but no answer did leave a message on his answering machine.
--- NOTE | 2019-08-05 23:19 | NURSING ---
anton was called by cell [phone] and is aware pt is getting [place] [facility]
[2019-08-06 00:28] VITALS: RESP 20
[2019-08-06] MEDS: Morphine 2 MG/ML Syringe IV ×2 (05:15→10:39)
[2019-08-06 08:09] VITALS: BP 94/58; PULSE 93; RESP 20; TEMP 38.1; O2SAT 89
[2019-08-06 08:18] VITALS: PULSE 80
[2019-08-06] MEDS: Atropine Sulfate 1% 2 ml Bottle 4 DRP PO (12:31)
--- NOTE | 2019-08-06 13:06 | CASEMGMT ---
Addendum entered by Tanvi Olivares 08/06/19 13:10: FRANCINE placed a call to [facility] and spoke with RN Birgit and updated her that transport is on way now to [facility] to transport pt to [facility]. Original Note: Social Work Note FRANCINE updated that pt has been accepted to inpatient Hospice unit at [facility]. FRANCINE asked to arrange transportation as [facility]'s transportation is not available today. FRANCINE placed a call to [facility] and arranged transportation. [facility] is sending squad to [facility] now to transport pt. FRANCINE updated Charge Nurse. Transportation form completed and given to Charge Nurse, copy on pt's chart. Tanvi Olivares HEALTH IT SPECIALIST, ENVIRONMENTAL PROJECTS ADVISOR
--- NOTE | 2019-08-06 13:11 | NURSING ---
tried calling Simon did not get through to him so called sister Jihan who was next on the list. Jhian said she would call him.
--- NOTE | 2019-08-06 13:35 | NURSING ---
Called report to Lilliana ROGERS at [facility].
--- NOTE | 2019-08-06 16:31 | PCM.DC.SUM ---
Discharge Date and Diagnosis Date of Admission: 07/29/19 Date of Discharge: 08/06/19 - Primary Discharge Diagnosis acute on chronic hypoxic and hypercapnic respiratory failure septic shock nonstemi cardiopulmonary arrest KEITH hyponatremia anemia - Secondary Discharge Diagnosis Chronic Problems (Last Reviewed 07/29/19 @ 20:[address] Feliberto Rahman MD) Acute and chronic respiratory failure ([id number]) (Chronic) Murmur, cardiac (Chronic) AISSATOU (obstructive sleep apnea) (Chronic) AISSATOU treated with BiPAP (Chronic) Chronic respiratory failure with hypoxia (Chronic) Stage 4 very severe COPD by GOLD classification (Chronic) Hospital Course and Treatment Imaging Results: Diagnostic Data Chest X-Ray 08/01/19 14:17 IMPRESSION: Left-sided temporary dialysis catheter as been placed with the tip at the junction of the superior vena cava and right atrium. There has been no change since prior study. Electronically Signed: Sunil Ce, at 15:08 EDT , Service support , critical care- Dr Torres Nephrology- Dr Sanz Operations: None Procedures: Central line placement Summary of Care Provided: The patient is a 59 year old F with an extensive past medical history as outlined was admitted through the ED on 07/29/2019. She was brought in after she went to [facility] secondary to progressive worsening shortness of breath. Patient had been in hospice care but revoked it prior to coming to the hospital. She also had a cardiac arrest requiring 30 minutes of CPR, 3 rounds of epinephrine, amiodarone and 2 electric shocks and had V. tach, asystole and PEA. She was also placed on Levophed in the outside hospital and a COVID test was also ordered. On arrival in [facility], she was noted to be hypoxic and hypotensive and was continued on Levophed. She also received a bolus of vasopressin. She had been intubated prior to arrival in the outside hospital ED. She was also started on stress dose steroids and started on IV antibiotics for septic shock which was thought to be likely due to pneumonia. She was started on IV vancomycin and Levaquin as well as azithromycin. Troponins also subsequently increased and she was diagnosed with non-STEMI. Troponins peaked at around 12. She was started on heparin drip and aspirin and 2D echocardiogram was ordered. Cardiology was also consulted. She was also noted to have severe lactic acidosis which was thought to be due to the septic shock. COVID screen came back negative. Cardiology evaluated patient and plan was for further cardiac work-up once she was hemodynamically stable. Blood cultures grew coagulase negative staph and respiratory panel was also negative. Urine for strep and Legionella were negative. Patient's hospital course was very complicated and she failed multiple spontaneous breathing trials, getting very tachycardic and tachypneic during the process. 2D echo done showed EF of 65%. Hospital course was also complicated by the KEITH which required dialysis and was thought to be due to ATN. 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 Family decided to withdraw all care and patient was terminally extubated on 08/05/2019. Patient was put on oxygen by nasal cannula and transferred out of the ICU onto the [facility] floor. Patient continued to deteriorate and hospice service was consulted. Patient was deemed fit for hospice care and was transferred to the inpatient hospice on 08/06/2019. Patient was seen and examined prior to discharge. She was lying calmly in bed but was very lethargic. She was able to nod or shake her head in response to questions. There was audible gurgling likely due to increased secretions that she could not clear. o/e: Vital Signs Temp Pulse Resp BP Pulse Ox 100.6 F H 80 20 H 94/58 L 89 08/06/19 08:09 08/06/19 08:18 08/06/19 08:09 08/06/19 08:09 08/06/19 08:09 [] General: - - very lethargic, able to nod or shake her head in response to questions HEENT: Atraumatic, PERRLA, EOMI, Normocephalic Oral: dry mucosa Neck: Supple, No JVD, Negative Carotid Bruits Lungs: coarse crackles and audible gurgling in all lung keith; on 2L of oxygen Cardiovascular: Regular rate, Regular Rhythm, Normal S1, Normal S2, No murmurs Abdomen: Bowel Sounds Present, Soft, Non Tender, Non-Distended, No Hepato-splenomegaly Extremities: No clubbing, No cyanosis, No edema, Capillary Refill Less than 3 Seconds Skin: No rashes, No breakdown Musculoskeletal: No Tenderness to Palpation of Joints or Extremities Lymphatic: No Cervical, Supraclavicular, or Inguinal Adenopathy Neurological: Cranial nerves II-XII grossly intact, Neuro grossly intact, - Psych/Mental Status: very lethargic Patient started on atropine drops to help with secretions and also put on p.o. Roxanol as needed. Hospice service consulted. I discussed patient's condition with Dr. Vilchis. Patient was accepted to hospice care, and was transferred to the inpatient hospice service on 08/06/2019. - Physical Exam Vitals/I&O's: Vital Signs Temp Pulse Resp BP Pulse Ox 100.6 F H 80 20 H 94/58 L 89 08/06/19 08:09 08/06/19 08:18 08/06/19 08:09 08/06/19 08:09 08/06/19 08:09 Oxygen Flow Rate (L/min) 3 Oxygen Delivery Method Nasal Cannula Weight: 219 lb 12.814 oz Body Mass Index (BMI) 35.4 Intake and Output for Last 24 Hours 08/04/19 08/05/19 08/06/19 23:59 23:59 23:59 Intake Total 1620.53 / 2204.53 1627.87 / 1627.87 Output Total 300 / 400 250 / 250 250 / 250 Balance 1320.53 / 1804.53 1377.87 / 1377.87 -250 / -250 Home Medications: Medications to take at Discharge albuterol sulfate 90 mcg/actuation aerosol inhaler 2 puff INHALATION Q4H PRN g 04/13/17 chlorpheniramine maleate 4 mg tablet 4 mg PO Q4H PRN 04/13/17 metformin 750 mg tablet,extended release 24 hr 750 mg PO QDAY 04/13/17 pantoprazole 40 mg tablet,delayed release 40 mg PO BID tab 04/13/17 albuterol sulfate 2.5 mg INHALATION Q4H PRN #180 vial 12/06/17 roflumilast 500 mcg tablet 500 mcg PO QDAY #90 tab 01/02/18 budesonide 32 mcg/actuation nasal spray 1 spray INTRANASAL DAILY 01/23/18 chlorpheniramine maleate 4 mg tablet 4 mg PO Q6H 01/23/18 fluticasone 250 mcg-salmeterol 50 mcg/dose blistr powdr for inhalation 1 inh INHALATION BID 01/23/18 furosemide 40 mg tablet 20 mg PO ONCE tab 01/23/18 hydrocodone 7.5 mg-acetaminophen 325 mg tablet 1 tab PO TID PRN tab 01/23/18 loratadine 10 mg tablet 10 mg PO DAILY 01/23/18 lorazepam 1 mg tablet 0.5 mg PO .qid tab 01/23/18 morphine concentrate 100 mg/5 mL (20 mg/mL) oral solution 2.5 mg SUBLINGUAL Q6H ml 01/23/18 sodium chloride 0.65 % nasal spray aerosol 1 spray INTRANASAL Q1-4H PRN 01/23/18 tiotropium bromide 2.5 mcg/actuation mist for inhalation 2 puff INHALATION QDAY #3 ea 06/19/18 azithromycin 250 mg tablet 250 mg PO QDAY #6 tab 10/07/18 prednisone 10 mg tablet 10 mg PO QDAY #30 tab 10/07/18 prednisone 5 mg tablet 5 mg PO QDAY #30 tab 10/14/18 Primary Care Physician: Jayden Celaya DO [Primary Care Provider] - Disposition: Hospice Medical Facility Minutes spent on discharge:: 45 Patient Condition:: Critical Medical Necessity - Tobacco Use Smoking Status: Former smoker Meaningful Use Info Meaningful Use Diagnoses (Choose all that apply): None applicable Inpatient E&M: 640[address] [facility]
== END 2019-08-06 13:40 | disposition hospice, inpatient (51) | DRG 870 ==
LOC: ICU 08-05 16:23 → MS3 08-05 23:20
PROVIDERS: Hospitalist; Internal Medicine Critical Care Medicine; Internal Medicine Nephrology; PCP Preventive Medicine Occupational Medicine; Visit Provider Student in an Organized Health Care Education/Training Program
DX: A41.9 Sepsis, unspecified organism (principal); J96.21 Acute and chronic respiratory failure with hypoxia; J18.9 Pneumonia, unspecified organism; R65.21 Severe sepsis with septic shock; I21.4 Non-ST elevation (NSTEMI) myocardial infarction; N17.0 Acute kidney failure with tubular necrosis; J96.22 Acute and chronic respiratory failure with hypercapnia; I46.9 Cardiac arrest, cause unspecified; I49.01 Ventricular fibrillation; J44.0 Chronic obstructive pulmonary disease with (acute) lower respiratory infection; I47.2 Ventricular tachycardia; J44.1 Chronic obstructive pulmonary disease with (acute) exacerbation; E87.1 Hypo-osmolality and hyponatremia; G93.1 Anoxic brain damage, not elsewhere classified; D64.9 Anemia, unspecified; Z88.0 Allergy status to penicillin; R01.1 Cardiac murmur, unspecified; G47.33 Obstructive sleep apnea (adult) (pediatric); Z99.2 Dependence on renal dialysis; Z91.19 Patient's noncompliance with other medical treatment and regimen; Z79.82 Long term (current) use of aspirin; Z66 Do not resuscitate; Z79.51 Long term (current) use of inhaled steroids; Z82.3 Family history of stroke; Z83.3 Family history of diabetes mellitus; Z87.891 Personal history of nicotine dependence; Z89.519 Acquired absence of unspecified leg below knee; E66.9 Obesity, unspecified; Z68.35 Body mass index [BMI] 35.0-35.9, adult; E11.9 Type 2 diabetes mellitus without complications; E78.5 Hyperlipidemia, unspecified; R34 Anuria and oliguria; Z51.5 Encounter for palliative care
CPT/HCPCS: 31720; 36600; 71045; 80048; 80202; 82550; 82803; 82962; 83605; 83735; 84100; 84478; 84484; 85025; 85610; 85730; 86704; 86706; 87040; 87070; 87149; 87186; 87205; 87340; 87449; 87493; 87633; 87641; 90937; 93005; 93306; 94002; 94003; 94640; 94660; 97110; 97162; 97166; 97530; 97802; 97803; J7030; J7040; J7050; Q9957; A4216; C8929; G0257; J3490